=== PATIENT | female | born 1950 | race Caucasian/White ===

== ENCOUNTER 2021-01-21 09:48 | Outpatient (REF) | payer MEDICARE, MEDICAID, SELFPAY ==
[2021-01-21 10:43] LABS: Estimated Average Glucose 143 mg/dL; Hemoglobin A1c % 6.6 %
[2021-01-21 12:42] LABS: Alanine Aminotransferase 21 U/L (0-31); Albumin Level 4.3 g/dL (3.5-5.0); Alkaline Phosphatase 92 U/L (39-117); Anion Gap 14 (12-20); Aspartate Amino Transferase 17 U/L (5-31); Bilirubin Direct 0.2 mg/dL (0.0-0.5); Bilirubin Total 0.7 mg/dL (0.0-1.0); Blood Urea Nitrogen 19 mg/dL (9-16); Carbon Dioxide 27 mmol/L (22-29); Chloride 106 mmol/L (96-108); Cholesterol 158 mg/dL; Estimated Glomerular Filt Rate > 60; Glucose Random 124 mg/dL (60-115); HDL Cholesterol 40 mg/dL; LDL Cholesterol Calculated 99 mg/dl; Potassium 4.3 mmol/L (3.3-5.1); Sodium 143 mmol/L (135-145); Triglycerides 99 mg/dL
[2021-01-21 12:44] LABS: Thyroid Stimulating Hormone 0.99 uIU/mL (0.32-4.0)
== END 2021-01-21 09:49 | disposition home or self-care (01) ==
LOC: HO.LAB 09:48
PROVIDERS: PCP Internal Medicine; Visit Provider Internal Medicine
DX: R73.9 Hyperglycemia, unspecified (principal)
CPT/HCPCS: 36415; 80048; 80061; 80076; 83036; 84443

== ENCOUNTER 2021-05-27 09:07 | Outpatient (REF) | payer MEDICARE, MEDICAID, SELFPAY ==
--- NOTE | ~2021-05-27 | CT_ITS ---
EXAMINATION: CT HEAD WITHOUT CONTRAST CLINICAL INFORMATION: Concussion/head trauma COMPARISON: None TECHNIQUE: Contiguous axial imaging was performed from the skull base to vertex without intravenous administration of contrast. This CT examination was performed using dose optimization techniques as appropriate, variously including the following: *Automated exposure control *Adjustment of mA and/or kV according to patient size (this includes techniques or standardized protocols for targeted exams where dose is matched to indication/reason for exam; i.e. extremities or head) *Use of iterative reconstruction technique DLP: 642 mGy-cm FINDINGS: There is no evidence of an extra-axial collection. There is no evidence of intra-axial or extra-axial hemorrhage. The ventricles and extra-axial CSF spaces are appropriate. Whelan-white matter differentiation is normal. There is a small calcified or ossified 5 x 10 mm density adjacent to the right occipital lobe, question representing a small meningioma. No other mass, mass effect or infarct is seen. Review at bone windows is normal. No skull fracture is seen. Visualized paranasal sinuses, mastoid air cells and middle ears are clear. CT/CT head/brain wo con IMPRESSION: No acute intracranial findings. Question small 5 x 10 mm meningioma adjacent to the right occipital lobe.
== END 2021-05-27 09:08 | disposition home or self-care (01) ==
LOC: HO.CT 09:07
PROVIDERS: PCP Internal Medicine; Visit Provider Internal Medicine
DX: S06.0X9A Concussion with loss of consciousness of unspecified duration, initial encounter (principal); X58.XXXD Exposure to other specified factors, subsequent encounter
CPT/HCPCS: 70450

== ENCOUNTER 2021-10-01 16:33 | Emergency (ER) | payer MEDICARE, MEDICAID, SELFPAY ==
--- NOTE | ~2021-10-01 | CT_ITS ---
EXAMINATION: CT ABDOMEN AND PELVIS WITHOUT CONTRAST CLINICAL INFORMATION: Right flank pain radiating to right lower quadrant COMPARISON: CT abdomen pelvis 02/10/2017 TECHNIQUE: Multidetector volumetric imaging was performed from the superior aspect of the liver through the pubic symphysis. Sagittal and coronal reformatted images were obtained on the technologist's workstation. This CT examination was performed using dose optimization techniques as appropriate, variously including the following: *Automated exposure control *Adjustment of mA and/or kV according to patient size (this includes techniques or standardized protocols for targeted exams where dose is matched to indication/reason for exam; i.e. extremities or head) *Use of iterative reconstruction technique DLP: 547 mGy-cm FINDINGS: LUNG BASES: The visualized lung bases are unremarkable. Bibasilar atelectasis is present. LIVER, GALLBLADDER, AND BILIARY TREE: The liver is mildly enlarged measuring 17.5 cm in greatest length. Attenuation is decreased consistent with hepatic steatosis. No focal liver mass or bile duct dilatation is seen. The gallbladder is unremarkable with no evidence of definite radiopaque gallstones, gallbladder wall thickening, or obvious pericholecystic inflammatory changes. Some high density sludge may be present layering in the gallbladder. Gallbladder disease is a consideration, recommend ultrasound. PANCREAS: Unremarkable. SPLEEN: Unremarkable. ADRENAL GLANDS: Unremarkable. KIDNEYS AND URETERS: The kidneys are normal in size, shape, and attenuation. Punctate calcifications are seen in each kidney consistent with small calculi. The largest is on the left measuring only at best 3mm in size. No hydronephrosis, hydroureter, or ureteral calculi seen. No perinephric stranding. A 1.6 cm water density cortical cyst is noted on the right which needs no further follow-up. This is unchanged when compared to the 2017 study. No solid renal masses are seen but assessment without IV contrast is limited. BLADDER: Unremarkable. GASTROINTESTINAL TRACT: There are colonic diverticula without diverticulitis. The small and large bowel are otherwise unremarkable. The appendix is unremarkable. Previously seen thickening of the right lateral conal fascia has resolved. ABDOMINAL WALL: No significant hernia is appreciated. LYMPH NODES: No retroperitoneal lymphadenopathy. VASCULAR: Minimal calcific atherosclerotic changes present in the aorta and iliac vessels. PELVIC VISCERA: Unremarkable. OSSEOUS STRUCTURES: Extensive orthopedic hardware present in the lumbar spine and pelvis. Scoliosis convex to right. Kyphoplasty cement again seen in T11 and T12. Hemangiomas once again noted in the L3 and L4 vertebral bodies. CT/CT abdomen pelvis wo con IMPRESSION: 1. A definite cause for the right flank pain radiating to the right lower quadrant is not found. 2. There is an enlarged fatty liver. 3. There are bilateral punctate renal calculi without obstruction. 4. Colonic diverticula without diverticulitis. 5. Other findings as described above. Fleischner guidelines were followed.
--- NOTE | ~2021-10-01 | US_ITS ---
EXAMINATION: US PELVIS CLINICAL INFORMATION: Right pelvic pain COMPARISON: CT 10/01/2021 TECHNIQUE: Ultrasound of the pelvis is performed using both transabdominal and transvaginal transducers along with Doppler. Transvaginal imaging is performed due to inadequate visualization transabdominally. FINDINGS: Uterus: Uterus not seen, reportedly surgically absent. There are nabothian cysts in the remnant cervix consistent with a supracervical hysterectomy. Adnexa: Neither ovary seen. No adnexal mass. No pelvic free fluid. US/US pelvic and transvaginal IMPRESSION: No adnexal mass seen.
[2021-10-01 17:03] VITALS: BP 173/68; PULSE 60; RESP 16; TEMP 36.6; O2SAT 98; BMI 24.1
--- NOTE | 2021-10-01 17:22 | ED_ITS ---
HPI - Abdominal Pain General Chief Complaint: Abdominal Pain Stated Complaint: abd pain Time Seen by Provider: 10/01/21 17:05 Source: patient Mode of arrival: ambulatory History of Present Illness HPI narrative: 71-year-old female with a past medical history renal stone s/p ureter stenting, partial hysterectomy, presenting to the ED complaining of right flank pain radiating to right lower quadrant since this morning with associated nausea and vomiting. Denies fever, chills, diarrhea/constipation, dysuria/hematuria MD elicited complaint: abdominal pain and flank pain Pertinent past history: kidney stones Onset (ago): hour(s) Location: RLQ and R flank Severity: moderate Radiation: RLQ Associated symptoms: nausea and vomiting Related Data Home Medications Medication Instructions Recorded Confirmed loratadine 10 mg tablet 10 mg PO DAILY 12/31/20 05/02/21 Previous Rx's Medication Instructions Recorded alendronate 70 mg tablet 70 mg PO QWEEK #12 tab 12/26/20 hydroxyzine HCl 25 mg tablet 25 mg PO BEDTIME 30 Days #30 tab 02/28/21 lorazepam 1 mg tablet 1 mg PO DAILY #30 tab 05/08/21 simvastatin 10 mg tablet 10 mg PO DAILY #90 tab 06/16/21 cholecalciferol (vitamin D3) 25 25 mcg PO DAILY #90 cap 07/04/21 mcg (1,000 unit) capsule meloxicam 15 mg tablet 15 mg PO DAILY #10 tab 07/04/21 metformin 750 mg tablet,extended 750 mg PO DAILY #90 tab 07/22/21 release 24 hr Allergies Allergy/AdvReac Type Severity Reaction Status Date / Time Codeine Phosphate Allergy Unknown Unknown Verified 06/04/21 08:56 Review of Systems Review of Systems Constitutional: No Fever, No Chills, No Fatigue, No Malaise ENT/Mouth: No Hearing loss, No Ear Pain, No sore throat Eyes: No Eye Pain, No Swelling, No Redness Cardiovascular: No Chest Pain, No SOB, No Dyspnea on Exertion, No Palpitations Respiratory: No Cough, No Dyspnea Gastrointestinal: + Nausea,+ Vomiting, No Diarrhea, No Constipation, + Abdominal pain Genitourinary: No irregular bleeding, No Dysuria, No Urinary Frequency, No Hematuria, + Flank Pain Musculoskeletal: No joint pain, No Myalgias, No Joint Swelling Skin: No Skin Lesions, No rash Neuro: No Weakness, No Numbness, No Headache Yes all other systems are reviewed and are negative Physical Exam Vital Signs: Vital Signs: Last Vital Signs Temp 97.8 F 10/01/21 17:03 Pulse 60 10/01/21 17:03 Resp 16 10/01/21 17:03 BP 173/68 H 10/01/21 17:03 Pulse Ox 98 10/01/21 17:03 BMI result Body Mass Index 24.1 Const: General: cooperative, healthy appearing and no acute distress Orientation/consciousness: patient oriented x3 Limitations: no limitations HENMT: Head: Yes normal to inspection Ears: hearing grossly normal bilaterally General nose exam: Normal external nose present Face and sinus: Yes normal facial exam Eyes: General: appearance normal, both eyes and all related structures EOM: EOMs intact bilaterally Neck: Neck: Yes normal visual inspection and Yes no meningeal signs Resp: Effort & Inspection: normal respiratory effort and no respiratory distress Auscultation: clear to auscultation bilaterally Cardio: Rate: regular rate Heart sounds: S1 normal heart sound present and S2 normal heart sound present GI: Inspection: Yes normal to inspection Palpation (GI): Soft to palpation, nontender, no guarding and not rigid : General: Yes no CVA tenderness Back/Spine/Pelvis: Back: no CVA tenderness Skin: Rashes: no rashes Wounds: no wounds Neuro: General: patient oriented x3 and no meningeal signs Gait exam (Neuro): Normal gait present Extrem: General: Yes normal to inspection Course Course Course Narrative: -1743--mild leukocytosis of 12.0 -1800--ED care transferred to Dr. Ramirez pending remaining labs, UA, and CT abdomen/pelvis, dispo per results MDM - Abdominal Pain MDM Narrative Medical decision making narrative: 71-year-old female with a past medical history renal stone s/p ureter stenting, partial hysterectomy, presenting to the ED complaining of right flank pain radiating to right lower quadrant since this morning with associated nausea and vomiting. On exam vital signs stable, NAD/nontoxic, abdomen soft/nontender, no CVAT. Concern for renal stone/pyelo vs UTI. Lower concern for appendicitis/diverticulitis or pancreatitis/cholecystitis Plan: Labs, UA, CT abdomen pelvis, IVF, symptomatic treatment, re-evaluate Medical Records Attestation: I reviewed the patient's medical records. Lab Data Attestation: I reviewed the patient's lab results. Result diagrams: 10/01/21 17:30 10/01/21 17:30 Labs: Lab Results 10/01/21 Range/Units 17:30 WBC 12.0 H (4.8-10.8) X10*3/uL RBC 4.88 (4.20-5.50) X10*6/uL Hgb 14.4 (12.0-16.0) g/dl Hct 43.7 (37.0-47.0) % MCV 89.5 (80.0-98.0) fL MCH 29.5 (27.0-33.0) pg MCHC 33.0 (31.0-35.0) g/dl RDW 13.1 (11.0-16.0) % Plt Count 295 (160-400) X10*3/uL MPV 9.9 (9.4-12.3) fL Immature Gran % (Auto) 0.4 (0.0-0.4) % Neut % (Auto) 73.0 (45-73) % Lymph % (Auto) 18.4 L (20-40) % [place] % (Auto) 6.7 (2-11) % Eos % (Auto) 1.1 (0-4) % Baso % (Auto) 0.4 (0-2) % Lymph # (Auto) 2.2 (1.2-4.9) X10*3/uL [place] # (Auto) 0.8 (0.1-1.2) X10*3/uL Eos # (Auto) 0.1 (0.0-0.4) X10*3/uL Baso # (Auto) 0.1 (0.0-0.2) X10*3/uL Abs Immat Gran (auto) 0.05 H (0.00-0.03) X10*3/uL Absolute Neuts (auto) 8.8 H (2.0-8.3) x10*3/uL Absolute Nucleated RBC 0.000 (0.0-0.012) X10*3/uL Nucleated RBC % (auto) 0.0 (0.0-0.2) /100WBC Discharge Plan Discharge Clinical Impression: Acute right flank pain Patient Disposition: Still a Patient Prescriptions: No Action alendronate 70 mg tablet 70 mg PO QWEEK Qty: 12 RF: 1 hydroxyzine HCl 25 mg tablet 25 mg PO BEDTIME 30 Days Qty: 30 RF: 0 lorazepam 1 mg tablet 1 mg PO DAILY Qty: 30 RF: 0 simvastatin 10 mg tablet 10 mg PO DAILY Qty: 90 RF: 1 cholecalciferol (vitamin D3) 25 mcg (1,000 unit) capsule 25 mcg PO DAILY Qty: 90 RF: 0 meloxicam 15 mg tablet 15 mg PO DAILY Qty: 10 RF: 0 metformin 750 mg tablet extended release 24 hr 750 mg PO DAILY Qty: 90 RF: 0 loratadine 10 mg tablet 10 mg PO DAILY RF: 0 Referrals: Dean Colmenares MD [Primary Care Provider] - 2 days [facility] Past Medical History Attestation statement: The following information was validated with the patient. Surgical History Encounter for orthopedic aftercare following scoliosis surgery History of colonoscopy History of partial hysterectomy History of root canal procedure History of ureter stent History of vein stripping Status post breast reduction Family History Family History Father No problems noted. Mother Stroke Cancer Brother S/P triple vessel bypass Blind Brother Afib Daughter Bipolar 1 disorder Mental problem Family/Other FH: mental illness Social History Social History Housing: House Alcohol intake: current Alcohol intake frequency: holidays/special occasions only Patient Tobacco Use Status: Never used Tobacco e-Cigarette/Vaping Use: Never Used Second Hand Smoke Exposure: Yes Advance Directives: No Advance Directives Information Provided: Yes service: No Current occupational status: retired
[2021-10-01] MEDS: ondansetron HCL 4 MG/2 ML VIAL IVPUSH ×2 (17:33→19:06)
[2021-10-01] MEDS: Ketorolac Tromethamine 15 MG/ML VIAL IVPUSH ×2 (17:33→17:58)
[2021-10-01 17:34] LABS: MANUAL DIFF FLAG NO
[2021-10-01] MEDS: 0.9 % Sodium Chloride 1,000 ML 999 ML IVCONT (17:34)
[2021-10-01 17:36] LABS: Basophils Absolute Auto 0.1 X10*3/uL (0.0-0.2); Basophils Percent Auto 0.4 % (0-2); Eosinophils Absolute Auto 0.1 X10*3/uL (0.0-0.4); Eosinophils Percent Auto 1.1 % (0-4); Hematocrit 43.7 % (37.0-47.0); Hemoglobin 14.4 g/dl (12.0-16.0); Imm Gran Abs Auto 0.05 X10*3/uL (0.00-0.03); Imm Gran Pct Auto 0.4 % (0.0-0.4); Lymphocytes Absolute Auto 2.2 X10*3/uL (1.2-4.9); Lymphocytes Percent Auto 18.4 % (20-40); Mean Corpuscular Hemoglobin 29.5 pg (27.0-33.0); Mean Corpuscular Volume 89.5 fL (80.0-98.0); Mean Platelet Volume 9.9 fL (9.4-12.3); Monocytes Absolute Auto 0.8 X10*3/uL (0.1-1.2); Monocytes Percent Auto 6.7 % (2-11); Neutrophils Absolute Auto 8.8 x10*3/uL (2.0-8.3); Platelet Count 295 X10*3/uL (160-400); Red Blood Count 4.88 X10*6/uL (4.20-5.50); Red Cell Distribution Width 13.1 % (11.0-16.0)
[2021-10-01 17:59] LABS: Alanine Aminotransferase 21 U/L (0-31); Albumin Level 4.4 g/dL (3.5-5.0); Alkaline Phosphatase 80 U/L (39-117); Anion Gap 12 (12-20); Aspartate Amino Transferase 18 U/L (5-31); Bilirubin Direct 0.2 mg/dL (0.0-0.5); Bilirubin Total 0.5 mg/dL (0.0-1.0); Blood Urea Nitrogen 18 mg/dL (9-16); Calcium 9.8 mg/dL (8.4-10.2); Carbon Dioxide 27 mmol/L (22-29); Chloride 105 mmol/L (96-108); Estimated Glomerular Filt Rate > 60; Glucose Random 134 mg/dL (60-115); Lipase 33 U/L (8-78); Magnesium 2.1 mg/dL (1.6-2.6); Potassium 3.9 mmol/L (3.3-5.1); Sodium 140 mmol/L (135-145); Total Protein 7.2 g/dL (6.5-8.0)
[2021-10-01 18:21] LABS: Appearance Urine CLEAR; Color Urine YELLOW; Glucose Urine UA NEG (NEG); Leukocyte Esterase Urine NEG (NEG); Nitrite Urine NEG (NEG); PH 5.5 (5.0-8.0); Specific Gravity - Urine >= 1.030 (1.005-1.025); Urine Blood NEG (NEG); Urine Ketones NEG (NEG); Urine Protein NEG (NEG-TRACE)
[2021-10-01] MEDS: HYDROmorphone HCl 1 MG/ML SYRINGE IVPUSH (19:06)
== END 2021-10-01 21:14 | disposition home or self-care (01) ==
PROVIDERS: Physician Assistant; Emergency Provider Emergency Medicine; PCP Internal Medicine
DX: R10.31 Right lower quadrant pain (principal); Z79.899 Other long term (current) drug therapy
CPT/HCPCS: 36415; 74176; 76830; 76856; 80048; 80076; 81003; 83690; 83735; 85025; 96361; 96374; 96375; 96376; 99283; 99284; J1170; J1885; J2405

== ENCOUNTER 2021-10-07 13:02 | Outpatient (REF) | payer MEDICARE, MEDICAID, SELFPAY ==
--- NOTE | ~2021-10-07 | XR_ITS ---
EXAMINATION: XR ABDOMEN KUB CLINICAL INDICATION: Constipation. COMPARISON: CT 10/01/2021 TECHNIQUE: AP view of the abdomen. FINDINGS: Normal bowel gas pattern. No dilated loops of bowel. Scattered gas throughout the colon. No abnormal colonic stool burden. Spinal fusion hardware in place with scoliotic curvature of the spine. Degenerative changes of the hips, particularly of the right hip. XR/XR KUB IMPRESSION: Normal bowel gas pattern. No abnormal colonic stool burden.
== END 2021-10-07 13:03 | disposition home or self-care (01) ==
LOC: HO.XRAY 13:02
PROVIDERS: PCP Internal Medicine; Visit Provider Nurse Practitioner Family
DX: K59.00 Constipation, unspecified (principal)
CPT/HCPCS: 74018

== ENCOUNTER 2022-03-10 10:26 | Outpatient (REF) | payer MEDICARE, MEDICAID, SELFPAY ==
--- NOTE | ~2022-03-10 | CT_ITS ---
EXAMINATION: CT HEAD WITHOUT CONTRAST CLINICAL INFORMATION: Benign neoplasm of meninges. COMPARISON: CT brain 05/27/2021. TECHNIQUE: Contiguous axial imaging was performed from the skull base to vertex without intravenous administration of contrast. This CT examination was performed using dose optimization techniques as appropriate, variously including the following: *Automated exposure control *Adjustment of mA and/or kV according to patient size (this includes techniques or standardized protocols for targeted exams where dose is matched to indication/reason for exam; i.e. extremities or head) *Use of iterative reconstruction technique DLP: 670 mGy-cm FINDINGS: There is no evidence of acute intracranial hemorrhage or territorial infarction. No abnormal mass effect or midline shift is seen. Whelan to white matter differentiation is well preserved. No extra-axial fluid collections are identified. There is an extra-axial right parietal calcified lesion likely meningioma or dural calcification axial image 18/2. Dense pineal gland calcification is visualized, as well. The ventricles are normal in size. There is no abnormal attenuation within the brain parenchyma. The osseous structures and soft tissues are normal. The mastoid air cells and visualized portions of the paranasal sinuses are well aerated. CT/CT head/brain wo con IMPRESSION: No acute intracranial process seen. 7 mm calcified lesion right posterior parietal region likely calcified meningioma or calcification.
== END 2022-03-10 10:27 | disposition home or self-care (01) ==
LOC: HO.CT 10:26
PROVIDERS: Visit Provider Internal Medicine
DX: D32.9 Benign neoplasm of meninges, unspecified (principal)
CPT/HCPCS: 70450

== ENCOUNTER 2022-04-21 08:12 | Outpatient (REF) | payer MEDICARE, MEDICAID, SELFPAY ==
[2022-04-21 09:14] LABS: Hematocrit 45.9 % (37.0-47.0); Hemoglobin 14.9 g/dl (12.0-16.0); Mean Corpuscular HGB Conc 32.5 g/dl (31.0-35.0); Mean Corpuscular Volume 89.5 fL (80.0-98.0); Mean Platelet Volume 10.3 fL (9.4-12.3); Platelet Count 283 X10*3/uL (160-400); Red Blood Count 5.13 X10*6/uL (4.20-5.50); White Blood Count 6.6 X10*3/uL (4.8-10.8)
[2022-04-21 09:25] LABS: Estimated Average Glucose 128 mg/dL; Hemoglobin A1c % 6.1 %
[2022-04-21 09:34] LABS: Appearance Urine CLEAR; Color Urine YELLOW; Glucose Urine UA NEG (NEG); Leukocyte Esterase Urine TRACE (NEG); Nitrite Urine NEG (NEG); Urine Blood NEG (NEG); Urine Ketones NEG (NEG); Urine Protein NEG (NEG-TRACE)
[2022-04-21 09:46] LABS: RBC Urine 0 /HPF (0); Squamous Epithelial Cell Urine 1+ /LPF
[2022-04-21 10:42] LABS: Alanine Aminotransferase 19 U/L (0-31); Albumin Level 4.3 g/dL (3.5-5.0); Alkaline Phosphatase 76 U/L (39-117); Anion Gap 11 (12-20); Aspartate Amino Transferase 16 U/L (5-31); Bilirubin Direct 0.2 mg/dL (0.0-0.5); Bilirubin Total 0.6 mg/dL (0.0-1.0); Blood Urea Nitrogen 17 mg/dL (9-16); Calcium 9.4 mg/dL (8.4-10.2); Carbon Dioxide 29 mmol/L (22-29); Chloride 107 mmol/L (96-108); Cholesterol 157 mg/dL; Estimated Glomerular Filt Rate > 60; Glucose Random 110 mg/dL (60-115); HDL Cholesterol 42 mg/dL; LDL Cholesterol Calculated 99 mg/dl; Potassium 4.4 mmol/L (3.3-5.1); Sodium 143 mmol/L (135-145); Total Protein 6.8 g/dL (6.5-8.0); Triglycerides 81 mg/dL
[2022-04-21 10:49] LABS: Thyroid Stimulating Hormone 1.04 uIU/mL (0.32-4.0)
== END 2022-04-21 08:13 | disposition home or self-care (01) ==
LOC: HO.LAB 08:12
PROVIDERS: PCP Internal Medicine; Visit Provider Internal Medicine
DX: D32.9 Benign neoplasm of meninges, unspecified (principal); R73.9 Hyperglycemia, unspecified; E78.5 Hyperlipidemia, unspecified
CPT/HCPCS: 36415; 80048; 80061; 80076; 81001; 83036; 84443; 85027

== ENCOUNTER 2023-03-31 09:05 | Outpatient (REF) | payer MEDICARE, MEDICAID, SELFPAY ==
[2023-03-31 09:34] LABS: Hemoglobin 14.7 g/dl (12.0-16.0); Mean Corpuscular HGB Conc 32.7 g/dl (31.0-35.0); Mean Corpuscular Hemoglobin 29.1 pg (27.0-33.0); Mean Corpuscular Volume 89.1 fL (80.0-98.0); Mean Platelet Volume 10.3 fL (9.4-12.3); Platelet Count 299 X10*3/uL (160-400); Red Blood Count 5.05 X10*6/uL (4.20-5.50); Red Cell Distribution Width 13.2 % (11.0-16.0); White Blood Count 11.1 X10*3/uL (4.8-10.8)
[2023-03-31 09:49] LABS: Estimated Average Glucose 128 mg/dL; Hemoglobin A1c % 6.1 %
[2023-03-31 10:28] LABS: Erythrocyte Sedimentation Rate 2 MM/HR (0-20)
[2023-03-31 10:44] LABS: Alanine Aminotransferase 24 U/L (0-31); Albumin Level 4.3 g/dL (3.5-5.0); Alkaline Phosphatase 78 U/L (39-117); Anion Gap 11 (12-20); Aspartate Amino Transferase 15 U/L (5-31); Bilirubin Direct 0.2 mg/dL (0.0-0.5); Bilirubin Total 0.7 mg/dL (0.0-1.0); Blood Urea Nitrogen 24 mg/dL (9-16); Calcium 9.9 mg/dL (8.4-10.2); Carbon Dioxide 31 mmol/L (22-29); Chloride 107 mmol/L (96-108); Cholesterol 167 mg/dL; Estimated Glomerular Filt Rate > 60; Glucose Random 100 mg/dL (60-115); HDL Cholesterol 46 mg/dL; LDL Cholesterol Calculated 94 mg/dl; Potassium 4.7 mmol/L (3.3-5.1); Sodium 144 mmol/L (135-145); Triglycerides 136 mg/dL
[2023-03-31 11:00] LABS: Appearance Urine Clear; Color Urine Yellow; Glucose Urine UA Negative (Negative); Leukocyte Esterase Urine Large (3+) (Negative); Nitrite Urine Negative (Negative); PH 5.5 (5.0-9.0); Specific Gravity - Urine 1.025 (1.005-1.025); UMIC TRIGGER UA YES; Urine Blood Negative (Negative); Urine Ketones Trace mg/dL (Negative); Urine Protein Trace mg/dL (Neg-Trace)
[2023-03-31 11:02] LABS: Thyroid Stimulating Hormone 1.02 uIU/mL (0.32-4.0)
[2023-03-31 11:22] LABS: Bacteria Urine None Seen (None Seen); Calcium Oxalate Crystals Urine Present; Hyaline Casts Urine 0-2 /LPF (0-2); Renal Epithelial Cells Urine Present; Transitional Epi Cells Urine Present
== END 2023-03-31 09:06 | disposition home or self-care (01) ==
LOC: HO.LAB 09:05
PROVIDERS: Nurse Practitioner Family; PCP Internal Medicine; Visit Provider Internal Medicine
DX: D32.9 Benign neoplasm of meninges, unspecified (principal); F41.9 Anxiety disorder, unspecified; R73.9 Hyperglycemia, unspecified; H92.01 Otalgia, right ear; R51.9 Headache, unspecified; E78.5 Hyperlipidemia, unspecified
CPT/HCPCS: 36415; 80048; 80061; 80076; 81001; 81003; 83036; 84443; 85027; 85652; 86141

== ENCOUNTER → 2023-04-23 08:28 | Outpatient (BNVA) | payer MEDICARE, MEDICAID, SELFPAY | PROVIDERS: PCP Internal Medicine; Visit Provider Nurse Practitioner | DX: Z01.818 Encounter for other preprocedural examination (principal); D32.9 Benign neoplasm of meninges, unspecified | CPT/HCPCS: 99202 ==

== ENCOUNTER 2023-07-06 10:58 | Day surgery (SDC) | payer MEDICARE, MEDICAID, SELFPAY ==
[2023-07-01 10:59] VITALS: BMI 25.7
--- NOTE | 2023-07-02 13:21 | HO.ANESPROP2 ---
Documented by User: Debbi Pederson NP 07/02/23 13:28 HPI - Anesthesia Eval Consult details Narrative: 73yo F for Colonoscopy PMFSH Active Problems Active Problems: All Active Problems (Updated 07/01/23 @ 15:21 by Dean Colmenares MD) Paronychia of fifth toe of left foot (Acute) Pre-op examination (Acute) Scalp pain (Acute) Otalgia of right ear (Acute) Anxiety (Acute) Hyperlipidemia (Acute) Meningioma (Acute) Constipation (Acute) Rash (Acute) Right low back pain (Acute) Concussion (Acute) Annual physical exam (Acute) Hyperglycemia (Acute) Past Medical History Medical History Anxiety Constipation Diabetes Hyperlipidemia Meningioma Family History Family History Father No problems noted. Mother Stroke Cancer Brother S/P triple vessel bypass Blind Brother Afib Daughter Bipolar 1 disorder Mental problem Family/Other FH: mental illness Surgical History Surgical History Encounter for orthopedic aftercare following scoliosis surgery History of colonoscopy History of partial hysterectomy History of root canal procedure History of ureter stent History of vein stripping Status post breast reduction Social History Social History Housing: House Alcohol intake: current Alcohol intake frequency: holidays/special occasions only Patient Tobacco Use Status: Never used Tobacco e-Cigarette/Vaping Use: Never Used Second Hand Smoke Exposure: Yes Are you DNR?: No Advance Directives: No Advance Directives Information Provided: Yes Nutrition Risks: No Nutritional Risk service: No Current occupational status: retired Cognitive needs: No Hearing needs: No Vision needs: No Meds Allergies Allergy/AdvReac Type Severity Reaction Status Date / Time codeine Allergy Unknown Verified 04/25/23 11:55 Home Medications Medication Instructions Recorded Confirmed Last Taken Type loratadine 10 mg tablet 10 mg PO DAILY 12/31/20 07/06/23 Unknown History Exam Exam Date and Time: July 02, 2023 1321 Height,Weight and Vital Signs: Height 5 ft 4 in Weight 68.039 kg Pertinent Lab Results Pertinent Lab Results: Laboratory Tests 03/31/23 03/31/23 09:21 09:21 WBC 11.1 H Hgb 14.7 Hct 45.0 Plt Count 299 Sodium 144 Potassium 4.7 Chloride 107 Carbon Dioxide 31 H BUN 24 H Creatinine 0.69 Assessment and Plan Assessment Anesthesia Assessment: Chart Reviewed Documented by User: Tammie Schafer MD 07/06/23 11:52 PMFSH Active Problems Active Problems: All Active Problems (Updated 07/06/23 @ 11:20 by Tammie Schafer MD) Paronychia of fifth toe of left foot (Acute) Pre-op examination (Acute) Scalp pain (Acute) Otalgia of right ear (Acute) Anxiety (Acute) Hyperlipidemia (Acute) ?Meningioma -Initial CT scan 2020 done for head trauma- hit head on satellite dish. Incidental finding. 7mm on latest CT scan 2021. No increase in size compared to 2020 Constipation (Acute) Rash (Acute) Right low back pain (Acute) Concussion (Acute) Annual physical exam (Acute) Hyperglycemia (Acute) Osteoporosis Past Medical History Medical History Anxiety Constipation Diabetes Hyperlipidemia Meningioma Family History Family History Father No problems noted. Mother Stroke Cancer Brother S/P triple vessel bypass Blind Brother Afib Daughter Bipolar 1 disorder Mental problem Family/Other FH: mental illness Family history of problems with anesthesia: No Surgical History Surgical History Encounter for orthopedic aftercare following scoliosis surgery History of colonoscopy History of partial hysterectomy History of root canal procedure History of ureter stent History of vein stripping Status post breast reduction History of Problems with Anesthesia: No Social History Social History Housing: House Alcohol intake: current Alcohol intake frequency: holidays/special occasions only Patient Tobacco Use Status: Never used Tobacco e-Cigarette/Vaping Use: Never Used Second Hand Smoke Exposure: Yes Are you DNR?: No Advance Directives: No Advance Directives Information Provided: Yes Nutrition Risks: No Nutritional Risk service: No Current occupational status: retired Cognitive needs: No Hearing needs: No Vision needs: No Meds Allergies Allergy/AdvReac Type Severity Reaction Status Date / Time codeine Allergy Unknown Verified 04/25/23 11:55 Home Medications Medication Instructions Recorded Confirmed Last Taken Type loratadine 10 mg tablet 10 mg PO DAILY 12/31/20 07/06/23 Unknown History Exam Height,Weight and Vital Signs: Height 5 ft 4 in Weight 68.039 kg Vital Signs Temp Pulse Resp BP Pulse Ox O2 Del Method 07/06/23 11:01 97 F 92 20 147/86 H 97 Room Air Pertinent Lab Results Pertinent Lab Results: Laboratory Tests 03/31/23 03/31/23 09:21 09:21 WBC 11.1 H Hgb 14.7 Hct 45.0 Plt Count 299 Sodium 144 Potassium 4.7 Chloride 107 Carbon Dioxide 31 H BUN 24 H Creatinine 0.69 Lab Results 07/06/23 Range/Units 11:16 POC Glucose 91 (60-115) mg/dL Airway Mallampati Class: II TM Dist: >3cm Neck ROM: Full (A little achy from positioning) Loose/Missing/Broken Teeth: No (Denies broken, loose, missing teeth) Heart: RRR Lungs: CTAB Assessment and Plan Assessment Anesthesia Assessment: Anesthesia Plan Discussed Final Anesthetic Review Family History of Problems with Anesthesia: No History of Problems with Anesthesia: No NPO: Yes ASA Class: II Final Preanesthetic Review: No Changes in Pt Med Stat, Meds/Allgs Chart Reviewed, Consent Obtained/Reviewed and Anes Risks/Benef Reviewed Patient Risk: Low Procedure Risk: Low Assessment/Block/Sedation in SS: Assess/Block/Sedation-SS Anesthetic Plan Anesthetic Plan: GA and MAC: Disposition: Standard PACU
[2023-07-06 11:01] VITALS: BP 147/86; PULSE 92; RESP 20; TEMP 36.1; O2SAT 97
[2023-07-06 11:19] LABS: Glucose, Whole Blood 91 mg/dL (60-115)
[2023-07-06] MEDS: Lactated Ringers 1,000 ML 100 ML IVCONT (11:40)
--- NOTE | 2023-07-06 12:18 | MHC.SHP ---
Pre-Procedural Eval Section A Date of Service: 07/06/23 Section B Chief Complaint: Encounter for screening for malignant neoplasm Relevant Family History (Specify if Yes): No Relevant Social History: None Present Medications: see Short Stay Collaborative assessment Medical History: Significant History (Anxiety Constipation Diabetes Hyperlipidemia Meningioma) History of Previous Operations: Relevant previous surgery/procedure and date(s) (ncounter for orthopedic aftercare following scoliosis surgery History of colonoscopy History of partial hysterectomy History of root canal procedure History of ureter stent History of vein stripping Status post breast reduction) Allergies: Allergies Allergy/AdvReac Type Severity Reaction Status Date / Time codeine Allergy Unknown Verified 04/25/23 11:55 Review of Systems Sugical H&P ROS: Negative: Constitution, Cardiovascular, Respiratory, Neurological, Psychiatric, Hem-Onc, Allergic/Immunologic, Gastrointestinal, Genitourinary, Musculoskeletal, Integumentary, Endocrine and Eyes/Ears/Nose/Throat Exam Surgical H&P Exam: Normal: HEENT, Normal: Heart, Normal: Lungs, Normal: Extremities, Normal: Abdomen, Normal: Skin and Normal: Neurological Plan Diagnosis/Plan: Unchanged I have reviewed the history and physical and performed a pertinent physical examination on my patient. No changes have occurred unless specified. Time Spent With Patient Time: Total time managing care of this patient today ____ minutes.
--- NOTE | 2023-07-06 12:20 | W.PM.OPN ---
Operative Note Operative Note Date of Service: 07/06/23 Narrative: Operative Information Procedure Description: Colonoscopy Indication: screening Anesthesia: MAC COLONOSCOPY Instrument: Olympus variable stiffness pediatric scope 190L Colonoscopy Monitoring: Vital signs and clinical assessment, continuous EKG monitoring, Pulse oximetry, Carbon Dioxide monitoring and blood pressure monitoring were done throughout the procedure. Colon withdrawal time was 14 minutes. Procedure: The patient was placed in the left lateral decubitis position and pre-procedure medications were administered. After a digital rectal examination of the ano-rectum, the video colonoscope was inserted into the rectum and advanced through the colon to the cecum/TI. The colonoscope was slowly withdrawn in a retrograde panoramic fashion and the colon mucosa was carefully examined including a retroflexed view of the rectum. Findings and interventions are described below. Procedure Difficulty: easy Findings: Terminal Ileum-normal Cecum: 10 mm sessile polyp removed with cold snare Ascending Colon: normal Transverse Colon -normal Descending Colon: 6-7 mm sessile polyp removed with cold forceps Sigmoid Colon: moderate diverticulosis Rectum: Retroflexion with medium sized internal hemorrhoids, grade II with skin tags, 10 mm sessile polyp removed with cold snare and 4-6 mm sessile polyp removed with cold forceps Anorectum - normal Colon preparation: Penn Laird Bowel Preparation Scale Right colon; 2 Transverse colon: 3 Left colon; 3 (0 = Unprepared colon segment with mucosa not seen due to solid stool that cannot be cleared. 1 = Portion of mucosa of the colon segment seen, but other areas of the colon segment not well seen due to staining, residual stool and/or opaque liquid. 2 = Minor amount of residual staining, small fragments of stool and/or opaque liquid, but mucosa of colon segment seen well. 3 = Entire mucosa of colon segment seen well with no residual staining, small fragments of stool or opaque liquid) Impression and Post Procedure Diagnosis: polyps internal hemorrhoids diverticular disease Plan: High fiber diet leaflet Avoid straining at stool, epsom salts and sitz bath, anusol supps or cream Repeat Colonoscopy in 3-4 years due to adenomatous polyps by pit markings or earlier if clinically indicated Above findings were reviewed with the patient and relevant handouts were provided if indicated.
[2023-07-06 13:14] VITALS: BP 98/53; PULSE 81; RESP 16; TEMP 36.1; O2SAT 94
[2023-07-06 13:29] VITALS: BP 146/77; PULSE 70; RESP 16; TEMP 36.1; O2SAT 97
== END 2023-07-06 14:03 | disposition home or self-care (01) ==
PROVIDERS: PCP Internal Medicine; Visit Provider Internal Medicine Gastroenterology
PROC: 0DJD8ZZ Inspection of Lower Intestinal Tract, Via Natural or Artificial Opening Endoscopic (ICD-10-PCS; CPT 45378; principal; 2023-07-06 12:40)
DX: Z12.11 Encounter for screening for malignant neoplasm of colon (principal); D12.8 Benign neoplasm of rectum; K57.30 Diverticulosis of large intestine without perforation or abscess without bleeding; K64.1 Second degree hemorrhoids; K64.4 Residual hemorrhoidal skin tags; K59.00 Constipation, unspecified; E11.9 Type 2 diabetes mellitus without complications; E78.5 Hyperlipidemia, unspecified; D32.9 Benign neoplasm of meninges, unspecified; Z90.711 Acquired absence of uterus with remaining cervical stump; Z79.899 Other long term (current) drug therapy; Z79.84 Long term (current) use of oral hypoglycemic drugs
CPT/HCPCS: 45380; 45385; 82947; 88305; J2405

== ENCOUNTER → 2023-07-06 10:58 | Outpatient (BNV) | payer MEDICARE, MEDICAID, SELFPAY | PROVIDERS: PCP Internal Medicine; Visit Provider Internal Medicine Gastroenterology | DX: Z12.11 Encounter for screening for malignant neoplasm of colon (principal); D12.0 Benign neoplasm of cecum; D12.4 Benign neoplasm of descending colon; D12.8 Benign neoplasm of rectum; K57.30 Diverticulosis of large intestine without perforation or abscess without bleeding; K64.9 Unspecified hemorrhoids | CPT/HCPCS: 45380; 45385 ==

== ENCOUNTER 2023-07-15 09:06 | Outpatient (REF) | payer MEDICARE, MEDICAID, SELFPAY ==
--- NOTE | ~2023-07-15 | MR_ITS ---
EXAMINATION: MR BRAIN WITH AND WITHOUT CONTRAST CLINICAL INFORMATION: Benign neoplasm of the meninges COMPARISON: CT head 03/10/2022 TECHNIQUE: MRI of the brain was obtained using routine sequences before and following administration of intravenous contrast. A total of 6.5 mL of Gadavist was administered intravenously. FINDINGS: 8 mm calcified enhancing extra-axial dural based mass along the right parieto-occipital convexity as seen on CT compatible with a small meningioma. Mild subjacent mass effect without vasogenic edema. No herniation pattern. No acute infarct. Suspected 3 mm small cavernoma within the anterior aspect of the right superior frontal gyrus with central punctate T2 hyperintensity in a peripheral T2 hypointense hemosiderin rim without surrounding vasogenic edema to suggest recent hemorrhage. Presumed punctate chronic microhemorrhage within the high right superior frontal gyrus. No extra-axial fluid collection. Mild age-appropriate global cerebral volume loss. Minimal T2 FLAIR hyperintensity within the periventricular white matter of no clinical significance. The intracranial dural venous sinus and arterial flow voids are preserved. Normal appearance of the midline structures. The orbits are grossly unremarkable. Retention cyst/polyp within the posterior right maxillary sinus and mild patchy ethmoid air cell mucosal disease. Left inferior mastoid tip effusion. Partially imaged is cervical spondylosis. Injected cosmetic material within the facial soft tissues. MR/MR head/brain wo/w con IMPRESSION: Densely calcified 8 mm parieto-occipital convexity meningioma with mild regional mass effect but no vasogenic edema.
[2023-07-15] MEDS: gadobutroL 7.5 ML VIAL IVPUSH (10:21)
== END 2023-07-15 09:07 | disposition home or self-care (01) ==
LOC: HO.MRI 09:06
PROVIDERS: PCP Internal Medicine; Visit Provider Nurse Practitioner
DX: D32.9 Benign neoplasm of meninges, unspecified (principal)
CPT/HCPCS: 70553; A9585

== ENCOUNTER 2023-07-20 08:51 | Outpatient (AMB) | payer MEDICARE, MEDICAID, SELFPAY ==
--- NOTE | 2023-07-20 08:54 | MHC.OFFVIS ---
Intake Vital Signs 07/20/23 08:56 Height 5 ft 4 in Weight 147 lb 11.355 oz BMI 25.4 BP 179/92 H Blood Pressure Location Lt brachial Position Sitting Pulse 75 Intake Visit Reasons: S/P [place]; Dr. Mosquera Intake Note: Mellissa presents in the office as a follow up colonoscopy. CC: She states that she is having issues sleeping. She states that no concerns since her colonoscopy - little drowsy during the day. Allergies codeine Allergy (Verified 07/29/23 13:04) Unknown HPI S/P [place]; Dr. Mosquera HPI Details Assessment & Plan (1) Pre-op examination: Code(s): Z01.818 - Encounter for other preprocedural examination Plan: She says that she was told she had a polyp and to repeat the procedure in 10 years. We will request the records. There are no prior problems with anesthesia or sedation She denies any cardiac or respiratory problems. NO ID problems. A paternal aunt of CRC in 60's and her dtr may have had a polyp. She has a lot of health concerns that have nothing to do with her colonoscopy 1 of which is that and meningioma was discovered on incidental CT scan after she had a head trauma. I explained to her that these things frequently are nothing but she is quite insistent that she wants to have it checked out. I guess she was referred to a neurologist but they will even see her until an MRI of her head is ordered. All see if I can at least get this ordered for her as a convenience. (2) Meningioma: Comment: discovered on CT of head Code(s): D32.9 - Benign neoplasm of meninges, unspecified Medications: New sodium,potassium,m ag sulfates 17.5-3 .13-1.6 gram (Supr ep Bowel Prep Kit) 480 mL orally; 3 54 mL 0RF Z01.818 - Encounte r for other prepro cedural examinatio n COLONOSCOPY 07/06/23 Findings: Terminal Ileum-normal Cecum: 10 mm sessile polyp removed with cold snare Ascending Colon: normal Transverse Colon -normal Descending Colon: 6-7 mm sessile polyp removed with cold forceps Sigmoid Colon: moderate diverticulosis Rectum: Retroflexion with medium sized internal hemorrhoids, grade II with skin tags, 10 mm sessile polyp removed with cold snare and 4-6 mm sessile polyp removed with cold forceps Anorectum - normal Impression and Post Procedure Diagnosis: polyps internal hemorrhoids diverticular disease Plan: High fiber diet leaflet Avoid straining at stool, epsom salts and sitz bath, anusol supps or cream Repeat Colonoscopy in 3-4 years due to adenomatous polyps by pit markings or earlier if clinically indicated BIOPSY Received: 07/06/23 Diagnosis A. Cecum, polypectomy: Clinically polypoid colonic mucosa with dilated lymphatics; otherwise within normal limits. B. Colon, descending, polypectomy: Hyperplastic mucosal polyp. C. Rectum, polypectomy: Fragments of tubular adenoma; negative for high-grade dysplasia or carcinoma MRI of BRAIN 07/15/23 FINDINGS: 8 mm calcified enhancing extra-axial dural based mass along the right parieto-occipital convexity as seen on CT compatible with a small meningioma. Mild subjacent mass effect without vasogenic edema. No herniation pattern. No acute infarct. Suspected 3 mm small cavernoma within the anterior aspect of the right superior frontal gyrus with central punctate T2 hyperintensity in a peripheral T2 hypointense hemosiderin rim without surrounding vasogenic edema to suggest recent hemorrhage. Presumed punctate chronic microhemorrhage within the high right superior frontal gyrus. No extra-axial fluid collection. Mild age-appropriate global cerebral volume loss. Minimal T2 FLAIR hyperintensity within the periventricular white matter of no clinical significance. The intracranial dural venous sinus and arterial flow voids are preserved. Normal appearance of the midline structures. The orbits are grossly unremarkable. Retention cyst/polyp within the posterior right maxillary sinus and mild patchy ethmoid air cell mucosal disease. Left inferior mastoid tip effusion. Partially imaged is cervical spondylosis. Injected cosmetic material within the facial soft tissues. MR/MR head/brain wo/w con IMPRESSION: Densely calcified 8 mm parieto-occipital convexity meningioma with mild regional mass effect but no vasogenic edema. TODAY'S VISIT The procedure should be repeated in 5 years due to the finding of a tubular adenoma. The procedure was well tolerated. The results were explained and the patient is agreeable to the follow-up interval as stated. The bowel pattern has returned to normal. Education was provided to tell any 1st degree relatives about their findings to be sure that they are screened by age 45. Educated that they will be put on a recall list when it is time for their repeat scope but should they move out of state or away from the hospital they will need to remember along with their primary to repeat the procedure in a timely fashion to avoid any adverse complications. We review the MRi I ordered as a courtesy for her concerns re: meningioma. I tdoes not seem like anything serious, so I will refer her to neurology for definitive care. She prefers [facility] Medical History (Updated 07/29/23 @ 13:15 by VILLA Rojo) Knee pain Diabetes Constipation Meningioma Hyperlipidemia Anxiety Surgical History History of root canal procedure Encounter for orthopedic aftercare following scoliosis surgery History of ureter stent History of vein stripping History of partial hysterectomy History of colonoscopy Status post breast reduction Family History Father No problems noted. Mother Stroke Cancer Brother S/P triple vessel bypass Blind Brother Afib Daughter Bipolar 1 disorder Mental problem Family/Other FH: mental illness Social History Housing: House Alcohol intake: current Alcohol intake frequency: holidays/special occasions only Patient Tobacco Use Status: Never used Tobacco e-Cigarette/Vaping Use: Never Used Second Hand Smoke Exposure: Yes service: No Current occupational status: retired Cognitive needs: No Hearing needs: No Vision needs: No Review of Systems Const Denies fatigue, Denies fever(s), Denies night sweats, Denies poor appetite and Denies weight loss ENT Reports Normal hearing present, Denies dental pain, Denies dysphagia, Denies hearing loss, Denies mouth pain, Denies odynophagia, Denies throat swelling, Denies tongue swelling and Reports other (Dentition adequate) Card Reports no additional complaints Resp Reports no additional complaints GI Denies abdominal pain, Denies melena, Denies bloating, Denies hematochezia, Denies constipation, Denies GI cramping, Denies dysphagia, Denies excessive flatus, Denies early satiety, Denies heartburn, Denies diarrhea, Denies nausea, Denies odynophagia, Denies vomiting and Denies hematemesis Skin/Breast Denies pruritus, Denies lesions, Denies rash and Denies jaundice Neuro Reports Normal hearing present and Denies Abnormal speech present Endo Denies fatigue Aller/Immun Denies throat swelling and Denies tongue swelling Physical Exam Vital Signs: Last Vital Signs Pulse 75 07/20/23 08:56 BP 179/92 H 07/20/23 08:56 BMI result Body Mass Index 25.4 Const General: cooperative, no acute distress, well developed and well groomed Nutritional Appearance: average body habitus and well nourished Orientation/consciousness: oriented to person, oriented to place and oriented to time Limitations: No language barrier HEENT Head: Yes normocephalic and Yes atraumatic Eyes General: appearance normal, both eyes and all related structures Pupils: Equal, round and reactive pupils present Neck Neck: Yes normal visual inspection and Yes no lymphadenopathy Thyroid: Thyroid normal Resp Effort & Inspection: normal respiratory effort and able to speak in complete sentences Auscultation: clear to auscultation bilaterally Cardio Rate: regular rate Rhythm: regular rhythm Heart sounds: Normal, physiologic split S2 sound present Peripheral pulses: radial pulses present and posterior tibial pulses present GI Inspection: No distended and No Abdominal panniculus present Palpation (GI): Soft to palpation, nontender, no guarding, not rigid and No hepatosplenomegaly present Percussion: Yes normal to percussion Auscultation: normal bowel sounds Rectal Exam - Female: deferred Skin General skin exam: no rashes or lesions noted, turgor normal, skin not dry, no jaundice, No spider nevi and no striae Rashes: no rashes Nails: normal Neuro General: oriented to person, oriented to place and oriented to time Cranial nerves: Yes Equal, round and reactive pupils present and Yes Normal hearing present Speech: No Abnormal speech present Extrem General: Yes normal to inspection, No clubbing, No cyanosis and No edema Psych Appearance: grossly normal and well kempt Mental Status: mental status grossly normal Speech and movement: Normal speech and movement present Affect: normal affect Attitude: cooperative Thought process: Normal thought process present and not confabulating Thought content: Normal thought content present Insight: Fair insight present (Psych) Judgement: Fair judgement present (Psych) Assessment & Plan Assessment & Plan (1) Tubular adenoma of colon: Code(s): D12.6 - Benign neoplasm of colon, unspecified Plan: The procedure should be repeated in 5 years due to the finding of a tubular adenoma. The procedure was well tolerated. The results were explained and the patient is agreeable to the follow-up interval as stated. The bowel pattern has returned to normal. Education was provided to tell any 1st degree relatives about their findings to be sure that they are screened by age 45. Educated that they will be put on a recall list when it is time for their repeat scope but should they move out of state or away from the hospital they will need to remember along with their primary to repeat the procedure in a timely fashion to avoid any adverse complications. We review the MRi I ordered as a courtesy for her concerns re: meningioma. I tdoes not seem like anything serious, so I will refer her to neurology for definitive care. She prefers [facility]. prn. (2) Meningioma: Comment: discovered on CT of head Code(s): D32.9 - Benign neoplasm of meninges, unspecified Orders: Referrals Neurology Referral D32.9 - Benign neoplasm of meninges, unspecified Coding Level of Care Code Est Pt Level 3 (34366) Diagnoses Tubular adenoma of colon D12.6 Meningioma D32.9
[2023-07-20 08:56] VITALS: BP 179/92; PULSE 75; BMI 25.4
== END 2023-07-20 09:42 | disposition home or self-care (01) ==
PROVIDERS: PCP Internal Medicine; Visit Provider Nurse Practitioner
DX: D12.6 Benign neoplasm of colon, unspecified (principal); D32.9 Benign neoplasm of meninges, unspecified
CPT/HCPCS: 99213

== ENCOUNTER → 2023-07-20 08:51 | Outpatient (BNVA) | payer MEDICARE, MEDICAID, SELFPAY | PROVIDERS: PCP Internal Medicine; Visit Provider Nurse Practitioner | DX: D12.6 Benign neoplasm of colon, unspecified (principal); D32.9 Benign neoplasm of meninges, unspecified | CPT/HCPCS: 99212 ==

== ENCOUNTER 2023-07-29 12:23 | Outpatient (AMB) | payer MEDICARE, MEDICAID, SELFPAY ==
--- NOTE | 2023-07-29 13:01 | MHC.OFFWIV ---
Intake Vital Signs 07/29/23 13:04 Height 5 ft 4 in Weight 147 lb BMI 25.2 BP 126/72 Blood Pressure Location Rt brachial Position Sitting Pulse 95 Pulse Source Pulse Oximeter Temp 97.2 F Temp Source Temporal Artery Scan Pulse Oximetry (%) 99 Oxygen Delivery Method Room Air Intake Visit Reasons: EST/right knee pain from fall Intake Note: Pt is here c/o right knee pain. Pt states she tripped and fell this morning. Patient Tobacco Use Status: Never used Tobacco Allergies codeine Allergy (Verified 07/29/23 13:04) Unknown Do you need a note to return to daycare/school/sports/work: No HPI HPI Comments History of Present Illness Details 73-year-old female presents for right knee pain after a fall. Patient was walking her shoe caught stealing her knee. She is complaining of some right knee pain and pain with bending. Able to bear weight. [facility] Medical History (Updated 07/29/23 @ 13:15 by VILLA Rojo) Knee pain Diabetes Constipation Meningioma Hyperlipidemia Anxiety Surgical History History of root canal procedure Encounter for orthopedic aftercare following scoliosis surgery History of ureter stent History of vein stripping History of partial hysterectomy History of colonoscopy Status post breast reduction Family History Father No problems noted. Mother Stroke Cancer Brother S/P triple vessel bypass Blind Brother Afib Daughter Bipolar 1 disorder Mental problem Family/Other FH: mental illness Social History Housing: House Alcohol intake: current Alcohol intake frequency: holidays/special occasions only Patient Tobacco Use Status: Never used Tobacco e-Cigarette/Vaping Use: Never Used Second Hand Smoke Exposure: Yes service: No Current occupational status: retired Cognitive needs: No Hearing needs: No Vision needs: No Review of Systems Musc Reports arthralgias and Reports joint swelling Physical Exam Vital Signs: Last Vital Signs Temp 97.2 F 07/29/23 13:04 Pulse 95 07/29/23 13:04 BP 126/72 07/29/23 13:04 Pulse Ox 99 07/29/23 13:04 Oxygen Delivery Method Room Air 09/28/23 13:04 BMI result Body Mass Index 25.2 Extrem Other: Prepatellar effusion mild tenderness to palpation anterior surface of the knee. No laxity with varus valgus stress no laxity with anterior posterior draw Assessment & Plan Assessment & Plan (1) Knee pain: Code(s): M25.569 - Pain in unspecified knee Qualifiers: Chronicity: acute Laterality: right Qualified Code(s): M25.561 - Pain in right knee Plan: Exam notable for Prepatellar effusion mild tenderness to palpation anterior surface of the knee. No laxity with varus valgus stress no laxity with anterior posterior draw Signs symptoms consistent with knee effusion. Will should x-ray the evaluated for occult fracture low suspicion at this time. Recommend symptomatic treatment ice elevation compression bearing weight as tolerated. Discharge instructions, follow up and treatment are discussed with patient in my usual fashion. Alternatives in treatment are also discussed. The patient will return for worsening symptoms or as needed. Advised that any labs/imaging ordered will be followed up on and contact made if further treatment needed. Counseled that patient's condition may require further evaluation and/or treatment. Symptoms of concern for worsening disorder discussed in detail in my customary manner. Patient does verbalize understanding of the plan, there are no apparent barriers to communication. The patient is given the opportunity to ask questions and have them answered to his/her satisfaction Coding Level of Care Code Est Pt Level 3 (93603) Diagnoses Acute pain of right knee M25.561 Chronicity: acute Laterality: right
[2023-07-29 13:04] VITALS: BP 126/72; PULSE 95; TEMP 36.2; O2SAT 99; BMI 25.2
== END 2023-07-29 13:17 | disposition home or self-care (01) ==
PROVIDERS: PCP Internal Medicine; Visit Provider Physician Assistant
DX: M25.561 Pain in right knee (principal)
CPT/HCPCS: 99213

== ENCOUNTER 2023-07-29 13:15 | Outpatient (REF) | payer MEDICARE, MEDICAID, SELFPAY ==
--- NOTE | ~2023-07-29 | XR_ITS ---
EXAMINATION: XR KNEE, RIGHT CLINICAL INFORMATION: Right knee pain COMPARISON: None available. TECHNIQUE: Four views of the right knee. FINDINGS: No fracture or joint effusion. Alignment is anatomic. Joint spaces are maintained. No abnormal soft tissue calcification. XR/XR knee RT 4V IMPRESSION: Normal right knee.
== END 2023-07-29 13:16 | disposition home or self-care (01) ==
LOC: HO.HMGCX 13:15
PROVIDERS: PCP Internal Medicine; Visit Provider Physician Assistant
DX: M25.561 Pain in right knee (principal)
CPT/HCPCS: 73564

== ENCOUNTER 2023-09-16 13:19 | Outpatient (AMB) | payer MEDICARE, MEDICAID, SELFPAY ==
--- NOTE | 2023-09-16 13:23 | A.OFFPC_ITS ---
Vital Signs 09/16/23 13:24 Height 5 ft 4 in Weight 150 lb 2 oz BMI 25.8 BP 130/68 Blood Pressure Location Lt brachial Position Sitting Pulse 80 Pulse Source Pulse Oximeter Pulse Oximetry (%) 97 Oxygen Delivery Method Room Air Intake Visit Reasons: 6mth f/u Intake Note: Patient is here to follow up on Hyperglycemia, Hyperlipidemia. Radio Time Buyer Required: No Fish Protector: Not Required per policy Accompanied by: Self / Same As Patient Allergies codeine Allergy (Verified 09/16/23 14:05) Unknown Medication List - Last Reconciled 09/16/23 by Dean Colmenares MD alendronate 70 mg PO QWEEK cholecalciferol (vitamin D3) 25 mcg PO DAILY docusate sodium (Colace) 100 mg PO BID PRN loratadine 10 mg PO DAILY lorazepam 1 mg PO DAILY metformin ER 750 mg PO DAILY simvastatin 10 mg PO DAILY Tobacco use date assessed: 09/16/23 Fall risk assessment: No Falls in past year Last assessed Fall Risk: 09/16/23 Dental Screening Dental Screen Date: 09/16/23 Did you have a dental visit in the last 12 months?: Yes Did you have a dental problem in the last 6 months where you did not have access to dental care?: No Was dental information given to patient?: Patient has dentist HPI 6mth f/u HPI Details 73-year-old female presents to the offic e to discuss her chronic medical conditions. Since last office visit patient has had episodes of low back pain and allergy exacerbations. Symptoms have resolved on their own. Occasionally has had headaches which have subsided 2. She did see a neurosurgeon for evaluation of meningioma. No further action is planned. Able to function and do all activities of daily living. Compliant with medications. Not checking her blood sugars at home. [facility] Medical History (Updated 09/16/23 @ 14:07 by Dean Colmenares MD) Knee pain Diabetes Constipation Meningioma Hyperlipidemia Anxiety Surgical History History of root canal procedure Encounter for orthopedic aftercare following scoliosis surgery History of ureter stent History of vein stripping History of partial hysterectomy History of colonoscopy Status post breast reduction Family History Father No problems noted. Mother Stroke Cancer Brother S/P triple vessel bypass Blind Brother Afib Daughter Bipolar 1 disorder Mental problem Family/Other FH: mental illness Social History Housing: House Alcohol intake: current Alcohol intake frequency: holidays/special occasions only Patient Tobacco Use Status: Never used Tobacco e-Cigarette/Vaping Use: Never Used Second Hand Smoke Exposure: Yes service: No Current occupational status: retired Cognitive needs: No Hearing needs: No Vision needs: No Questionnaire Thrive Questionnaire Date Thrive assessed: 03/11/23 LYSSA-7 AMB Questionnaire LYSSA-7 Date LYSSA - 7 assessed: 03/11/23 Source: Developed by Drs. Candelario Chun, Erika Galeas, Handy Hogan and colleagues, with an educational amisha from [employer]. Physical exam (Primary Care) Vital Signs: Last Vital Signs Pulse 80 09/16/23 13:24 BP 130/68 09/16/23 13:24 Pulse Ox 97 09/16/23 13:24 Oxygen Delivery Method Room Air 09/16/23 13:24 Care Plan Goal for BP management: Blood pressure is in range. BMI result Body Mass Index 25.8 Tobacco/Smoking Status: Tobacco use Status Tobacco use date assessed 09/16/23 09/16/23 13:35 Patient Tobacco Use Status Never used Tobacco 09/16/23 13:35 e-Cigarette/Vaping Use Never Used 09/16/23 13:35 Thrive Assessment: Date of Thrive Assessment Date Thrive assessed 03/11/23 09/16/23 13:35 Advance Care Planning discussion: Exists, not on file Date of discussion: 09/16/23 Forms completed: Health Care Proxy Time spent: 1-15 minutes, not on file Actual minutes spent: 5 Const General: cooperative and healthy appearing Nutritional Appearance: well nourished Orientation/consciousness: patient oriented x3 Limitations: no limitations HENMT Head: Yes normal to inspection Eyes General: appearance normal, both eyes and all related structures Neck Neck: Yes normal visual inspection Chest Chest palpation & inspection: normal palpation of entire chest wall Resp Effort & Inspection: normal respiratory effort Neuro General: patient oriented x3 Results AMB Hemoglobin A1c AMB Hemoglobin A1c 6.8 % Last Edit by BETO Valencia on 09/16/23 13:38 Results Reviewed Results Reviewed: Laboratory Last Values Hgb A1c (Clinic) 6.8 % (4.0-6.0) H 09/16/23 13:22 Assessment and Plan Assessment & Plan (1) Meningioma: Comment: discovered on CT of head Code(s): D32.9 - Benign neoplasm of meninges, unspecified Plan: Reassurance. MRI from September was also reviewed. (2) Diabetes: Code(s): E11.9 - Type 2 diabetes mellitus without complications Plan: A1c is slowly creeping up. Patient was advised to continue metformin at same dosage. Orders: Orders AMB Hemoglobin A1c Today E78.5 - Hyperlipidemia, unspecified Coding Level of Care Code Est Pt Level 4 (24820) Diagnoses Meningioma D32.9 Diabetes E11.9 Additional Codes Vital Signs *Quality* - Advance Care Planning discussion: Exists, not on file ([id number]) Vital Signs *Quality* - Time spent: 1-15 minutes, not on file ([id number])
[2023-09-16 13:24] VITALS: BP 130/68; PULSE 80; O2SAT 97; BMI 25.8
== END 2023-09-16 13:57 | disposition home or self-care (01) ==
PROVIDERS: Visit Provider Internal Medicine
DX: D32.9 Benign neoplasm of meninges, unspecified (principal); E11.9 Type 2 diabetes mellitus without complications; E78.5 Hyperlipidemia, unspecified; Z00.00 Encounter for general adult medical examination without abnormal findings
CPT/HCPCS: 1123F; 1124F; 83036; 99214

== ENCOUNTER 2023-12-01 09:53 | Outpatient (AMB) | payer MEDICARE, MEDICAID, SELFPAY ==
--- NOTE | 2023-12-01 10:16 | A.OFFPC_ITS ---
Vital Signs 12/01/23 10:17 Height 5 ft 4 in Weight 148 lb 6 oz BMI 25.5 BP 120/82 Blood Pressure Location Lt brachial Position Sitting Pulse 69 Pulse Source Pulse Oximeter Pulse Oximetry (%) 100 Oxygen Delivery Method Room Air Intake Visit Reasons: flank pain on lower left Intake Note: Patient is here today for lower left flank pain. Uti came back negative during urgent care on 11/27/23. Supervisor Filtration Required: No Delivery Person: Present Accompanied by: Daughter Allergies codeine Allergy (Verified 12/01/23 11:04) Unknown Medication List - Last Reconciled 12/01/23 by Dean Colmenares MD alendronate 70 mg PO QWEEK cholecalciferol (vitamin D3) 25 mcg PO DAILY docusate sodium (Colace) 100 mg PO BID PRN loratadine 10 mg PO DAILY lorazepam 1 mg PO DAILY metformin ER 750 mg PO DAILY simvastatin 10 mg PO DAILY Tobacco use date assessed: 12/01/23 Fall risk assessment: No Falls in past year Last assessed Fall Risk: 12/01/23 Dental Screening Dental Screen Date: 12/01/23 Did you have a dental visit in the last 12 months?: Yes Did you have a dental problem in the last 6 months where you did not have access to dental care?: No Was dental information given to patient?: Patient has dentist HPI flank pain on lower left HPI Details 73-year-old female presents to the [facility] for a sick visit. For the past week patient is complaining of pain in the left lower back. Occasionally radiates into the front. Pain symptoms are worsened on bending forward or sideways. No difficulty passing urine. She was seen at a walk-in clinic in [place] and a urine dip was done. Today they reported there was no infection. She was not given any medications on discharge at the walk-in clinic. [facility] Medical History (Updated 09/16/23 @ 14:07 by Dean Colmenares MD) Knee pain Diabetes Constipation Meningioma Hyperlipidemia Anxiety Surgical History (Updated 12/01/23 @ 10:24 by BETO Valencia) History of tooth extraction History of root canal procedure Encounter for orthopedic aftercare following scoliosis surgery History of ureter stent History of vein stripping History of partial hysterectomy History of colonoscopy Status post breast reduction Family History Father No problems noted. Mother Stroke Cancer Brother S/P triple vessel bypass Blind Brother Afib Daughter Bipolar 1 disorder Mental problem Family/Other FH: mental illness Social History Housing: House Alcohol intake: current Alcohol intake frequency: holidays/special occasions only Patient Tobacco Use Status: Never used Tobacco e-Cigarette/Vaping Use: Never Used Second Hand Smoke Exposure: Yes service: No Current occupational status: retired Cognitive needs: No Hearing needs: No Vision needs: No Questionnaire PHQ-9 Over the last 2 weeks, how often have you been bothered by any of the following problems? 1. Little interest or pleasure in doing things: not at all 2. Feeling down, depressed, or hopeless: not at all 3. Trouble falling or staying asleep, or sleeping too much: not at all 4. Feeling tired or having little energy: not at all 5. Poor appetite or overeating: not at all 6. Feeling bad about yourself - or that you are a failure or have let yourself or your family down: not at all 7. Trouble concentrating on things, such as reading the newspaper or watching television: not at all 8. Moving or speaking so slowly that other people could have noticed. Or the opposite - being so fidgety or restless that you have been moving around a lot more than usual: not at all 9. Thoughts that you would be better off or of hurting yourself in some way: not at all Total score: 0 Depression Screening Interpretation: Negative Depression Screening Done: Yes Source: Developed by Drs. Candelario Chun, Erika Galeas, Handy Hogan and colleagues, with an educational amisha from [employer]. Thrive Questionnaire Date Thrive assessed: 12/01/23 I am a: Patient What is your living situation today?: I have a steady place to live Within the past 12 months, did the food you bought not last and you didn't have the money to get more?: Never true Within the past 12 months, did you worry whether your food would run out before you got money to buy more?: Never true Do you have trouble paying for medicines?: No Do you have trouble getting transportation to medical appointments?: No Do you have trouble paying your heating and electricity bill?: No Do you have trouble taking care of your child, family member or friend?: No Do you have trouble with day-to-day activities such as bathing, preparing meals, shopping, managing finances, etc.?: No Are you currently unemployed and looking for a job?: No Are you interested in more education?: No Currently or been in a relationship where the following occur: no concerns reported THRIVE Score: 0 AUDIT C Alcohol Use Questionnaire (AUDIT-C) 1. How often do you have a drink containing alcohol?: Monthly or less 2. How many drinks containing alcohol do you have on a typical day when you are drinking?: 1 or 2 Total Score: 1 LYSSA-7 AMB Questionnaire LYSSA-7 Date LYSSA - 7 assessed: 12/01/23 Feeling nervous, anxious, or on edge: 0 = Not at all Not being able to stop or control worryin = Not at all Worrying too much about different things: 0 = Not at all Trouble relaxin = Not at all Being so restless that it is hard to sit still: 0 = Not at all Becoming easily annoyed or irritable: 0 = Not at all Feeling afraid as if something awful might happen: 0 = Not at all Total LYSSA-7 score (0-4 normal; 5-9 mild; 10-14 moderate; 15-21 severe): 0 Source: Developed by Drs. Candelario Chun, Erika Galeas, Handy Hogan and colleagues, with an educational amisha from [employer]. Physical exam (Primary Care) Vital Signs: Last Vital Signs Pulse 69 12/01/23 10:17 BP 120/82 12/01/23 10:17 Pulse Ox 100 12/01/23 10:17 Oxygen Delivery Method Room Air 12/01/23 10:17 BMI result Body Mass Index 25.5 Tobacco/Smoking Status: Tobacco use Status Tobacco use date assessed 12/01/23 12/01/23 10:26 Patient Tobacco Use Status Never used Tobacco 12/01/23 10:26 e-Cigarette/Vaping Use Never Used 12/01/23 10:26 PHQ-9: PHQ-9 Score PHQ-9: Total score 0 12/01/23 11:16 Depression Screening Interpretation: Negative Thrive Assessment: Date of Thrive Assessment Date Thrive assessed 12/01/23 12/01/23 10:26 Currently or been in a relationship where the following occur: no concerns reported Const General: cooperative and healthy appearing Nutritional Appearance: well nourished Orientation/consciousness: patient oriented x3 Limitations: no limitations [facility] Head: Yes normal to inspection Eyes General: appearance normal, both eyes and all related structures Neck Neck: Yes normal visual inspection Chest Chest palpation & inspection: normal palpation of entire chest wall Resp Effort & Inspection: normal respiratory effort General: Yes no CVA tenderness Back/Spine/Pelvis Other: Back: No spinal tenderness or paraspinal spasm. Back: no CVA tenderness Neuro General: patient oriented x3 Results AMB Urinalysis, Automated UA Leukoctes 1 Lety/uL Last Edit by Oliverio Acuña [facility] on 12/01/23 11:17 UA Nitrite Negative Last Edit by Oliverio Acuña [facility] on 12/01/23 11:17 UA Urobilinogen 0 mg/dL Last Edit by Oliverio Acuña [facility] on 12/01/23 11:17 UA Protein 0 mg/dL Last Edit by Oliverio Acuña [facility] on 12/01/23 11:17 UA pH 7.5 Last Edit by Oliverio Acuña [facility] on 12/01/23 11:17 UA Blood 0 Rocky/uL Last Edit by Oliverio Acuña [facility] on 12/01/23 11:17 UA Specific [place] 1.015 Last Edit by Oliverio Acuña [facility] on 12/01/23 11: 17 UA Ketone Negative Last Edit by Oliverio Acuña [facility] on 12/01/23 11:17 UA Bilirubin 0 mg/dL Last Edit by Oliverio Acuña [facility] on 12/01/23 11:17 UA Glucose 0 mg/dL Last Edit by Oliverio Acuña [facility] on 12/01/23 11:17 Results Reviewed Results Reviewed: Laboratory Last Values Urine pH (Auto) 7.5 12/01/23 11:15 Specific [place] (Auto) 1.015 12/01/23 11:15 Urine Protein (Auto) 0 mg/dL 12/01/23 11:15 Glucose (UA)(Auto) 0 mg/dL 12/01/23 11:15 Urine Ketones (Auto) Negative 12/01/23 11:15 Urine Blood (Auto) 0 Rocky/uL 12/01/23 11:15 Urine Nitrite (Auto) Negative 12/01/23 11:15 Urine Bilirubin (Auto) 0 mg/dL 12/01/23 11:15 Urine Urobilinogen (Auto) 0 mg/dL 12/01/23 11:15 Leukocyte Esterase (Auto) 1 Lety/uL 12/01/23 11:15 Assessment and Plan Assessment & Plan (1) Lower thoracic back pain: Code(s): M54.6 - Pain in thoracic spine Plan: Muscle relaxant and nonsteroidals called in. Apply heating pad. If if symptoms do not improve, physical therapy will be considered. Urinalysis revd. Orders: Orders AMB Urinalysis Automated 12/01/23 Z13.9 - Encounter for screening, unspecified Medications: New meloxicam 15 mg PO DAILY 14 tabs 0RF cyclobenzaprine 10 mg PO BEDTIME 14 tabs 0RF Coding Level of Care Code Est Pt Level 3 (90126) Diagnoses Lower thoracic back pain M54.6
[2023-12-01 10:17] VITALS: BP 120/82; PULSE 69; O2SAT 100; BMI 25.5
== END 2023-12-01 11:26 | disposition home or self-care (01) ==
PROVIDERS: PCP Internal Medicine; Visit Provider Internal Medicine
DX: M54.6 Pain in thoracic spine (principal)
CPT/HCPCS: 81003; 99213

== ENCOUNTER 2024-03-16 13:18 | Outpatient (AMB) | payer MEDICARE, MEDICAID, SELFPAY ==
--- NOTE | 2024-03-16 13:24 | A.OFFPC_ITS ---
Vital Signs 03/16/24 13:26 Height 5 ft 4 in Weight 148 lb 8 oz BMI 25.5 BP 120/78 Blood Pressure Location Lt brachial Position Sitting Pulse 88 Pulse Source Pulse Oximeter Pulse Oximetry (%) 99 Oxygen Delivery Method Room Air Intake Visit Reasons: Annual Exam Intake Note: Patient is here today for a physical. Photo Engraver Required: No Special Procedures Technologist: Not Required per policy Accompanied by: Self / Same As Patient Allergies codeine Allergy (Verified 03/17/24 14:23) Unknown Medication List - Last Reconciled 03/17/24 by Dean Colmenares MD alendronate 70 mg PO QWEEK cholecalciferol (vitamin D3) 25 mcg PO DAILY cyclobenzaprine 10 mg PO BEDTIME docusate sodium (Colace) 100 mg PO BID PRN loratadine 10 mg PO DAILY lorazepam 1 mg PO DAILY metformin ER 750 mg PO DAILY simvastatin 10 mg PO DAILY Tobacco use date assessed: 03/16/24 Fall risk assessment: No Falls in past year Last assessed Fall Risk: 03/16/24 Dental Screening Dental Screen Date: 12/01/23 HPI Annual Exam HPI Details 73-year-old female presents to the offic e requesting an annual exam. In addition, patient is reporting that her lower back pain is getting aggravated. Patient had back surgery for lumbar pain. For a while the symptoms had resolved but it has started recurring in the past month. Worse on bending forward. No change in urinary habits. In addition patient is also wanting to discuss about the continued use of alendronate. She is exercising regularly. She has no teeth work planned in the immediate future. Patient sees a drag down who has been ordering her annual mammograms. She has a follow-up appointment with her in the coming week. [facility] Medical History (Updated 03/17/24 @ 14:27 by Dean Colmenares MD) Age-related osteoporosis without current pathological fracture Knee pain Diabetes Constipation Meningioma Hyperlipidemia Anxiety Surgical History History of tooth extraction History of root canal procedure Encounter for orthopedic aftercare following scoliosis surgery History of ureter stent History of vein stripping History of partial hysterectomy History of colonoscopy Status post breast reduction Family History Father No problems noted. Mother Stroke Cancer Brother S/P triple vessel bypass Blind Brother Afib Daughter Bipolar 1 disorder Mental problem Family/Other FH: mental illness Social History Housing: House Alcohol intake: current Alcohol intake frequency: holidays/special occasions only Patient Tobacco Use Status: Never used Tobacco e-Cigarette/Vaping Use: Never Used Second Hand Smoke Exposure: Yes service: No Current occupational status: retired Cognitive needs: No Hearing needs: No Vision needs: No Questionnaire Thrive Questionnaire Date Thrive assessed: 12/01/23 LYSSA-7 AMB Questionnaire LYSSA-7 Date LYSSA - 7 assessed: 12/01/23 Source: Developed by Drs. Candelario Chun, Erika Galeas, Handy Hogan and colleagues, with an educational amisha from [employer]. Physical exam (Primary Care) Vital Signs: Last Vital Signs Pulse 88 03/16/24 13:26 BP 120/78 03/16/24 13:26 Pulse Ox 99 03/16/24 13:26 Oxygen Delivery Method Room Air 03/16/24 13:26 Care Plan Goal for BP management: Blood pressure is stable. Continue current medications. BMI result Body Mass Index 25.5 Tobacco/Smoking Status: Tobacco use Status Tobacco use date assessed 03/16/24 03/16/24 13:35 Patient Tobacco Use Status Never used Tobacco 03/16/24 13:26 e-Cigarette/Vaping Use Never Used 03/16/24 13:26 Thrive Assessment: Date of Thrive Assessment Date Thrive assessed 12/01/23 03/16/24 13:26 Const General: cooperative and healthy appearing Nutritional Appearance: well nourished Orientation/consciousness: patient oriented x3 Limitations: no limitations HENMT Head: Yes normal to inspection Eyes General: appearance normal, both eyes and all related structures Neck Neck: Yes normal visual inspection Chest Chest palpation & inspection: normal palpation of entire chest wall Resp Effort & Inspection: normal respiratory effort Neuro General: patient oriented x3 Results AMB Hemoglobin A1c AMB Hemoglobin A1c 6.4 % Last Edit by BETO Valencia on 03/16/24 13:44 Results Reviewed Results Reviewed: Laboratory Last Values Hgb A1c (Clinic) 6.4 % (4.0-6.0) H 03/16/24 13:23 Assessment and Plan Assessment & Plan (1) Diabetes: Code(s): E11.9 - Type 2 diabetes mellitus without complications Plan: A1c is in range. (2) Meningioma: Comment: discovered on CT of head Code(s): D32.9 - Benign neoplasm of meninges, unspecified Plan: Condition is stable. (3) Right low back pain: Code(s): M54.50 - Low back pain, unspecified Plan: Cyclobenzaprine and physical therapy added to the regimen. (4) Age-related osteoporosis without current pathological fracture: Code(s): M81.0 - Age-related osteoporosis without current pathological fracture Plan: DEXA scan has been added. Orders: Orders XR DEXA axial skeleton Today M81.0 - Age-related osteoporosis without current pathological fracture AMB Hemoglobin A1c 03/16/24 E11.9 - Type 2 diabetes mellitus without complications Medications: Refilled cholecalciferol (vitamin D3) 25 mcg PO DAILY 90 caps 1RF alendronate 70 mg PO QWEEK 12 tabs 1RF cyclobenzaprine 10 mg PO BEDTIME 14 tabs 0RF Coding Level of Care Code Est Pt Level 4 (96330) Est Pt Prev Care >65y(55337) Diagnoses Diabetes E11.9 Meningioma D32.9 Right low back pain M54.50 Age-related osteoporosis without current pathological fracture M81.0
[2024-03-16 13:26] VITALS: BP 120/78; PULSE 88; O2SAT 99; BMI 25.5
== END 2024-03-16 14:34 | disposition home or self-care (01) ==
PROVIDERS: Visit Provider Internal Medicine
DX: E11.9 Type 2 diabetes mellitus without complications (principal)
CPT/HCPCS: 83036; 99214; 99397

== ENCOUNTER 2024-04-18 10:25 | Outpatient (REF) | payer MEDICARE, SELFPAY ==
--- NOTE | ~2024-04-18 | MM_ITS ---
EXAMINATION: BONE DENSITOMETRY CLINICAL INDICATION: Age-related osteoporosis without current pathological fracture. COMPARISON: Baseline BD dated 03/03/2018. TECHNIQUE: Using a [employer] DXA System (software version: 13.1) manufactured by [employer], dual-energy x-ray absorptiometry was performed of the left hip and left forearm radius 33%. The images are of good technical quality. Summary results are attached. FINDINGS: LEFT FEMUR, NECK: Current: BMD 0.810 g/cm2, Z-score 0.1, T-score -1.6, osteopenia. Baseline: BMD 0.761 g/cm2. LEFT FEMUR, TOTAL: Current: BMD 0.944 g/cm2, Z-score 1.0, T-score -0.5, normal, 6.9% increase from baseline (<5% change is not significant). Baseline: BMD 0.883 g/cm2. LEFT FOREARM RADIUS 33%: BMD 0.558 g/cm2, Z-score -1.6, T-score -3.6, osteoporosis, 4.9% increase from baseline (<5% change is not significant). Baseline: BMD 0.532 g/cm2. IDENTIFIED RISK FACTORS: Early menopause, height loss, hysterectomy, osteoporosis, secondary osteoporosis. HISTORY OF FRACTURE: None listed. MEDICATIONS: Vitamin D, bisphosphonate. MM/XR DEXA axial skeleton IMPRESSION: 1. DIAGNOSIS: Osteoporosis based on the lowest T-score value of -3.6 in the forearm radius 33% applying World Health Organization criteria. 2. 10-YEAR FRACTURE RISK PREDICTION, FRAX: According to the guidelines, FRAX calculation should only be performed on patients in the osteopenia bone density category. Therefore, FRAX was not performed on this patient. 3. Treatment Recommendations: NOF guidelines recommend consideration for treatment in postmenopausal women and men age 50 and older presenting with the following: -A hip or vertebral (clinical or morphometric) fracture. -T-score less than or equal to -2.5 at the femoral neck or spine after appropriate evaluation to exclude secondary causes. -Low bone mass at the hip or spine and a 10-year fracture probability by FRAX of greater than or equal to 3% for hip fracture or greater than or equal to 20% for major osteoporotic fracture based on the [place] adapted WHO algorithm. 4. Other Recommendations: All treatment decisions require clinical judgment and consideration of individual patient factors, including patient preferences, comorbidities, previous drug use, risk factors not captured in the FRAX model (e.g. frailty, falls, vitamin D deficiency, increased bone turnover, interval significant decline in bone density) and possible under or overestimation of fracture risk by FRAX. Additional medical evaluation for secondary cause of low bone mineral density may be appropriate. FUTURE SCAN RECOMMENDATION: People with diagnosed cases of osteoporosis or at high risk for fracture should have regular bone mineral density tests. For patients eligible for Medicare, routine testing is allowed once every 2 years. The testing frequency can be increased to one year for patients who have rapidly progressing disease, those who are receiving or discontinuing medical therapy to restore bone mass, or have additional risk factors.
== END 2024-04-18 10:26 | disposition home or self-care (01) ==
LOC: HO.MAMMO 10:25
PROVIDERS: PCP Internal Medicine; Visit Provider Internal Medicine
DX: Z13.820 Encounter for screening for osteoporosis (principal); M81.0 Age-related osteoporosis without current pathological fracture; Z78.0 Asymptomatic menopausal state
CPT/HCPCS: 77080

== ENCOUNTER 2024-05-19 08:58 | Outpatient (REF) | payer MEDICARE, MEDICAID, SELFPAY ==
[2024-05-19 10:33] LABS: Appearance Urine Clear; Color Urine Yellow; Glucose Urine UA Negative (Negative); Leukocyte Esterase Urine Small (1+) (Negative); Nitrite Urine Negative (Negative); UMIC TRIGGER UA YES; Urine Blood Negative (Negative); Urine Ketones Negative (Negative); Urine Protein Negative (Neg-Trace)
[2024-05-19 10:43] LABS: Bacteria Urine None Seen (None Seen); Hyaline Casts Urine 0-2 /LPF (0-2); RBC Urine 0-2 /HPF (0-2); Squamous Epithelial Cell Urine 0-2 /HPF (0-2); WBC Urine 0-5 /HPF (0-5)
[2024-05-19 21:07] LABS: Alanine Aminotransferase 19 U/L (0-31); Albumin Level 4.1 g/dL (3.5-5.0); Alkaline Phosphatase 74 U/L (39-117); Anion Gap 13 (12-20); Aspartate Amino Transferase 17 U/L (5-31); Bilirubin Direct 0.2 mg/dL (0.0-0.5); Bilirubin Total 0.5 mg/dL (0.0-1.0); Blood Urea Nitrogen 16 mg/dL (9-16); Calcium 8.8 mg/dL (8.4-10.2); Carbon Dioxide 26 mmol/L (22-29); Chloride 109 mmol/L (96-108); Cholesterol 137 mg/dL (<200); Estimated Glomerular Filt Rate > 60; Glucose Random 98 mg/dL (60-115); HDL Cholesterol 38 mg/dL (>40); LDL Cholesterol Calculated 81 mg/dL (<100); Potassium 3.9 mmol/L (3.3-5.1); Sodium 144 mmol/L (135-145); Total Protein 6.7 g/dL (6.5-8.0); Triglycerides 91 mg/dL (<150)
[2024-05-19 21:23] LABS: Thyroid Stimulating Hormone 0.85 uIU/mL (0.32-4.0)
== END 2024-05-19 08:59 | disposition home or self-care (01) ==
LOC: HO.LAB 08:58
PROVIDERS: PCP Internal Medicine; Visit Provider Internal Medicine
DX: E11.9 Type 2 diabetes mellitus without complications (principal); D32.9 Benign neoplasm of meninges, unspecified; M81.0 Age-related osteoporosis without current pathological fracture
CPT/HCPCS: 36415; 80048; 80061; 80076; 81001; 84443

== ENCOUNTER 2024-06-07 15:22 | Outpatient (AMB) | payer MEDICARE, MEDICAID, SELFPAY ==
[2024-06-07 15:29] VITALS: BP 124/86; PULSE 76; BMI 24.7
--- NOTE | 2024-06-07 15:29 | A.OFFPC_ITS ---
Vital Signs 06/07/24 15:29 Height 5 ft 4 in Weight 144 lb 0.8 oz BMI 24.7 BP 124/86 Blood Pressure Location Lt brachial Position Sitting Pulse 76 Pulse Source Pulse Oximeter Oxygen Delivery Method Room Air Intake Visit Reasons: Requesting Referral Intake Note: Pt c/o of pain in right breast Rn Clinician Required: No Allergies codeine Allergy (Verified 06/13/24 10:46) Unknown Medication List - Last Reconciled 06/13/24 by Dean Colmenares MD alendronate 70 mg PO QWEEK cholecalciferol (vitamin D3) 25 mcg PO DAILY cyclobenzaprine 10 mg PO BEDTIME docusate sodium (Colace) 100 mg PO BID PRN loratadine 10 mg PO DAILY lorazepam 1 mg PO DAILY metformin ER 750 mg PO DAILY simvastatin 10 mg PO DAILY Tobacco use date assessed: 03/16/24 Fall risk assessment: No Falls in past year Last assessed Fall Risk: 06/07/24 Dental Screening Dental Screen Date: 12/01/23 HPI Requesting Referral HPI Details 74-year-old female presents to the [facility] for a sick visit. Patient is complaining of pain in the right breast area. She has history of sc oliosis for which she has had surgery in 2016. Subsequently she continues to have pain in the right side. Unable to lie down on the right side. No discharge from the right breast. No lump palpable. Pain is more in the right upper back rather than in the breast area. Compliant with medications [facility] Medical History Age-related osteoporosis without current pathological fracture Knee pain Diabetes Constipation Meningioma Hyperlipidemia Anxiety Surgical History History of tooth extraction History of root canal procedure Encounter for orthopedic aftercare following scoliosis surgery History of ureter stent History of vein stripping History of partial hysterectomy History of colonoscopy Status post breast reduction Family History Father No problems noted. Mother Stroke Cancer Brother S/P triple vessel bypass Blind Brother Afib Daughter Bipolar 1 disorder Mental problem Family/Other FH: mental illness Social History Housing: House Alcohol intake: current Alcohol intake frequency: holidays/special occasions only Patient Tobacco Use Status: Never used Tobacco e-Cigarette/Vaping Use: Never Used Second Hand Smoke Exposure: Yes service: No Current occupational status: retired Cognitive needs: No Hearing needs: No Vision needs: No Questionnaire Thrive Questionnaire Date Thrive assessed: 12/01/23 AUDIT C Alcohol Use Questionnaire (AUDIT-C) 1. How often do you have a drink containing alcohol?: Monthly or less 2. How many drinks containing alcohol do you have on a typical day when you are drinking?: 1 or 2 Total Score: 1 LYSSA-7 AMB Questionnaire LYSSA-7 Date LYSSA - 7 assessed: 12/01/23 Source: Developed by Drs. Candelario Chun, Erika Galeas, Handy Hogan and colleagues, with an educational amisha from [employer]. Physical exam (Primary Care) Vital Signs: Last Vital Signs Pulse 76 06/07/24 15:29 BP 124/86 06/07/24 15:29 Oxygen Delivery Method Room Air 06/07/24 15:29 Care Plan Goal for BP management: Blood pressure is in range. BMI result Body Mass Index 24.7 Tobacco/Smoking Status: Tobacco use Status Tobacco use date assessed 03/16/24 06/07/24 15:33 Patient Tobacco Use Status Never used Tobacco 06/07/24 15:33 e-Cigarette/Vaping Use Never Used 06/07/24 15:33 Thrive Assessment: Date of Thrive Assessment Date Thrive assessed 12/01/23 06/07/24 15:33 Const General: cooperative and healthy appearing Nutritional Appearance: well nourished Orientation/consciousness: patient oriented x3 Limitations: no limitations HENMT Head: Yes normal to inspection Eyes General: appearance normal, both eyes and all related structures Neck Neck: Yes normal visual inspection Chest Other: Breast examination done with a female medical records receptionist in the room. No nipple discharge no lump palpable in the left or right breast no axillary lymph nodes palpable Chest palpation & inspection: normal palpation of entire chest wall Resp Effort & Inspection: normal respiratory effort Neuro General: patient oriented x3 Results AMB Hemoglobin A1c AMB Hemoglobin A1c 6.2 % Last Edit by BETO Loja on 06/07/24 15:46 Results Reviewed Results Reviewed: Laboratory Last Values Hgb A1c (Clinic) 6.2 % (4.0-6.0) H 06/07/24 11:20 Assessment and Plan Assessment & Plan (1) Breast pain: Code(s): N64.4 - Mastodynia Plan: Symptoms are more of upper back pain rather than breast pain. Patient is up-to-date on her mammogram. Mammogram report is being awaited. Chest x-ray has been ordered. (2) Diabetes: Code(s): E11.9 - Type 2 diabetes mellitus without complications Plan: A1c is in range. Continue metformin at same dosage. Orders: Orders AMB Hemoglobin A1c 06/07/24 E11.9 - Type 2 diabetes mellitus without complications Coding Level of Care Code Est Pt Level 4 (05229) Complex EM visit Add On G2211 Diagnoses Breast pain N64.4 Diabetes E11.9
== END 2024-06-07 16:12 | disposition home or self-care (01) ==
PROVIDERS: PCP Internal Medicine; Visit Provider Internal Medicine
DX: E11.9 Type 2 diabetes mellitus without complications (principal)
CPT/HCPCS: 83036; 99214; G2211

== ENCOUNTER 2024-06-14 09:22 | Outpatient (REF) | payer MEDICARE, MEDICAID, SELFPAY ==
--- NOTE | ~2024-06-14 | XR_ITS ---
EXAMINATION: XR CHEST CLINICAL INFORMATION: Cough COMPARISON: None available. TECHNIQUE: 2 views of the chest were obtained. FINDINGS: There is marked left thoracolumbar scoliosis. With transpedicular rods and screws involving the lower thoracic and lumbar spine. No significant abnormality is noted involving the heart, lungs, mediastinum, or soft tissues. There is mild biapical pleural thickening, more prominent on the right. Mild central peribronchial thickening is noted. XR/XR chest 2V IMPRESSION: No acute cardiopulmonary disease. Electronically signed by: Karma Jauregui MD 06/29/2024 09:49 AM EDT
== END 2024-06-14 09:23 | disposition home or self-care (01) ==
LOC: HO.XRAY 09:22
PROVIDERS: PCP Internal Medicine; Visit Provider Internal Medicine
DX: R05.9 Cough, unspecified (principal)
CPT/HCPCS: 71046

== ENCOUNTER 2024-07-12 14:04 | Outpatient (AMB) | payer MEDICARE, MEDICAID, SELFPAY ==
--- NOTE | 2024-07-12 14:25 | A.OFFPC_ITS ---
Vital Signs 07/12/24 14:27 Height 5 ft 4 in Weight 143 lb 8 oz BMI 24.6 BP 132/74 Blood Pressure Location Lt brachial Position Sitting Pulse 84 Pulse Source Pulse Oximeter Pulse Oximetry (%) 97 Oxygen Delivery Method Room Air Intake Visit Reasons: Right leg pain Intake Note: Patient is here to follow up on Right leg pain. Requesting for chest xray results from 06/14/24 Transit Proof Machine Operator Required: No Mixing Machine Attendant: Not Required per policy Accompanied by: Self / Same As Patient Allergies codeine Allergy (Verified 07/12/24 15:32) Unknown Medication List - Last Reconciled 07/12/24 by Dean Colmenares MD alendronate 70 mg PO QWEEK cholecalciferol (vitamin D3) 25 mcg PO DAILY cyclobenzaprine 10 mg PO BEDTIME docusate sodium (Colace) 100 mg PO BID PRN loratadine 10 mg PO DAILY lorazepam 1 mg PO DAILY metformin ER 750 mg PO DAILY simvastatin 10 mg PO DAILY Tobacco use date assessed: 07/12/24 Fall risk assessment: No Falls in past year Last assessed Fall Risk: 07/12/24 Dental Screening Dental Screen Date: 12/01/23 HPI Right leg pain HPI Details 74-year-old female presents to the offic e to discuss her chronic medical conditions. In the last office visit a chest x-ray was ordered, patient was reporting symptoms of pain on both of her sides in the chest. She was never informed of the results. Pain symptoms are subsiding. Patient also has a tooth that she needs extracted. Patient has been taking alendronate and the dentist would like to hold the medication for 3 months before he extract the tooth. Patient is also complaining of pain over the right leg. Intermittent pain. She believes it is due to the spider veins she has. She would like to see an interventional radiologist for treatment of the veins. [facility] Medical History Age-related osteoporosis without current pathological fracture Knee pain Diabetes Constipation Meningioma Hyperlipidemia Anxiety Surgical History History of tooth extraction History of root canal procedure Encounter for orthopedic aftercare following scoliosis surgery History of ureter stent History of vein stripping History of partial hysterectomy History of colonoscopy Status post breast reduction Family History Father No problems noted. Mother Stroke Cancer Brother S/P triple vessel bypass Blind Brother Afib Daughter Bipolar 1 disorder Mental problem Family/Other FH: mental illness Social History Housing: House Alcohol intake: current Alcohol intake frequency: holidays/special occasions only Patient Tobacco Use Status: Never used Tobacco e-Cigarette/Vaping Use: Never Used Second Hand Smoke Exposure: Yes service: No Current occupational status: retired Cognitive needs: No Hearing needs: No Vision needs: No Questionnaire Thrive Questionnaire Date Thrive assessed: 12/01/23 LYSSA-7 AMB Questionnaire LYSSA-7 Date LYSSA - 7 assessed: 12/01/23 Source: Developed by Drs. Candelario Chun, Erika Galeas, Handy Hogan and colleagues, with an educational amisha from [employer]. Physical exam (Primary Care) Vital Signs: Last Vital Signs Pulse 84 07/12/24 14:27 BP 132/74 07/12/24 14:27 Pulse Ox 97 07/12/24 14:27 Oxygen Delivery Method Room Air 07/12/24 14:27 BMI result Body Mass Index 24.6 Tobacco/Smoking Status: Tobacco use Status Tobacco use date assessed 07/12/24 07/12/24 14:45 Patient Tobacco Use Status Never used Tobacco 07/12/24 14:45 e-Cigarette/Vaping Use Never Used 07/12/24 14:45 Thrive Assessment: Date of Thrive Assessment Date Thrive assessed 12/01/23 07/12/24 14:45 Const General: cooperative and healthy appearing Nutritional Appearance: well nourished Orientation/consciousness: patient oriented x3 Limitations: no limitations HENMT Head: Yes normal to inspection Eyes General: appearance normal, both eyes and all related structures Neck Neck: Yes normal visual inspection Chest Chest palpation & inspection: normal palpation of entire chest wall Resp Effort & Inspection: normal respiratory effort Neuro General: patient oriented x3 Extrem Other: Right lower extremity: Hyperpigmented areas over the ankle. Assessment and Plan Assessment & Plan (1) Age-related osteoporosis without current pathological fracture: Code(s): M81.0 - Age-related osteoporosis without current pathological fracture Plan: Patient can have her teeth extracted. I agree with the city bailiff who would like her to stop the alendronate for 3 months. (2) Lumbar scoliosis: Code(s): M41.9 - Scoliosis, unspecified Plan: She is going to contact her surgeon in [place] who did the operation for scoliosis. Meanwhile I will arrange for physical therapy. (3) Phlebitis: Code(s): I80.9 - Phlebitis and thrombophlebitis of unspecified site Plan: A referral for the interventional radiologist who specializes in veins will be made. Medications: Refilled lorazepam 1 mg PO DAILY 30 tabs 0RF F41.9 - Anxiety disorder, unspecified Coding Level of Care Code Est Pt Level 4 (15732) Complex EM visit Add On G2211 Diagnoses Age-related osteoporosis without current pathological fracture M81.0 Lumbar scoliosis M41.9 Phlebitis I80.9
[2024-07-12 14:27] VITALS: BP 132/74; PULSE 84; O2SAT 97; BMI 24.6
== END 2024-07-12 15:40 | disposition home or self-care (01) ==
PROVIDERS: PCP Internal Medicine; Visit Provider Internal Medicine
DX: M81.0 Age-related osteoporosis without current pathological fracture (principal); M41.9 Scoliosis, unspecified; I80.9 Phlebitis and thrombophlebitis of unspecified site
CPT/HCPCS: 99214; G2211

== ENCOUNTER 2024-08-23 08:21 | Outpatient (REF) | payer MEDICARE, MEDICAID, SELFPAY ==
--- NOTE | ~2024-08-23 | US_ITS ---
EXAMINATION: US LOWER EXTREMITY VENOUS (REFLUX EXAM), BILATERAL CLINICAL INDICATION: Venous insufficiency, leg pain, swelling COMPARISON: Left lower extremity venous Doppler dated 08/20/2008 TECHNIQUE: Color flow triplex imaging and compression Doppler was performed to evaluate both the deep and the superficial systems bilaterally. To evaluate the superficial system, the examination was performed in the upright position. Color-flow Doppler ultrasound and compression ultrasound were utilized. In addition, maneuvers were utilized to demonstrate reflux. FINDINGS: 1. DEEP VENOUS ULTRASOUND OF THE RIGHT LOWER EXTREMITY: Common Femoral Vein: Compressible, normal respiratory variation and augmented flow. Femoral Vein: Compressible, normal color flow and augmentation. Popliteal Vein: Compressible, normal augmentation. Deep Reflux: There is no evidence of reflux in the deep system in either the common femoral vein, superficial femoral or the popliteal vein. There is no evidence of a Roy's cyst. 2. SUPERFICIAL ULTRASOUND WITH DOPPLER OF RIGHT LOWER EXTREMITY: GREAT SAPHENOUS VEIN: Saphenofemoral Junction: 0.7 cm; Reflux: 0 ms Proximal Thigh: 0.4 cm; Reflux: 0 ms The right great saphenous vein is not visualized from the level of the mid thigh to the mid calf, which may represent prior ablation. Ankle: 0.2 cm; Reflux: 0 ms DUPLICATED LATERAL GREAT SAPHENOUS VEIN: Saphenofemoral Junction: 0.3 cm; Reflux: 0 ms Mid Thigh: Not visualized SMALL SAPHENOUS VEIN: Saphenopopliteal Junction: 0.2 cm; Reflux: 0 ms Proximal: 0.3 cm; Reflux: 0 ms Distal: 0.3 cm; Reflux: 0 ms PERFORATORS: Location: Proximal calf Size: 0.3; Reflux: 0 ms Location: At knee Size: 0.2; Reflux: 0 ms VARICOSITIES: Location: None imaged Size: NA; Reflux: 0 ms 3. DEEP VENOUS ULTRASOUND OF THE LEFT LOWER EXTREMITY: Common Femoral Vein: Compressible, normal respiratory variation and augmented flow. Femoral Vein: Compressible, normal color flow and augmentation. Popliteal Vein: Compressible, normal augmentation. Deep Reflux: There is no evidence of reflux in the deep system in either the common femoral vein, superficial femoral or the popliteal vein. There is no evidence of a Roy's cyst. 4. SUPERFICIAL ULTRASOUND WITH DOPPLER OF LEFT LOWER EXTREMITY: GREAT SAPHENOUS VEIN: Saphenofemoral Junction: 0.6 cm; Reflux: 0 ms Proximal Thigh: 0.2 cm; Reflux: 0 ms The left great saphenous vein is not visualized from the level of the mid thigh to the knee. Below Knee: 0.3 cm; Reflux: 0 ms Mid Calf: 0.2 cm; Reflux: 0 ms Ankle: 0.2 cm; Reflux: 0 ms SMALL SAPHENOUS VEIN: Saphenopopliteal Junction: 0.3 cm; Reflux: 0 ms Proximal: 0.2 cm; Reflux: 0 ms Distal: 0.2 cm; Reflux: 0 ms PERFORATORS: Location: Proximal calf Size: 0.3; Reflux: 0 ms VARICOSITIES: Location: None Imaged Size: NA; Reflux: 0 ms US/US venous duplex LE BI IMPRESSION: 1. No evidence of deep venous thrombosis or reflux. 2. No evidence of superficial venous insufficiency in the bilateral lower extremities. 3. The right great saphenous vein is not visualized from the level of the mid thigh to the mid calf and the left great saphenous vein is not visualized from the level of the mid thigh to the knee. Findings may represent prior ablation. Recommend clinical correlation. Electronically signed by: Rachele Sexton MD 08/31/2024 09:21 AM EDT RP
== END 2024-08-23 08:22 | disposition home or self-care (01) ==
LOC: HO.US 08:21
PROVIDERS: PCP Internal Medicine; Visit Provider Student in an Organized Health Care Education/Training Program
DX: I87.2 Venous insufficiency (chronic) (peripheral) (principal)
CPT/HCPCS: 93970

== ENCOUNTER 2025-01-26 13:49 | Outpatient (AMB) | payer MEDICARE, MEDICAID, SELFPAY ==
--- NOTE | 2025-01-26 13:53 | MHC.OFFWIV ---
Intake Vital Signs 01/26/25 13:54 Height 5 ft 4 in Weight 146 lb BMI 25.1 BP 130/82 Blood Pressure Location Lt brachial Position Sitting Pulse 91 Pulse Source Pulse Oximeter Pulse Oximetry (%) 95 Oxygen Delivery Method Room Air Intake Visit Reasons: EP cat attack, rt leg scratch/puncture Patient Tobacco Use Status: Never used Tobacco Allergies codeine Allergy (Verified 01/26/25 13:55) Unknown Medication List - Last Reconciled 01/26/25 by Bryant Holcomb MD alendronate 70 mg PO QWEEK cholecalciferol (vitamin D3) 25 mcg PO DAILY cyclobenzaprine 10 mg PO BEDTIME docusate sodium (Colace) 100 mg PO BID PRN loratadine 10 mg PO DAILY lorazepam 1 mg PO DAILY metformin ER 750 mg PO DAILY simvastatin 10 mg PO DAILY Do you need a note to return to daycare/school/sports/work: No HPI EP cat attack, rt leg scratch/puncture HPI Details Patient is a 74-year-old female came in today to be evaluated for cat bite Patient was trying to feed a neighbor's cat When she turned around the cat attacked her right leg from back That happened 2 days ago Patient called the virtual office assistant and she said that cat is up-to-date with vaccine Examination wounds are not infected She has about 6 small puncture wounds posterior right lower leg Without any skin erythema I have sent 3 days of Augmentin for prophylaxis. [facility] Medical History Age-related osteoporosis without current pathological fracture Knee pain Diabetes Constipation Meningioma Hyperlipidemia Anxiety Surgical History History of tooth extraction History of root canal procedure Encounter for orthopedic aftercare following scoliosis surgery History of ureter stent History of vein stripping History of partial hysterectomy History of colonoscopy Status post breast reduction Family History Father No problems noted. Mother Stroke Cancer Brother S/P triple vessel bypass Blind Brother Afib Daughter Bipolar 1 disorder Mental problem Family/Other FH: mental illness Social History Housing: House Alcohol intake: current Alcohol intake frequency: holidays/special occasions only Patient Tobacco Use Status: Never used Tobacco e-Cigarette/Vaping Use: Never Used Second Hand Smoke Exposure: Yes service: No Current occupational status: retired Cognitive needs: No Hearing needs: No Vision needs: No Review of Systems Const All systems reviewed & are unremarkable except as noted in HPI and below Physical Exam Vital Signs: Last Vital Signs Pulse 91 01/26/25 13:54 BP 130/82 01/26/25 13:54 Pulse Ox 95 01/26/25 13:54 Oxygen Delivery Method Room Air 01/26/25 13:54 BMI result Body Mass Index 25.1 Const General: no acute distress Orientation/consciousness: patient oriented x3 Eyes General: appearance normal, both eyes and all related structures Resp Effort & Inspection: normal respiratory effort and able to speak in complete sentences Neuro General: patient oriented x3 Extrem Upper/lower leg/hip images: 1. Six small puncture wounds without signs of infection right leg Psych Mental Status: mental status grossly normal Assessment & Plan Assessment & Plan (1) Cat bite of right lower leg: Code(s): S81.851A - Open bite, right lower leg, initial encounter; W55.01XA - Bitten by cat, initial encounter Qualifiers: Encounter type: initial encounter Qualified Code(s): S81.851A - Open bite, right lower leg, initial encounter; W55.01XA - Bitten by cat, initial encounter Plan Patient is a 74-year-old female came in today to be evaluated for cat bite Patient was trying to feed a neighbor's cat When she turned around the cat attacked her right leg from back That happened 2 days ago Patient called the virtual office assistant and she said that cat is up-to-date with vaccine Examination wounds are not infected She has about 6 small puncture wounds posterior right lower leg Without any skin erythema I have sent 3 days of Augmentin for prophylaxis. Medications: New amoxicillin-pot clavulanate 500-125 mg 1 tab PO Q12H 6 tabs 0RF 3 days Coding Level of Care Code Est Pt Level 3 (75559) Diagnoses Cat bite of right lower leg, initial encounter S81.851A; W55.01XA Encounter type: initial encounter
[2025-01-26 13:54] VITALS: BP 130/82; PULSE 91; O2SAT 95; BMI 25.1
== END 2025-01-26 14:24 | disposition home or self-care (01) ==
PROVIDERS: PCP Internal Medicine; Visit Provider Internal Medicine
DX: S81.851A Open bite, right lower leg, initial encounter (principal); W55.01XA Bitten by cat, initial encounter

== ENCOUNTER → 2025-01-26 13:49 | Outpatient (BNVA) | payer MEDICARE, MEDICAID, SELFPAY | PROVIDERS: PCP Internal Medicine; Visit Provider Internal Medicine | DX: S81.851A Open bite, right lower leg, initial encounter (principal); W55.01XA Bitten by cat, initial encounter | CPT/HCPCS: 99212 ==

== ENCOUNTER 2025-01-29 17:44 | Emergency (ER) | payer MEDICARE, MEDICAID, SELFPAY ==
[2025-01-29 18:17] VITALS: BP 187/84; PULSE 85; RESP 18; TEMP 36.5; O2SAT 97; BMI 24.7
--- NOTE | 2025-01-29 19:23 | ED.GENADULT ---
HPI - General Adult General Chief complaint: Animal Bite Stated complaint: bit by cat behind leg Time Seen by Provider: 01/29/25 19:51 Source: patient Mode of arrival: ambulatory Limitations: no limitations History of Present Illness ED Provider: Toro Lvey HPI narrative: 74 yold female with pmh of diabetes presents to the ED for cat bite on right posterior leg that happened last . patient was by PCP for rabies vaccine. Patient state cat's ownwer refused to confirm if the cat is uptdoate with rabies vaccine. patient states no fever or chills. Related Data Previous Rx's ?Medication ?Instructions ?Recorded docusate sodium 100 mg capsule 100 mg PO BID PRN constipation #10 03/11/23 (Colace) caps cyclobenzaprine 10 mg tablet 10 mg PO BEDTIME #14 tabs 03/17/24 loratadine 10 mg tablet 10 mg PO DAILY #90 tabs 08/07/24 metformin 750 mg tablet,extended 750 mg PO DAILY #90 tabs 10/19/24 release 24 hr simvastatin 10 mg tablet 10 mg PO DAILY #90 tabs 10/19/24 lorazepam 1 mg tablet 1 mg PO DAILY #30 tabs 10/20/24 cholecalciferol (vitamin D3) 25 25 mcg PO DAILY #90 caps 10/23/24 mcg (1,000 unit) capsule alendronate 70 mg tablet 70 mg PO QWEEK #12 tabs 12/22/24 amoxicillin 500 mg-potassium 1 tab PO Q12H 3 days #6 tabs 01/26/25 clavulanate 125 mg tablet amoxicillin 875 mg-potassium 1 tab PO Q12H 10 days #20 tabs 01/29/25 clavulanate 125 mg tablet Allergies Allergy/AdvReac Type Severity Reaction Status Date / Time codeine Allergy Unknown Verified 01/29/25 18:18 Review of Systems Review of Systems: right posterior thight cat bite Yes all other systems are reviewed and are negative PMFSH Past Medical History Medical History (Updated 01/30/25 @ 09:02 by VILLA Berry) Cat bite of right lower leg Age-related osteoporosis without current pathological fracture Knee pain Diabetes Constipation Meningioma Hyperlipidemia Anxiety Surgical History History of tooth extraction History of root canal procedure Encounter for orthopedic aftercare following scoliosis surgery History of ureter stent History of vein stripping History of partial hysterectomy History of colonoscopy Status post breast reduction Family History Family History Father No problems noted. Mother Stroke Cancer Brother S/P triple vessel bypass Blind Brother Afib Daughter Bipolar 1 disorder Mental problem Family/Other FH: mental illness Social History Social History Housing: House Alcohol intake: current Alcohol intake frequency: does not drink Patient Tobacco Use Status: Never used Tobacco Smoked in Last 30 Days: No e-Cigarette/Vaping Use: Never Used Second Hand Smoke Exposure: Yes Use of substances other than those prescribed or required for medical reasons: No Advance Directives: No Advance Directives Information Provided: No service: No Current occupational status: retired Cognitive needs: No Hearing needs: No Vision needs: No Physical Exam ED Vital Signs: Vital Signs - 24 hr 01/29/25 18:17 01/29/25 20:26 01/29/25 21:42 Temperature 97.7 F 98.2 F 98.2 F Pulse Rate 85 78 78 Respiratory Rate 18 14 14 Blood Pressure 187/84 H 173/80 H 173/80 H Pulse Oximetry 97 98 98 Oxygen Delivery Method Room Air Room Air Room Air BMI result Body Mass Index 24.7 Const General: cooperative, healthy appearing, comfortable, no acute distress, well developed, alert, awake and Physically active Orientation/consciousness: patient oriented x3 HENMT Head: Yes normal to inspection, Yes No palpable skull fracture present, Yes normocephalic, Yes atraumatic and No abrasion Eyes General: appearance normal, both eyes and all related structures Neck Neck: Yes normal visual inspection, Yes full ROM, Yes no lymphadenopathy, Yes no meningeal signs, Yes trachea midline, Yes supple, No anterior neck swelling and No tender Chest Chest palpation & inspection: normal inspection of the chest and normal palpation of entire chest wall Resp Effort & Inspection: normal respiratory effort and able to speak in complete sentences Cardio Jugular venous distension: no JVD Heart sounds: S1 normal heart sound present and S2 normal heart sound present GI Inspection: Yes normal to inspection Palpation (GI): Soft to palpation, not firm, nontender, no guarding and not rigid General: Yes no CVA tenderness Back/Spine/Pelvis Back: no CVA tenderness and No back tenderness Skin General skin exam: no rashes or lesions noted, elasticity normal and turgor normal Neuro General: patient oriented x3, gait normal, tone normal, moves all extremities, Normal light touch and pain sensation, no meningeal signs, no focal motor deficits and CN's II-XI intact bilaterally Extrem General: Yes normal to inspection, Yes full ROM and Yes capillary refill normal Ankle/foot/toe images: 1. small healing puncture bite with no redness, pus discharge, or foul odor. rest of extremity is normal. motor, neuro, vascular exam is intact. 2. small healing puncture bite with no redness, pus discharge, or foul odor. rest of extremity is normal. motor, neuro, vascular exam is intact. Psych Appearance: grossly normal, well kempt and not disheveled Course Course Course Narrative: RME: 74 yold female presents to the ED for cat bite on right leg that occurred last . Patient is concerned because the import customs clearing agent when not confirmed if the CAT is up-to-date with rabies vaccine. Patient has small healing puncture bites of right calf without any redness or bruising. Patient recommend importance of oral antibiotic and also rabies vaccine. Patient was sent by primary care for rabies vaccine. Medications Administered Discontinued Medications Generic Name Dose Route Start Last Admin Trade Name Freq PRN Reason Stop Dose Admin Diphtheria/Tetanus/Acell Pertussis 0.5 ml 01/29/25 20:06 01/29/25 21:09 Diphth,Pertus(Acell),Tet Adult 0.5 Ml Syringe IM 01/29/25 20:07 0.5 ml .ONCE ONE Administration Rabies Immune Globulin 1,346 unit 01/29/25 19:48 01/29/25 21:10 Rabies Immune Globulin/Pf 900 Unit/3 Ml Vial 20 unit/kg (1346 unit) 01/29/25 19:49 Not Given IM ONCE ONE Rabies Vaccine 1 ml 01/29/25 19:48 01/29/25 21:10 Rabies Vaccine (Pcec)/Pf 1 Ml Vial IM 01/29/25 19:49 1 ml .ONCE ONE Administration Medical Decision Making Medical Decision Making MDM Narrative: 74-year-old female presents to ED for evaluation after being bit by cat onto her right posterior leg last . Patient was sent by primary care for rabies shot. Patient states cats import customs clearing agent for not confirmed and patient is up-to-date with rabies vaccinations. Patient herself denies any fever, chill, redness or pus discharge. Patient has healing cat bites from last week. Patient informed recommending receiving rabies vaccine and oral antibiotics. Patient explained worrsiome signs and informed to return to the ED if he has them. FOllow up rabies schedule appointments made by ED board of education secretary. Differential Diagnosis Differential Diagnoses: The differential diagnosis associated with the presentation includes Admission/Observation Consideration of admission/observation: Escalation of care including admission/observation considered Prescription Management I considered prescription management with: Antibiotic Discharge Plan Discharge Clinical Impression: Cat bite Patient Disposition: Home, Self-Care Instructions: Animal Bite (ED) Additional Instructions: recommend follow-up with infusion center for 3 more scheduled rabies vaccine injections. Return to the ED immediately for any increased swelling, redness, pus discharge, foul odor, fever, chills, or any other concerning symptoms. Discharge Instructions: Rabies Follow up with the [facility] Infusion Center: Upon discharge for the ED today, you will be contacted by the Infusion Center to schedule your follow up Rabies vaccines. You will need a total of 3 more injections. If for some reason you do not receive a call, please call the Infusion Center directly at [phone]. Follow up with your primary care provider after completion of the vaccine to have a titer drawn to ensure the vaccine effectiveness. Prescriptions: New amoxicillin-pot clavulanate 875-125 mg tablet 1 tab PO Q12H 10 Days Qty: 20 0RF No Action loratadine 10 mg tablet 10 mg PO DAILY Qty: 90 1RF metformin 750 mg tablet extended release 24 hr 750 mg PO DAILY Qty: 90 1RF simvastatin 10 mg tablet 10 mg PO DAILY Qty: 90 1RF lorazepam 1 mg tablet 1 mg PO DAILY Qty: 30 0RF cholecalciferol (vitamin D3) 25 mcg (1,000 unit) capsule 25 mcg PO DAILY Qty: 90 1RF alendronate 70 mg tablet 70 mg PO QWEEK Qty: 12 1RF docusate sodium [Colace] 100 mg capsule 100 mg PO BID PRN (Reason: constipation) Qty: 10 0RF cyclobenzaprine 10 mg tablet 10 mg PO BEDTIME Qty: 14 0RF amoxicillin-pot clavulanate 500-125 mg tablet 1 tab PO Q12H 3 Days Qty: 6 0RF Stand Alone Forms: Work/School Release Interventions: ED Discharge Assessment Last Done: 01/29/25 21:42 Discharge Date/Time: 01/29/25 21:42 Print Language: [place]
[2025-01-29 20:26] VITALS: BP 173/80; PULSE 78; RESP 14; TEMP 36.8; O2SAT 98
[2025-01-29] MEDS: Diphth,Pertus(ACell),Tet Adult 0.5 ML SYRINGE IM (21:09)
[2025-01-29] MEDS: Rabies Vaccine (PCEC)/PF 1 ML VIAL IM (21:10)
[2025-01-29 21:42] VITALS: BP 173/80; PULSE 78; RESP 14; TEMP 36.8; O2SAT 98
== END 2025-01-29 21:42 | disposition home or self-care (01) ==
PROVIDERS: Emergency Provider Emergency Medicine
DX: S81.851A Open bite, right lower leg, initial encounter (principal); W55.01XA Bitten by cat, initial encounter; Y93.9 Activity, unspecified; Y92.9 Unspecified place or not applicable; Y99.9 Unspecified external cause status; Z23 Encounter for immunization; Z20.3 Contact with and (suspected) exposure to rabies
CPT/HCPCS: 90375; 90471; 90675; 90715; 96372; 99284

== ENCOUNTER 2025-02-12 10:00 | Outpatient (RCR) | payer MEDICARE, MEDICAID, SELFPAY ==
[2025-02-01 09:55] VITALS: BP 166/78; PULSE 77; RESP 20; TEMP 36.7; O2SAT 97
[2025-02-01] MEDS: Rabies Vaccine (PCEC)/PF 1 ML VIAL IM (09:58)
[2025-02-05 10:01] VITALS: BP 161/80; PULSE 79; RESP 16; TEMP 36.1; O2SAT 98
[2025-02-05] MEDS: Rabies Vaccine (PCEC)/PF 1 ML VIAL IM (10:07)
[2025-02-12 10:00] VITALS: BP 167/78; PULSE 78; RESP 16; TEMP 36.4; O2SAT 99
[2025-02-12] MEDS: Rabies Vaccine (PCEC)/PF 1 ML VIAL IM (10:04)
== END 2025-02-12 10:10 | disposition home or self-care (01) ==
LOC: HO.INF 10:00
PROVIDERS: Visit Provider Physician Assistant Medical
DX: Z20.3 Contact with and (suspected) exposure to rabies (principal); S81.851D Open bite, right lower leg, subsequent encounter; W55.01XD Bitten by cat, subsequent encounter
CPT/HCPCS: 90471; 90675

== ENCOUNTER 2025-02-15 15:17 | Outpatient (AMB) | payer MEDICARE, MEDICAID, SELFPAY ==
--- NOTE | 2025-02-15 16:09 | A.OFFPC_ITS ---
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 Required: No Aesthetician: Not Required per policy Accompanied by: Self / Same As Patient Allergies codeine Allergy (Verified 02/15/25 16:10) Unknown Tobacco use date assessed: 02/15/25 Fall risk assessment: No Falls in past year Last assessed Fall Risk: 02/15/25 Dental Screening Dental Screen Date: 02/15/25 Did you have a dental visit in the last 12 months?: Yes Did you have a dental problem in the last 6 months where you did not have access to dental care?: No Was dental information given to patient?: Patient has dentist [facility] Medical History (Updated 01/30/25 @ 09:02 by VILLA Berry) Cat bite of right lower leg Age-related osteoporosis without current pathological fracture Knee pain Diabetes Constipation Meningioma Hyperlipidemia Anxiety Surgical History History of tooth extraction History of root canal procedure Encounter for orthopedic aftercare following scoliosis surgery History of ureter stent History of vein stripping History of partial hysterectomy History of colonoscopy (~07/06/23) Status post breast reduction Family History Father No problems noted. Mother Stroke Cancer Brother S/P triple vessel bypass Blind Brother Afib Daughter Bipolar 1 disorder Mental problem Family/Other FH: mental illness Social History Housing: House Alcohol intake: current Alcohol intake frequency: does not drink Patient Tobacco Use Status: Never used Tobacco e-Cigarette/Vaping Use: Never Used Second Hand Smoke Exposure: Yes service: No Current occupational status: retired Cognitive needs: No Hearing needs: No Vision needs: No Questionnaire PHQ-9 Over the last 2 weeks, how often have you been bothered by any of the following problems? 1. Little interest or pleasure in doing things: not at all 2. Feeling down, depressed, or hopeless: not at all 3. Trouble falling or staying asleep, or sleeping too much: not at all 4. Feeling tired or having little energy: not at all 5. Poor appetite or overeating: not at all 6. Feeling bad about yourself - or that you are a failure or have let yourself or your family down: not at all 7. Trouble concentrating on things, such as reading the newspaper or watching television: not at all 8. Moving or speaking so slowly that other people could have noticed. Or the opposite - being so fidgety or restless that you have been moving around a lot more than usual: not at all 9. Thoughts that you would be better off or of hurting yourself in some way: not at all Total score: 0 Depression Screening Interpretation: Negative Depression Screening Done: Yes Source: Developed by Drs. Candelario Chun, Erika Galeas, Handy Hogan and colleagues, with an educational amisha from [employer]. Thrive Questionnaire Date Thrive assessed: 02/15/25 I am a: Patient What is your living situation today?: I have a steady place to live Within the past 12 months, did the food you bought not last and you didn't have the money to get more?: Never true Within the past 12 months, did you worry whether your food would run out before you got money to buy more?: Never true Do you have trouble paying for medicines?: No Do you have trouble getting transportation to medical appointments?: No Do you have trouble paying your heating and electricity bill?: No Do you have trouble taking care of your child, family member or friend?: No Do you have trouble with day-to-day activities such as bathing, preparing meals, shopping, managing finances, etc.?: No Are you currently unemployed and looking for a job?: No Are you interested in more education?: No Please select the resources that you would like help with: None Currently or been in a relationship where the following occur: No concerns reported THRIVE Score: 0 AUDIT C Alcohol Use Questionnaire (AUDIT-C) 1. How often do you have a drink containing alcohol?: Monthly or less 2. How many drinks containing alcohol do you have on a typical day when you are drinking?: 1 or 2 Total Score: 1 LYSSA-7 AMB Questionnaire LYSSA-7 Date LYSSA - 7 assessed: 02/15/25 Feeling nervous, anxious, or on edge: 3 = Nearly every day Not being able to stop or control worryin = More than half the days Worrying too much about different things: 2 = More than half the days Trouble relaxin = More than half the days Being so restless that it is hard to sit still: 2 = More than half the days Becoming easily annoyed or irritable: 1 = Several days Feeling afraid as if something awful might happen: 2 = More than half the days Total LYSSA-7 score (0-4 normal; 5-9 mild; 10-14 moderate; 15-21 severe): 14 Source: Developed by Drs. Candelario Chun, Erika Galeas, Handy Hogan and colleagues, with an educational amisha from [employer]. Physical exam (Primary Care) Vital Signs: Last Vital Signs Temp 97.1 F 02/15/25 16:10 Pulse 76 02/15/25 16:10 BP 122/78 02/15/25 16:10 Pulse Ox 97 02/15/25 16:10 Oxygen Delivery Method Room Air 02/15/25 16:10 BMI result Body Mass Index 24.6 Tobacco/Smoking Status: Tobacco use Status Tobacco use date assessed 02/15/25 02/15/25 16:15 Patient Tobacco Use Status Never used Tobacco 02/15/25 16:15 e-Cigarette/Vaping Use Never Used 02/15/25 16:15 PHQ-9: PHQ-9 Score PHQ-9: Total score 0 02/15/25 16:15 Depression Screening Interpretation: Negative Thrive Assessment: Date of Thrive Assessment Date Thrive assessed 02/15/25 02/15/25 16:15 Currently or been in a relationship where the following occur: No concerns reported Coding Level of Care Code Est Pt Level 4 (06559) Complex EM visit Add On G2211 Diagnoses Varicose veins of both lower extremities I83.93 Assessment & Plan Assessment & Plan (1) Varicose veins of both lower extremities: Code(s): I83.93 - Asymptomatic varicose veins of bilateral lower extremities Plan: Hyperpigmentation on the skin is due to chronic venous stasis. Patient believes her discomfirt in the leg could be due to venous insufficiency. Unhappy with her current vascular surgeon and wants a second opinion. Explained that the condition is chronic and not amenable to any surgical procedures. Patient was given an appointment for a second opinion. Plan History of Present Illness The patient is a 74-year-old female presenting with a cat bite and vascular concerns. She describes an incident of being bitten on the right leg by a stray cat that frequented her property. Following the bite, she received rabies vaccinations from the emergency department. The cat bite wound has healed without complication. In addition, the patient has been experiencing vein-related discomfort, described as burning and painful. She reports a prior evaluation that did not reveal any issues, though symptoms persist. Consequently, she is considering seeing another specialist to further evaluate her vascular discomfort. Social History - Owns a cat and frequently encounters a neighboring stray cat. - Expresses concerns about outdoor interactions, particularly involving unowned cats. Review of Systems - Integumentary: Reports healed cat bite on the right leg. - Vascular: Reports burning sensation and pain around veins in the legs. Physical Exam General: Cooperative and healthy appearing Nutritional Appearance: Well nourished Orientation/consciousness: Patient oriented x3 Limitations: No limitations Head: Normal to inspection General: Appearance normal, both eyes and all related structures Neck: Normal visual inspection Chest: Normal palpation of entire chest wall Respiratory: Normal respiratory effort Neurology: Patient oriented x3 Results Plan The patient received rabies post-exposure prophylaxis following a cat bite, and the wound has healed. A referral to a vascular specialist, Dr. Rey, was made for further evaluation of her ongoing vein discomfort, suspecting peripheral venous insufficiency. Previous evaluations were normal, but symptoms persist, necessitating specialist input. Patient was informed and verbally consented to the use of an ambient scribe for clinic note documentation during this visit. Discussion Notes During our discussion, we thoroughly reviewed the patient's recent cat bite and her subsequent treatment, including rabies vaccinations. We also addressed her vascular concerns, with plans to refer her to Dr. Rey for specialized evaluation. The patient expressed interest in evaluating her vein-related symptoms further, following previous inconclusive assessments, and was assured Dr. Rey is a preferred specialist for such conditions. Patient Instructions - Follow up with Dr. Chau for vascular evaluation. - Monitor for any new symptoms related to the cat bite. - Seek medical attention if symptoms worsen or new concerns arise. Orders: Referrals Vascular Surgery Referral I83.93 - Asymptomatic varicose veins of bilateral lower extremities
[2025-02-15 16:10] VITALS: BP 122/78; PULSE 76; TEMP 36.2; O2SAT 97; BMI 24.6
--- OUTSIDE RECORDS SUMMARY | 2025-02-15 18:00 | XMS_ITS | Data Portability ---
Author Organization [place] [facility], [place] Address [address] [place] [phone] Care Team Providers Care Resource Engineer Name Role Phone MONTEZ WALL Referring Provider Assessment No assessment recorded. Plan of Treatment Reminders Order Date Submit Date Provider Last Modified By Organization Details Last Modified Time Details Appointments None recorded. Lab None recorded. Referral None recorded. Procedures None recorded. Surgeries None recorded. Imaging None recorded. Medication Orders nystatin 100,000 unit/mL oral suspension 2015 016 [email or web address] Not available 6 17:45:19 tramadol 50 mg tablet 2015 016 [email or web address] Not available 6 17:45:20 Tylenol 325 mg tablet 2015 016 [email or web address] Not available 6 17:45:20 OxyContin 10 mg tablet,jazmine h resistant,e xtended release 2015 016 [email or web address] Not available 3 16:56:39 Dilaudid 2 mg tablet 2015 016 [email or web address] Not available 6 17:45:20 Ativan 1 mg tablet 2015 016 [email or web address] Not available 6 17:45:19 simvastatin 10 mg tablet 2015 016 [email or web address] Not available 6 17:45:20 Senna Lax 8.6 mg tablet 2015 016 [email or web address] Not available 6 17:45:19 Colace 100 mg capsule 2015 016 [email or web address] Not available 6 17:45:20 Miralax 17 gram oral powder packet 2015 016 [email or web address] Not available 6 17:45:19 cholecalcif deysi (vitamin D3) 1,250 mcg (50,000 unit) capsule 2015 016 [email or web address] Not available 6 17:45:20 Bactrim DS 800 mg-160 mg tablet 2015 016 [email or web address] Not available 6 15:05:50 tramadol 50 mg tablet 2015 016 [email or web address] Not available 6 15:05:50 Tylenol 325 mg tablet 2015 016 [email or web address] Not available 6 15:05:50 OxyContin 10 mg tablet,jazimne h resistant,e xtended release 2015 016 [email or web address] Not available 3 16:56:39 Dilaudid 2 mg tablet 2015 016 [email or web address] Not available 6 15:05:50 Ativan 1 mg tablet 2015 016 [email or web address] e1 Not available 6 15:05:49 Senna Lax 8.6 mg tablet 2015 016 [email or web address] Not available 6 15:05:50 Colace 100 mg capsule 2015 016 [email or web address] Not available 6 15:05:50 Miralax 17 gram oral powder packet 2015 016 [email or web address] Not available 6 15:05:50 cholecalcif deysi (vitamin D3) 1,250 mcg (50,000 unit) capsule 2015 016 [email or web address] Not available 6 15:05:49 Bactrim DS 800 mg-160 mg tablet 2015 016 [email or web address] Not available 6 17:29:43 nystatin 100,000 unit/mL oral suspension 2015 016 [email or web address] Not available 6 17:29:43 tramadol 50 mg tablet 2015 016 [email or web address] Not available 6 16:57:47 Tylenol 325 mg tablet 2015 016 [email or web address] Not available 6 16:57:49 OxyContin 10 mg tablet,jazmine h resistant,e xtended release 2015 016 [email or web address] Not available 6 16:57:48 Dilaudid 2 mg tablet 2015 016 [email or web address] Not available 6 17:29:43 Ativan 1 mg tablet 2015 016 [email or web address] Not available 6 16:57:49 simvastatin 10 mg tablet 2015 016 [email or web address] Not available 6 16:57:48 Senna Lax 8.6 mg tablet 2015 016 [email or web address] Not available 6 16:57:48 Colace 100 mg capsule 2015 016 [email or web address] Not available 6 16:57:47 Miralax 17 gram oral powder packet 2015 016 [email or web address] Not available 6 16:57:48 cholecalcif deysi (vitamin D3) 1,250 mcg (50,000 unit) capsule 2015 016 [email or web address] Not available 6 16:57:48 Ativan 1 mg tablet 2015 016 [email or web address] Not available 6 17:05:40 simvastatin 10 mg tablet 2015 016 [email or web address] Not available 6 17:05:38 Bactrim DS 800 mg-160 mg tablet 05/31/ 2016 05/31/2 016 [email or web address] Not available 6 17:29:43 nystatin 100,000 unit/mL oral suspension 2015 016 [email or web address] Not available 6 17:29:43 OxyContin 10 mg tablet,jazmine h resistant,e xtended release 2015 016 [email or web address] Not available 3 16:56:38 Dilaudid 2 mg tablet 2015 016 [email or web address] e1 Not available 6 17:29:43 tramadol 50 mg tablet 2015 016 [email or web address] Not available 6 17:05:37 Tylenol 325 mg tablet 2015 016 [email or web address] Not available 6 17:05:38 cholecalcif deysi (vitamin D3) 1,250 mcg (50,000 unit) capsule 2015 016 [email or web address] Not available 6 17:05:39 Senna Lax 8.6 mg tablet 2015 016 [email or web address] Not available 6 17:05:37 Colace 100 mg capsule 2015 016 [email or web address] Not available 6 17:05:38 Miralax 17 gram oral powder packet 2015 016 [email or web address] Not available 6 17:05:38 Patient TargetsNo targets recorded. Patient Instructions Encounter Date Encounter Id Patient Instructions Last Modified By Organization Details Last Modified Time 04/03/2016 [id number] Discharge to [facility] with meds and services on 04/04/16 . Page 1 completed and this note will serve as a discharge summary which I will fax to PCP ? ? ?Cheryle with whom she has an appt on 04/16/16. 45 minutes spent discussing discharge with pt, reconciling med and completing paperwork [email or web address] Not available 04/03/2016 17:45:20 Reason for Referral None Reported. Problems Name Problem SNOMED Code Status Onset Date Resolution Date Notes Provider Name and Address Organization Details Recorded Time Spinal stenosis of lumbar region 95723295 Active Karma Gloria , [employer] [address] [place] [address], [phone], 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 15:05:49 Candidiasis of mouth 29741380 Active Karma Gloria , [employer] PRO[employer] [address] [place] [address], [phone], [facility] 15:00:47 Urinary tract infectious disease 12961044 Active Karma Gloria , [employer] PRO[employer] [address] [place] [address], [phone], [facility] 15:05:49 Anxiety 89950290 Active Karma Gloria , [employer] PRO[employer] [address] [place] [address], [phone], [facility] 15:05:49 Hyperlipidemia 71177668 Active Karma Gloria , [employer] PRO[employer] [address] [place] [address], [phone], [facility] 15:00:47 Gastroesophage al reflux disease 400723525 Active Karma Gloria , [employer] PRO[employer] [address] [place] [address], [phone], [facility] 15:00:47 Medullary sponge kidney without nephrocalcinos is 832887616 Active Karma Gloria , [employer] PRO[employer] [address] [place] [address], [phone], [facility] 15:00:47 Problem Notes None recorded. Medical Equipment None Reported. Allergies Allergen ID Allergen Name Allergen Category Reaction Reaction Severity Criticality Documentation Date Start Date Code Code System Note Provider Name and Address Organization Details Recorded Time 77916 codeine medicatio n Not available Not available Not available 03/31/2016 2670 RxNorm Karma Gloria , [employer] PRO[employer] [address] [place] [address], [phone], [facility] 6 16:50:58 Medications Name Sig Start Date Stop Date Status Note LastModified by Organization Details LastModified Time Miralax 17 gram oral powder packet Take 1 packet every day by oral route. 2015 active Not Available Not Available Not Avai lable nystatin 100,000 unit/mL oral suspension Take 5 mL 4 times a day by oral route for 7 days. 2015 active Not Available Not Available Not Avai lable Colace 100 mg capsule Take 1 capsule every day by oral route. 2015 active Not Available Not Available Not Avai lable Dilaudid 2 mg tablet Take 3 tablets 3 times a day by oral route. 2015 active Not Available Not Available Not Avai lable Senna Lax 8.6 mg tablet Take 2 tablets every day by oral route. 2015 active Not Available Not Available Not Avai lable Ativan 1 mg tablet Take 1 tablet every day by oral route as needed. 2015 active Not Available Not Available Not Avai lable simvastatin 10 mg tablet Take 1 tablet every day by oral route. 2015 active Not Available Not Available Not Avai lable tramadol 50 mg tablet Take 1 tablet every 6 hours by oral route as needed. 2015 active Not Available Not Available Not Avai lable Tylenol 325 mg tablet Take 3 tablets every 8 hours by oral route as needed. 2015 active Not Available Not Available Not Avai lable Bactrim DS 800 mg-160 mg tablet Take 1 tablet every 12 hours by oral route for 7 days. 2015 active Not Available Not Available Not Avai lable cholecalciferol (vitamin D3) 1,250 mcg (50,000 unit) capsule Take 1 capsule every week by oral route on Sundays. 2015 active Not Available Not Available Not Avai lable OxyContin 10 mg tablet,crush resistant,exten ded release Take 1 tablet(s ) EVERY 12 HOURS by oral route through 04/01/16 then daily x 5 days then stop 2015 active Not Available Not Available Not Avai lable Vitals Date Recorded Heart rate Systolic blood pressure Diastolic blood pressure Provider Name and Address Organization Details Last Updated DateTime 03/31/2016 88 /min 135 mm[Hg] 62 mm[Hg] Karmaclement Gloria NP [address] [place] [address], [phone], [facility] 03/31/2016 17:00:11 Date Recorded Heart rate Oxygen saturation Oxygen saturation in Arterial blood by Pulse oximetry Systolic blood pressure Diastolic blood pressure Provider Name and Address Organization Details Last Updated DateTime 6 103 /min 98 % 98 % 113 mm[Hg] 65 mm[Hg] Tato Alvarado MD [address] [place] [address], [phone], [facility] 6 16:43:47 Date Recorded Systolic blood pressure Diastolic blood pressure Provider Name and Address Organization Details Last Updated DateTime 04/02/2016 111 mm[Hg] 73 mm[Hg] Karma Gloria NP [address] [place] [address], [phone], [facility] 04/05/2016 15:03:01 Social History Question Answer Notes LastModified by Organizat ion Details LastModified Time Tobacco Smoking Status Never Smoker Not Available [facility] 09/03/2020 03:36:16 How Much Tobacco Do You Smoke? No [id number] Information not available 09/03/2020 Sex: Unknown Functional Status None recorded. Mental Status None recorded. Family History Nothing Reported. Medical History No medical history recorded. Gynecological HistoryNo gynecological history recorded. Obstetrics History GPAL:G 0 P 0 0 0 0 Past Encounters Encounter ID Performer Location Encounter Start Date Encounter Closed Date Diagnosis/Indication Diagnosis SNOMED-CT Code Diagnosis ICD10 Code Diagnosis Note [id number] Karma Glorai NP [facility] [address] [facility] [place] [place] [address] 03/31/2016 16:42:57 03/31/2016 17:08:42 Spinal stenosis of lumbar region 08091997 M48.06 Would like to be awoken during the night so will schedule dilaudid ATC Q3H Scoliosis deformity of spine 319285384 Q67.5 Has noticed that she is straighter than pre op Candidiasis of mouth 797 37452 B37.9 Urinary tr act infectious disease 77404646 N39.0 Continue for 7 days Anxiety 20790521 F41.9 Hyperlipidemia 39231144 E78.5 Gastroesop hageal reflux disease 243670409 K21.9 [id number] Tato Alvarado MD [address] [address] 04/01/2016 08:27:25 04/01/2016 16:59:55 Spinal stenosis of lumbar region 91039122 M48.06 Would like to be awoken during the night so will schedule dilaudid ATC Q3H Scoliosis deformity of spine 288968857 Q67.5 Has noticed that she is straighter than pre op Candidiasis of mouth 797 69472 B37.9 Tiny residual noted, but improving Urinary tr act infectious disease 05456954 N39.0 Continue for 7 days Anxiety 11457638 F41.9 Hyperlipidemia 06543652 E78.5 Gastroesop hageal reflux disease 874626409 K21.9 Medullary sponge kidney without nephrocalcinosis 037893144 Q61.5 Has hx of stones in past [id number] Karma Gloria NP [address] [phone] 04/02/2016 10:28:36 04/05/2016 15:07:14 Spinal stenosis of lumbar region 28613830 M48.06 Her function is very good and I have told her that i think it is not more than expected after her surgery Scoliosis deformity of spine 071914570 Q67.5 Has noticed that she is straighter than pre op Urinary tr act infectious disease 52663909 N39.0 Continue Bactrim for a total of7 days. I think it unlikely that her back pain is causing by the UTI Anxiety 40590826 F41.9 [id number] Karma Gloria NP [place] [address] [place] [address] 04/03/2016 08:58:45 04/03/2016 17:52:24 Spinal stenosis of lumbar region 67354677 M48.06 IS taking dilaudid 6 mg ATC Q3H. I have given her a script fro another #90 tabs. She also has #7 tramadol here and I will give her a script for another #30. She has enough oxycontin to complete the taper. Scoliosis deformity of spine 414270182 Q67.5 Has noticed that she is straighter than pre op Candidiasis of mouth 797 01758 B37.9 Tiny residual noted, but improving Urinary tr act infectious disease 78777233 N39.0 Last dose of bactrim today. Will repeat urine culture at her request Anxiety 04662801 F41.9 Has #14 ativan that she will take home with her. No further script given Hyperlipidemia 81005125 E78.5 Gastroesop hageal reflux disease 333251791 K21.9 Medullary sponge kidney without nephrocalcinosis 005284047 Q61.5 Has hx of stones in past Health Concerns Section Related Observation LastModified by Organization Detai ls LastModified Time None Recorded Concern Status LastModified by Organization Details LastModified Time None Recorded Advance Directives Directive None Recorded Payers Encounter Date Sequence Insurance Name Policy Number Policy Muñiz Covered Member ID Muñiz Member ID Guarantor Name 03/31/2016 1 [place] [facility] Mellissa Debo [id number] Mellissa Edmondson 04/01/2016 1 [place] [facility] Mellissa Debo [id number] Mellissa Edmondson 04/02/2016 1 [place] [facility] Mellissa Debo [id number] Mellissa Edmondson 04/03/2016 1 [place] [facility] Mellissa Debo [id number] Mellissa Edmondson 04/03/2016 2 [place] [facility] Mellissa Edmondson [id number] Mellissa Edmondson Notes Date Note Type Note Provider Name and Address Organization Details Recorded Time 03/31/2016 text/html This 65 yo woman was admitted to [facility] on 03/31/16 from [facility] where she underwent scoliosis reducing surgery performed by Dr. Wall on 03/24/16. this was a lumbar laminectomy with decompression, instrumented fusion and pelvic fixation. She also had a lower thoracic vertebroplasty. Postop she had trouble with pain control and was started on an oxycontin taper as well a Q3H dilaudid 6 mg. -hypoxia- to high 80%'s ad CXR revealed both R and Left small effusions . IVF were stopped. Currently o2 sats are in the high 90%'s. -fever- thought related to a UTI . on bactrim BID for 7 days -candidiasis- started on nystatin -palpitations- . Thought related to hypokalemia and she was repleted Karma Gloria, [employer] PROGRAMMER [address] [place] [address], [phone], [facility] 03/31/2016 17:07:59 04/01/2016 text/html This 65 yo woman was admitted to on 03/30 for STR after spine surgery for scoliosis done on 03/24 at [facility] by Dr. Wall. She had extensive procedures including L3 laminectomy, partial L@ and L4-5 and S1; transforaminal decompression, posterior instrumented spinal fusion T12 - S1 with bilateral pelvic fixation, fusion with local autograft, allograft and BMP, vertebroplasty of T10 and T11, and disc excision right L3-4 and L4-5. Her post-op course wasmarked by 2 units PRBC, 2 units of FFP and 300 cc cellsaver for an estimated 1500 cc blood loss. She also developed pleural effusions thought to be due to fluid overload. She had a BM on 03/28. Her other medical problems include: UTI, oral thrush, medullary spongue kidney, GERD, osteopenia, Vit D deficiency, HLD, scoliosis, and anxiety. Tato Alvarado MD [address] [place] [address], [phone], [facility] 04/01/2016 16:59:33 04/02/2016 text/html We discuss her p ain control at length as well as her urinary frequency/urgency. She feels that she is doing well in terms of walking and is taking the opportunity to walk long distances during the day using the walker. -wonders if the radiating back pain is related to her UTI which is currently being treated with bactrim Karma Gloria, JAMEY [address] [place] [address], [phone], [facility] 04/05/2016 15:06:13 OBGyn Episode No OBEpisode recorded.
== END 2025-02-15 16:43 | disposition home or self-care (01) ==
LOC: HO.HMCH 15:18
PROVIDERS: Visit Provider Internal Medicine
DX: I83.93 Asymptomatic varicose veins of bilateral lower extremities (principal)

== ENCOUNTER → 2025-02-15 15:17 | Outpatient (BNVA) | payer MEDICARE, MEDICAID, SELFPAY | PROVIDERS: Visit Provider Internal Medicine | DX: I83.93 Asymptomatic varicose veins of bilateral lower extremities (principal); T14.8XXD Other injury of unspecified body region, subsequent encounter; W55.01XD Bitten by cat, subsequent encounter | CPT/HCPCS: 96127; 99212 ==

== ENCOUNTER 2025-03-06 09:56 | Outpatient (AMB) | payer MEDICARE, MEDICAID, SELFPAY ==
[2025-03-06 10:00] VITALS: BP 124/82; BMI 24.6
--- NOTE | 2025-03-06 10:00 | A.OFFVIS_ITS ---
Vital Signs 03/06/25 10:00 Height 5 ft 5 in Weight 148 lb BMI 24.6 BP 124/82 Blood Pressure Location Rt brachial Position Sitting Intake Visit Reasons: Asymptomatic VV of B/L lower extremities Intake Note: Pt presents to the office today for a new patient visit for VV of B/L lower extremities. Pt states she has burning in her lower legs and discoloration in her ankles. Allergies codeine Allergy (Verified 03/06/25 10:01) Unknown HPI HPI Asymptomatic VV of B/L lower extremities: Details: Mellissa, a pleasant 74yo female patient, is presenting today on a referral for asymptomatic VV of bilateral lower extremities. She is looking for a second opinion due to ongoing concerns of SV around her ankles with some burning and numbness in her feet/lower legs. She [facility], a VIUS was done, and they discussed with her that they are unable to do any vein procedures due to a negative VIUS. She states she has a hx of vein procedures in bilateral legs years ago and she is having similar symptoms, so she believes she is having more vein problems. She states, particularly at the end of the day and at night, she gets burning and numbness in her feet and up her legs to mid-calf. She states she is also getting some swelling in her ankles, worse at the end of the day. She states that elevation helps a little, she has not tried compression socks. She is not a smoker. She is a diabetic, on Metformin. There is no hx of blood clots or clotting disorders. She denies any injuries. [facility] Medical History Cat bite of right lower leg Age-related osteoporosis without current pathological fracture Knee pain Diabetes Constipation Meningioma Hyperlipidemia Anxiety Surgical History History of tooth extraction History of root canal procedure Encounter for orthopedic aftercare following scoliosis surgery History of ureter stent History of vein stripping History of partial hysterectomy History of colonoscopy (~07/06/23) Status post breast reduction Family History Father No problems noted. Mother Stroke Cancer Brother S/P triple vessel bypass Blind Brother Afib Daughter Bipolar 1 disorder Mental problem Family/Other FH: mental illness Social History Housing: House Alcohol intake: current Alcohol intake frequency: does not drink Patient Tobacco Use Status: Never used Tobacco e-Cigarette/Vaping Use: Never Used Second Hand Smoke Exposure: Yes service: No Current occupational status: retired Cognitive needs: No Hearing needs: No Vision needs: No Review of Systems Const Reports as per HPI and Denies weakness ENT Reports Normal hearing present and Denies dizziness Card Reports as per HPI, Denies chest pain, Denies chest pain at rest, Denies chest pain with activity, Denies dyspnea and Denies dyspnea on exertion Resp Reports as per HPI, Denies cough, Denies dyspnea and Denies dyspnea on exertion GI Reports as per HPI, Denies abdominal pain, Denies nausea and Denies vomiting Musc Denies numbness Skin/Breast Reports as per HPI, Denies erythema and Denies wounds Neuro Reports Normal hearing present, Denies dizziness, Denies numbness, Denies Sensory deficit (Neuro) and Denies weakness Psych Reports no additional complaints Endo Reports no additional complaints Physical Exam Vital Signs: Last Vital Signs BP 124/82 03/06/25 10:00 BMI result Body Mass Index 24.6 Const General: healthy appearing and no acute distress Orientation/consciousness: patient oriented x3 HEENT Head: Yes normal to inspection Ears: hearing grossly normal bilaterally Mouth: Normal oral and palatal mucosa present Resp Effort & Inspection: normal respiratory effort and able to speak in complete sentences Auscultation: clear to auscultation bilaterally Cardio Jugular venous distension: no JVD Rate: regular rate Rhythm: regular rhythm Heart sounds: S1 normal heart sound present and S2 normal heart sound present Bruits: no abdominal aortic bruits, no carotid bruits, no femoral bruits and no renal bruits Peripheral pulses: Peripheral pulses 2+ throughout GI Inspection: Yes normal to inspection Palpation (GI): No Abdominal aortic bruit present Skin General skin exam: no rashes or lesions noted Wounds: no wounds Hair: normal Neuro General: patient oriented x3 Cranial nerves: Yes Normal hearing present Cognition (Neuro): normal cognition Gait exam (Neuro): Normal gait present Motor exam (neuro): 5/5 motor strength present throughout Sensory Exam: No Sensory deficit (Neuro) Extrem Other: Bilateral lower extremities: trace peripheral edema noted. Telangiectases noted in the medial aspect of both ankles, right slightly more than left. No varicosities or tortuosities noted. Palpable DP pulses. General: Yes normal to inspection, Yes full ROM, Yes capillary refill normal and Yes normal gait Results Reviewed Results Reviewed: Brief summary of venous insufficiency testing is as follows from 08/23/24: right great saphenous vein: negative, not seen from mid-thigh to ankle right small saphenous vein: negative right accessory vein: none present left great saphenous vein: negative, not seen from mid-thigh to at knee left small saphenous vein: negative left accessory vein: none present Please note there is no evidence of any venous aneurysms or significant tortuosity Assessment & Plan Assessment & Plan (1) Asymptomatic varicose veins of both lower extremities: Code(s): I83.93 - Asymptomatic varicose veins of bilateral lower extremities Category: Medical Plan: Mellissa is presenting today for concerns of ongoing bilateral lower extremity/ankle spider veins with burning and numbness. She has been [facility] this past Aug; they ordered a US, which was negative and they told her there was nothing they could do. She is looking for a second opinion because she is continuing to have burning and numbness in her ankles and she is worried that the spider veins are going to worsen and spread up her legs. I reviewed the US with her and told her that we could get another one, but likely it would not show any difference. We discussed that we do not do cosmetic removal of spider veins/varicose veins. I discussed with her that there could be other explanations for the burning and numbness, including some complications from diabetes. She states she takes her Metformin daily and feels fine but states she does eat a lot of sweets daily. I discussed that diabetes is sneaky and not usually symptomatic. I discussed with her that, from a vascular standpoint, she remains stable and there is no medical interventions we can do at this point. I did discuss that if she was that concerned about the spider veins, she could get them cosmetically taken care of, but we do not do that here. She did not, at this point, want to have the US performed again. I did discuss with her that, if things worsened/changed, she can reach back out to us and we could re-evaluate her with an US. Thank you for allowing us to participate in the patient's care. If there are any questions or concerns, plea se do not hesitate to reach out to us. Coding Level of Care Code New Pt Level 4 (45246) Diagnoses Asymptomatic varicose veins of both lower extremities I83.93
--- OUTSIDE RECORDS SUMMARY | 2025-03-06 11:16 | XMS_ITS | Data Portability ---
Author Organization [place] [facility], [facility] Address [address] [place] [id number] Care Team Providers Care Lockstitch Cup Setter Name Role Phone MONTEZ WALL Referring Provider [phone] Assessment No assessment recorded. Plan of Treatment [...] tablet,jazmine h resistant,e xtended release 2015 016 [email or web address] Not available 3 16:56:39 Dilaudid 2 mg [...] Not available 6 15:05:50 OxyContin 10 mg tablet,jazmine h resistant,e xtended release 2015 016 [id number] Not available 3 16:56:39 Dilaudid 2 mg [...] tablet,jazmine h resistant,e xtended release 2015 016 Not available 3 16:56:38 Dilaudid 2 mg [...] By Organization Details Last Modified Time 04/03/2016 [id number] Discharge to [facility] with meds and services on 04/04/16 . [...] Recorded Time Spinal stenosis of lumbar region 59031356 Active Karma Gloria , LINE CAMERA OPERATOR [address] [place] [address], [address], [facility] 15:05:49 Scoliosis deformity of spine 171594581 Active Karma Gloria , LINE CAMERA OPERATOR [facility] [place], [address], [facility] 15:05:49 Candidiasis of mouth 29601068 Active Karma Gloria , LINE CAMERA OPERATOR [address] [place] [address], [address], [facility] 15:00:47 Urinary tract infectious disease 85410179 Active Karma Gloria , LINE CAMERA OPERATOR [address] [place] [address], [address], [facility] 15:05:49 Anxiety 96969337 Active Karma Gloria , LINE CAMERA OPERATOR [address] [place] [address], [address], [facility] 15:05:49 Hyperlipidemia 75845277 Active Karma Gloria , LINE CAMERA OPERATOR [address] [place] [address], [address], [facility] 15:00:47 Gastroesophage al reflux disease 014115120 Active Karma Gloria , LINE CAMERA OPERATOR [address] [place] [address], [address], [facility] 15:00:47 Medullary sponge kidney without nephrocalcinos is 765491004 Active Karma Gloria , LINE CAMERA OPERATOR [address] [place] [address], [address], [facility] 15:00:47 Problem Notes None recorded. Medical Equipment None Reported. Allergies Allergen ID Allergen Name Allergen Category Reaction Reaction Severity Criticality Documentation Date Start Date Code Code System Note Provider Name and Address Organization Details Recorded Time 00904 codeine medicatio n Not available Not available Not available 03/31/2016 2670 RxNorm Karma Gloria , LINE CAMERA OPERATOR [address] [place] [address], [address], [facility] 6 16:50:58 Medications [...] 135 mm[Hg] 62 mm[Hg] Karmaclement Gloria NP [address] [place] [address], [address], [facility] 03/31/2016 17:00:11 Date Recorded Heart rate Oxygen saturation Oxygen saturation in Arterial blood by Pulse oximetry Systolic blood pressure Diastolic blood pressure Provider Name and Address Organization Details Last Updated DateTime 6 103 /min 98 % 98 % 113 mm[Hg] 65 mm[Hg] Tato Alvarado MD [address] [place] [address], [address], [facility] 6 16:43:47 Date Recorded Systolic blood pressure Diastolic blood pressure Provider Name and Address Organization Details Last Updated DateTime 04/02/2016 111 mm[Hg] 73 mm[Hg] Karma Gloria NP [address] [place] [address], [address], [facility] 04/05/2016 15:03:01 Social History Question Answer Notes LastModified by Organizat ion Details LastModified Time Tobacco Smoking Status Never Smoker Not Available [facility] 09/03/2020 03:36:16 How Much Tobacco Do You Smoke? No [id number] Information not available 09/03/2020 Sex: Unknown Functional Status None recorded. Mental Status None recorded. Family History Nothing Reported. Medical History No medical history recorded. Gynecological HistoryNo gynecological history recorded. Obstetrics History GPAL:G 0 P 0 0 0 0 Past Encounters Encounter ID Performer Location Encounter Start Date Encounter Closed Date Diagnosis/Indication Diagnosis SNOMED-CT Code Diagnosis ICD10 Code Diagnosis Note [id number] Karma Gloria NP [facility] [address] [facility] [place] [address] 03/31/2016 16:42:57 03/31/2016 17:08:42 Spinal stenosis of lumbar region 76875936 M48.06 Would like to be awoken during the night so will schedule dilaudid ATC Q3H Scoliosis deformity of spine 322755130 Q67.5 Has noticed that she is straighter than pre op Candidiasis of mouth 797 97195 B37.9 Urinary tr act infectious disease 52288589 N39.0 Continue for 7 days Anxiety 25957581 F41.9 Hyperlipidemia 05156241 E78.5 Gastroesop hageal reflux disease 702024681 K21.9 [id number] Tato Alvarado MD [address] [address] 04/01/2016 08:27:25 04/01/2016 16:59:55 Spinal stenosis of lumbar region 47806577 M48.06 Would like to be awoken during the night so will schedule dilaudid ATC Q3H Scoliosis deformity of spine 421802529 Q67.5 Has noticed that she is straighter than pre op Candidiasis of mouth 797 11412 B37.9 Tiny residual noted, but improving Urinary tr act infectious disease 93270487 N39.0 Continue for 7 days Anxiety 65964546 F41.9 Hyperlipidemia 70648057 E78.5 Gastroesop hageal reflux disease 302647298 K21.9 Medullary sponge kidney without nephrocalcinosis 950472719 Q61.5 Has hx of stones in past [id number] Karma Gloria NP [address] [address] 04/02/2016 10:28:36 04/05/2016 15:07:14 Spinal stenosis of lumbar region 68243756 M48.06 Her function is very good and I have told her that i think it is not more than expected after her surgery Scoliosis deformity of spine 889502797 Q67.5 Has noticed that she is straighter than pre op Urinary tr act infectious disease 98480451 N39.0 Continue Bactrim for a total of7 days. I think it unlikely that her back pain is causing by the UTI Anxiety 19375400 F41.9 [id number] Karma Gloria NP [address] [place] [address] 04/03/2016 08:58:45 04/03/2016 17:52:24 Spinal stenosis of lumbar region 72218580 M48.06 IS taking dilaudid 6 mg ATC Q3H. I have given her a script fro another #90 tabs. She also has #7 tramadol here and I will give her a script for another #30. She has enough oxycontin to complete the taper. Scoliosis deformity of spine 317775908 Q67.5 Has noticed that she is straighter than pre op Candidiasis of mouth 797 91888 B37.9 Tiny residual noted, but improving Urinary tr act infectious disease 67804486 N39.0 Last dose of bactrim today. Will repeat urine culture at her request Anxiety 74045229 F41.9 Has #14 ativan that she will take home with her. No further script given Hyperlipidemia 23546384 E78.5 Gastroesop hageal reflux disease 573477968 K21.9 Medullary sponge kidney without nephrocalcinosis 293654126 Q61.5 Has hx of stones in past Health Concerns Section Related Observation LastModified by Organization Detai ls LastModified Time None Recorded Concern Status LastModified by Organization Details LastModified Time None Recorded Advance Directives Directive None Recorded Payers Encounter Date Sequence Insurance Name Policy Number Policy Muñiz Covered Member ID Muñiz Member ID Guarantor Name 03/31/2016 1 [place] [facility] Mellissa Debo [id number] Mellissa Edmondson 04/01/2016 1 [place] [facility] Mellissa Debo [id number] Mellissa Edmondson 04/02/2016 1 [place] [facility] Mellissa Debo [id number] Mellissa Edmondson 04/03/2016 1 [place] [facility] Mellissa Debo [id number] Mellissa Edmondson 04/03/2016 2 [place] [facility] Mellissa Edmondson [id number] Mellissa Edmondson Notes Date Note Type Note Provider Name and Address Organization Details Recorded Time 03/31/2016 text/html This 65 yo woman was admitted to [facility] on 03/31/16 from [facility] where she underwent scoliosis reducing surgery performed [...] hypokalemia and she was repleted Karma Gloria, LINE CAMERA OPERATOR [address] [place] [address], [address], [facility] 03/31/2016 17:07:59 04/01/2016 text/html This 65 yo woman was admitted to on 03/30 for STR after spine surgery for scoliosis done on 03/24 at [facility] by Dr. Wall. She had extensive procedures [...] HLD, scoliosis, and anxiety. Tato Alvarado MD [address] [place] [address], [phone], [facility] 04/01/2016 16:59:33 04/02/2016 text/html We [...] being treated with bactrim Karma Gloria, JAMEY [address] [place] [address], [address], [facility] 04/05/2016 15:06:13 OBGyn Episode No OBEpisode recorded.
== END 2025-03-06 10:35 | disposition home or self-care (01) ==
LOC: HO.HVS 09:57
PROVIDERS: Visit Provider Physician Assistant Surgical
DX: I83.93 Asymptomatic varicose veins of bilateral lower extremities (principal)
CPT/HCPCS: 99204

== ENCOUNTER → 2025-03-06 09:56 | Outpatient (BNVA) | payer MEDICARE, MEDICAID, SELFPAY | PROVIDERS: Visit Provider Physician Assistant Surgical | DX: I83.93 Asymptomatic varicose veins of bilateral lower extremities (principal) | CPT/HCPCS: 99202 ==

== ENCOUNTER 2025-03-29 09:33 | Outpatient (AMB) | payer MEDICARE, MEDICAID, SELFPAY ==
--- NOTE | 2025-03-29 09:42 | MHC.PC.OV ---
Vital Signs 03/29/25 09:43 Height 5 ft 5 in Weight 148 lb 2 oz BMI 24.6 BP 130/60 Blood Pressure Location Lt brachial Position Sitting Pulse 88 Pulse Source Pulse Oximeter Temp 97.1 F Temp Source Temporal Artery Scan Pulse Oximetry (%) 98 Oxygen Delivery Method Room Air Intake Visit Reasons: Annual exam Intake Note: Patient is here today for a physical. Lugger Required: No Machine Ii Trimmer: Not Required per policy Accompanied by: Self / Same As Patient Allergies codeine Allergy (Verified 03/29/25 10:30) Unknown Tobacco use date assessed: 03/29/25 Fall risk assessment: No Falls in past year Last assessed Fall Risk: 03/29/25 Dental Screening Dental Screen Date: 02/15/25 [facility] Medical History Cat bite of right lower leg Age-related osteoporosis without current pathological fracture Knee pain Diabetes Constipation Meningioma Hyperlipidemia Anxiety Surgical History History of tooth extraction History of root canal procedure Encounter for orthopedic aftercare following scoliosis surgery History of ureter stent History of vein stripping History of partial hysterectomy History of colonoscopy (~07/06/23) Status post breast reduction Family History Father No problems noted. Mother Stroke Cancer Brother S/P triple vessel bypass Blind Brother Afib Daughter Bipolar 1 disorder Mental problem Family/Other FH: mental illness Social History Housing: House Alcohol intake: current Alcohol intake frequency: does not drink Patient Tobacco Use Status: Never used Tobacco e-Cigarette/Vaping Use: Never Used Second Hand Smoke Exposure: Yes service: No Current occupational status: retired Cognitive needs: No Hearing needs: No Vision needs: No Questionnaire PHQ-9 Over the last 2 weeks, how often have you been bothered by any of the following problems? 1. Little interest or pleasure in doing things: not at all 2. Feeling down, depressed, or hopeless: not at all 3. Trouble falling or staying asleep, or sleeping too much: more than half the days 4. Feeling tired or having little energy: more than half the days 5. Poor appetite or overeating: not at all 6. Feeling bad about yourself - or that you are a failure or have let yourself or your family down: not at all 7. Trouble concentrating on things, such as reading the newspaper or watching television: not at all 8. Moving or speaking so slowly that other people could have noticed. Or the opposite - being so fidgety or restless that you have been moving around a lot more than usual: not at all 9. Thoughts that you would be better off or of hurting yourself in some way: not at all Total score: 4 Depression Screening Interpretation: Positive Depression Screening Done: Yes Source: Developed by Drs. Candelario Chun, Erika Galeas, Handy Hogan and colleagues, with an educational amisha from [employer]. Thrive Questionnaire Date Thrive assessed: 03/22/25 I am a: Patient What is your living situation today?: I have a steady place to live Within the past 12 months, did the food you bought not last and you didn't have the money to get more?: Never true Within the past 12 months, did you worry whether your food would run out before you got money to buy more?: I choose not to answer this question Do you have trouble paying for medicines?: No Do you have trouble getting transportation to medical appointments?: No Do you have trouble paying your heating and electricity bill?: No Do you have trouble taking care of your child, family member or friend?: No Do you have trouble with day-to-day activities such as bathing, preparing meals, shopping, managing finances, etc.?: No Are you currently unemployed and looking for a job?: I choose not to answer this question Are you interested in more education?: No Please select the resources that you would like help with: None Currently or been in a relationship where the following occur: No concerns reported THRIVE Score: 0 AUDIT C Alcohol Use Questionnaire (AUDIT-C) 1. How often do you have a drink containing alcohol?: Never 2. How many drinks containing alcohol do you have on a typical day when you are drinking?: 1 or 2 3. How often do you have six or more drinks on one occasion?: Never Total Score: 0 LYSSA-7 AMB Questionnaire LYSSA-7 Date LYSSA - 7 assessed: 02/15/25 Feeling nervous, anxious, or on edge: 0 = Not at all Not being able to stop or control worryin = Not at all Worrying too much about different things: 1 = Several days Trouble relaxin = Several days Being so restless that it is hard to sit still: 0 = Not at all Becoming easily annoyed or irritable: 0 = Not at all Feeling afraid as if something awful might happen: 0 = Not at all Total LYSSA-7 score (0-4 normal; 5-9 mild; 10-14 moderate; 15-21 severe): 2 Source: Developed by Drs. Candelario Chun, Erika Galeas, Handy Hogan and colleagues, with an educational amisha from [employer]. Physical exam (Primary Care) Vital Signs: Last Vital Signs Temp 97.1 F 03/29/25 09:43 Pulse 88 03/29/25 09:43 BP 130/60 03/29/25 09:43 Pulse Ox 98 03/29/25 09:43 Oxygen Delivery Method Room Air 03/29/25 09:43 BMI result Body Mass Index 24.6 Tobacco/Smoking Status: Tobacco use Status Tobacco use date assessed 03/29/25 03/29/25 09:51 Patient Tobacco Use Status Never used Tobacco 03/29/25 09:51 e-Cigarette/Vaping Use Never Used 03/29/25 09:51 PHQ-9: PHQ-9 Score PHQ-9: Total score 4 03/29/25 09:51 Depression Screening Interpretation: Positive Thrive Assessment: Date of Thrive Assessment Date Thrive assessed 03/22/25 03/29/25 09:51 Currently or been in a relationship where the following occur: No concerns reported Results AMB Hemoglobin A1c AMB Hemoglobin A1c 6.8 % Last Edit by BETO Valencia on 03/29/25 10:01 Results Reviewed Results Reviewed: Laboratory Last Values Hgb A1c (Clinic) 6.8 % (4.0-6.0) H 03/29/25 09:42 Coding Level of Care Code Est Pt Prev Care >65y(12652) Diagnoses Anxiety F41.9 Diabetes E11.9 Assessment & Plan Assessment & Plan (1) Anxiety: Code(s): F41.9 - Anxiety disorder, unspecified Category: Medical Plan: Trazodone for sleep. (2) Diabetes: Code(s): E11.9 - Type 2 diabetes mellitus without complications Category: Medical Plan: A1c is in range. Continue meds at same dosage. Plan History of Present Illness - The patient is a 74-year-old female presenting with insomnia and sleep disturbances, reporting significant difficulty in achieving restful sleep, often only obtaining about two hours per night. - Her sleep disruption is compounded by stress, primarily from family responsibilities, including caring for her brother and her daughter's recent shoulder surgery. - She has previously attempted using lorazepam for sleep without success and is considering a trial of trazodone, starting at 50 mg, to improve her sleep quality. - Additionally, she has expressed interest in magnesium supplements as a potential aid for her insomnia. - She experiences musculoskeletal discomfort on her side when rising from bed, suggesting a muscular rather than renal origin. - There is a history of a fall resulting in knee soreness and swelling, though the kneecap appears unaffected. - The patient is prediabetic with an A1c of 6.8, indicating a need for dietary modifications and increased physical activity. Social History - The patient is involved in family care, providing support for her brother and daughter, which contributes to her stress levels. - She mentions dietary habits that may not be optimal given her prediabetic status, with recent consumption of sweets. - She acknowledges a need to engage in more physical activity to improve her health. Review of Systems - General: Reports feeling very tired due to lack of sleep. - Neurological: Reports difficulty sleeping, no mention of racing thoughts. - Musculoskeletal: Reports pain and soreness in knee after a fall, elbow pain, and side pain when rising. - Endocrine: Reports being prediabetic. - Psychological: Reports stress related to family responsibilities affecting sleep. Physical Exam General: Cooperative and healthy appearing Nutritional Appearance: Well nourished Orientation/consciousness: Patient oriented x3 Limitations: No limitations Head: Normal to inspection General: Appearance normal, both eyes and all related structures Neck: Normal visual inspection Chest: Normal palpation of entire chest wall Respiratory: N ormal respiratory effort Neurology: Patient oriented x3, reports fatigue and sleep disturbances. Results - Labs: A1c level of 6.8 indicating prediabetes. Plan 1. Insomnia - Initiate trazodone at 50 mg one hour before bedtime, with potential dosage adjustment based on response. - Consider magnesium supplements as an [id number]-brlmtzn sleep aid. 2. Prediabetes - Emphasize dietary changes and increased physical activity; monitor A1c levels through follow-up labs. 3. Musculoskeletal Pain - Advise on careful movement and report any persistent or worsening symptoms. 4. Recent Fall With Knee Injury - Monitor swelling and pain; rest is recommended. 5. Sleep Disturbance Due To Stress - Address stress management and underlying stressors affecting sleep. Discussion Notes I discussed with the patient the diagnosis of insomnia and the option of using trazodone to aid sleep, starting at a lower dose to monitor for side effects such as daytime grogginess. We also talked about trying magnesium supplements as a potential [id number] remedy. For her prediabetes, I advised dietary changes and increased physical activity to manage her blood sugar levels, with follow-up lab work to monitor her A1c. Regarding her musculoskeletal pain, I recommended careful movement and monitoring of symptoms, emphasizing the need for rest and reporting any worsening symptoms. We discussed the recent knee injury from a fall, which appears to be minor, and I assured her that monitoring was appropriate. The impact of stress on her sleep was acknowledged, and I suggested exploring stress management techniques to improve her overall sleep quality. We agreed on the plan and the importance of follow-up. Patient Instructions - Start trazodone at 50 mg one hour before bedtime. Adjust the dose if needed. - Consider taking magnesium supplements as a sleep aid. - Monitor your diet and increase physical activity to help manage blood sugar levels. - Report any persistent or worsening pain or swelling in your knee or elbow. - Rest and avoid activities that aggravate your side pain. - Work on managing stress to improve sleep quality. - Follow up with blood work as discussed. Orders: Orders Basic Metabolic Panel Today E11.9 - Type 2 diabetes mellitus without complications, F41.9 - Anxiety disorder, unspecified Liver Panel Today E11.9 - Type 2 diabetes mellitus without complications, F41.9 - Anxiety disorder, unspecified AMB Hemoglobin A1c Today E11.9 - Type 2 diabetes mellitus without complications Complete Blood Count no Diff Today E11.9 - Type 2 diabetes mellitus without complications, F41.9 - Anxiety disorder, unspecified Thyroid Stimulating Hormone Today E11.9 - Type 2 diabetes mellitus without complications, F41.9 - Anxiety disorder, unspecified UA and rflx microscopic Today E11.9 - Type 2 diabetes mellitus without complications, F41.9 - Anxiety disorder, unspecified Lipid Panel Today E11.9 - Type 2 diabetes mellitus without complications, F41.9 - Anxiety disorder, unspecified Medications: Refilled simvastatin 10 mg PO DAILY 90 tabs 1RF metformin ER 750 mg PO DAILY 90 tabs 1RF
[2025-03-29 09:43] VITALS: BP 130/60; PULSE 88; TEMP 36.2; O2SAT 98; BMI 24.6
--- OUTSIDE RECORDS SUMMARY | 2025-03-29 09:52 | XMS_ITS | Data Portability ---
Author Organization [place] - [facility], [facility] Address [address] [place] [address] Care Team Providers Care Poultry Farm Supervisor Name Role Phone MONTEZ WALL Referring Provider [...] tablet,jazmine h resistant,e xtended release 2015 016 [email or web address] Not available 3 16:56:39 Dilaudid 2 mg [...] tablet,jazmine h resistant,e xtended release 2015 016 [email or web address] Not available 3 16:56:39 Dilaudid 2 mg [...] tablet,jazmine h resistant,e xtended release 2015 016 [email or web address] Not available 3 16:56:38 Dilaudid 2 mg [...] By Organization Details Last Modified Time 04/03/2016 [id number] Discharge to [facility] with meds and services on 04/04/16 . Page 1 completed and this note will serve as a discharge summary which I will fax to PCP Dr. Lobato with whom she has an appt on 04/16/16. 45 minutes spent discussing discharge with pt, reconciling med and completing paperwork [email or web address] Not available 04/03/2016 17:45:20 Reason for Referral None Reported. Problems Name Problem SNOMED Code Status Onset Date Resolution Date Notes Provider Name and Address Organization Details Recorded Time Spinal stenosis of lumbar region 48658652 Active Karma Gloria , TIME STUDY TECHNOLOGIST [facility] [place], [address], [facility] 15:05:49 Scoliosis deformity of spine 928838516 Active Karma Gloria , TIME STUDY TECHNOLOGIST [facility] [place], [address], [facility] 15:05:49 Candidiasis of mouth 31525123 Active Karma Gloria , TIME STUDY TECHNOLOGIST [facility] [place], [address], [facility] 15:00:47 Urinary tract infectious disease 83486759 Active Karma Gloria , TIME STUDY TECHNOLOGIST [address] [place] [address], [address], [facility] 15:05:49 Anxiety 70754138 Active Karma Gloria , TIME STUDY TECHNOLOGIST [address] [place] [address], [address], [facility] 15:05:49 Hyperlipidemia 65830316 Active Karma Gloria , TIME STUDY TECHNOLOGIST [address] [place] [address], [address], [facility] 15:00:47 Gastroesophage al reflux disease 462510460 Active Karma Gloria , TIME STUDY TECHNOLOGIST [address] [place] [address], [address], [facility] 15:00:47 Medullary sponge kidney without nephrocalcinos is 246468055 Active Karma Gloria , TIME STUDY TECHNOLOGIST [address] [place] [address], [address], [facility] 15:00:47 Problem Notes None recorded. Medical Equipment None Reported. Allergies Allergen ID Allergen Name Allergen Category Reaction Reaction Severity Criticality Documentation Date Start Date Code Code System Note Provider Name and Address Organization Details Recorded Time 54025 codeine medicatio n Not available Not available Not available 03/31/2016 2670 RxNorm Karma Gloria , TIME STUDY TECHNOLOGIST [address] [place] [address], [address], [facility] 05/31/201 6 16:50:58 Medications Name Sig Start Date [...] 03/31/2016 88 /min 135 mm[Hg] 62 mm[Hg] Karma Gloria, TIME STUDY TECHNOLOGIST [address] [place] [address], [phone], [facility] 03/31/2016 17:00:11 Date Recorded Heart rate Oxygen saturation Oxygen saturation in Arterial blood by Pulse oximetry Systolic blood pressure Diastolic blood pressure Provider Name and Address Organization Details Last Updated DateTime 6 103 /min 98 % 98 % 113 mm[Hg] 65 mm[Hg] Tato Alvarado MD [address] [place] [address], [phone], [facility] 6 16:43:47 Date Recorded Systolic blood pressure Diastolic blood pressure Provider Name and Address Organization Details Last Updated DateTime 04/02/2016 111 mm[Hg] 73 mm[Hg] Karma Gloria NP [address] [place] [address], [address] 04/05/2016 15:03:01 Social History Question Answer Notes LastModified by Organizat ion Details LastModified Time Tobacco Smoking Status Never Smoker Not Available [facility] 09/03/2020 03:36:16 How Much Tobacco Do You Smoke? No [id number] Information not available 09/03/2020 Sex: Unknown Functional Status None recorded. Mental Status None recorded. Family History Nothing Reported. Medical History No medical history recorded. Gynecological HistoryNo gynecological history recorded. Obstetrics History GPAL:G 0 P 0 0 0 0 Past Encounters Encounter ID Performer Location Encounter Start Date Encounter Closed Date Diagnosis/Indication Diagnosis SNOMED-CT Code Diagnosis ICD10 Code Diagnosis Note [id number] Karma Gloria NP [facility] [address] [facility] [place] [address] 03/31/2016 16:42:57 03/31/2016 17:08:42 Spinal stenosis of lumbar region 44564083 M48.06 Would like to be awoken during the night so will schedule dilaudid ATC Q3H Scoliosis deformity of spine 448359249 Q67.5 Has noticed that she is straighter than pre op Candidiasis of mouth 797 [address]161 B37.9 Urinary tr act infectious disease 50938063 N39.0 Continue for 7 days Anxiety 30857822 F41.9 Hyperlipidemia 50038948 E78.5 Gastroesop hageal reflux disease 004003879 K21.9 [id number] Tato Alvarado MD [address] [address] 04/01/2016 08:27:25 04/01/2016 16:59:55 Spinal stenosis of lumbar region 43774464 M48.06 Would like to be awoken during the night so will schedule dilaudid ATC Q3H Scoliosis deformity of spine 869527965 Q67.5 Has noticed that she is straighter than pre op Candidiasis of mouth 797 80085 B37.9 Tiny residual noted, but improving Urinary tr act infectious disease 52238619 N39.0 Continue for 7 days Anxiety 90902573 F41.9 Hyperlipidemia 95145407 E78.5 Gastroesop hageal reflux disease 571756702 K21.9 Medullary sponge kidney without nephrocalcinosis 398848605 Q61.5 Has hx of stones in past [id number] Karma Gloria NP [address] [address] 04/02/2016 10:28:36 04/05/2016 15:07:14 Spinal stenosis of lumbar region 77524926 M48.06 Her function is very good and I have told her that i think it is not more than expected after her surgery Scoliosis deformity of spine 060393750 Q67.5 Has noticed that she is straighter than pre op Urinary tr act infectious disease 33913887 N39.0 Continue Bactrim for a total of7 days. I think it unlikely that her back pain is causing by the UTI Anxiety 95047692 F41.9 [id number] Karma Gloria NP [address] [address] 04/03/2016 08:58:45 04/03/2016 17:52:24 Spinal stenosis of lumbar region 47226983 M48.06 IS taking dilaudid 6 mg ATC Q3H. I have given her a script fro another #90 tabs. She also has #7 tramadol here and I will give her a script for another #30. She has enough oxycontin to complete the taper. Scoliosis deformity of spine 633471127 Q67.5 Has noticed that she is straighter than pre op Candidiasis of mouth 797 [address]0971 B37.9 Tiny residual noted, but improving Urinary tr act infectious disease 30543159 N39.0 Last dose of bactrim today. Will repeat urine culture at her request Anxiety 34486553 F41.9 Has #14 ativan that she will take home with her. No further script given Hyperlipidemia 37680653 E78.5 Gastroesop hageal reflux disease 217837409 K21.9 Medullary sponge kidney without nephrocalcinosis 395170378 Q61.5 Has hx of stones in past Health Concerns Section Related Observation LastModified by Organization Detai ls LastModified Time None Recorded Concern Status LastModified by Organization Details LastModified Time None Recorded Advance Directives Directive None Recorded Payers Insurance Date Sequence Insurance Name Policy Number Policy Muñiz Covered Member ID Muñiz Member ID Guarantor Name 04/03/2016 1 [place] [employer] Mellissa Ralphrowena [id number] Mellissa Edmondson 04/03/2016 2 [place] Mellissa A Ralphrowena [id number] Mellissa Edmondson 06/10/2016 2 [place] [facility] Mellissa Garrow [id number] Mellissa Debo Notes Date Note Type Note Provider Name and Address Organization Details Recorded Time 03/31/2016 text/html This 65 yo woman was admitted to [facility] on 03/31/16 from [facility] where she underwent scoliosis reducing surgery [...] to hypokalemia and she was repleted Karma Gloria NP [address] [place] [address], [phone], [facility] 03/31/2016 17:07:59 04/01/2016 text/html This 65 yo woman was admitted to on 03/30 for STR after spine surgery for scoliosis done on 03/24 at [facility] by Dr. Wall. She had extensive [...] HLD, scoliosis, and anxiety. Tato Alvarado MD [address] [place] [address], [phone], [facility] - [facility] 04/01/2016 16:59:33 04/02/2016 text/html We [...] is currently being treated with bactrim Karma Gloria NP [address] [place] [address], [phone], [facility] 04/05/2016 15:06:13 OBGyn Episode No OBEpisode recorded.
== END 2025-03-29 10:30 | disposition home or self-care (01) ==
LOC: HO.HMCH 09:34
PROVIDERS: PCP Internal Medicine; Visit Provider Internal Medicine
DX: Z00.00 Encounter for general adult medical examination without abnormal findings (principal); F41.9 Anxiety disorder, unspecified; E11.9 Type 2 diabetes mellitus without complications

== ENCOUNTER → 2025-03-29 09:33 | Outpatient (BNVA) | payer MEDICARE, MEDICAID, SELFPAY | PROVIDERS: PCP Internal Medicine; Visit Provider Internal Medicine | DX: Z00.00 Encounter for general adult medical examination without abnormal findings (principal); F41.9 Anxiety disorder, unspecified; E11.9 Type 2 diabetes mellitus without complications; G47.00 Insomnia, unspecified; Z91.81 History of falling | CPT/HCPCS: 83036; 96127; 99397 ==

== ENCOUNTER 2025-04-13 08:07 | Outpatient (REF) | payer MEDICARE, MEDICAID, SELFPAY ==
--- OUTSIDE RECORDS SUMMARY | 2025-04-13 08:13 | XMS_ITS | Data Portability ---
Author Organization [place] - [facility], [facility] [place] Address [address] [place] [address] Care Team Providers Care Summer Sessions Director Name Role Phone MONTEZ WALL Referring Provider [...] tablet,jazmine h resistant,e xtended release 2015 016 [email or web address] Not available 3 16:56:39 Dilaudid 2 mg [...] xtended release 2015 016 Not available 3 16:56:39 Dilaudid 2 mg [...] tablet,jazmine h resistant,e xtended release 2015 016 [email or web address] Not available 3 16:56:38 Dilaudid 2 mg [...] By Organization Details Last Modified Time 04/03/2016 [id number] Discharge to [facility] with meds and services on 04/04/16 . [...] Recorded Time Spinal stenosis of lumbar region 44643819 Active Karma Gloria , DIRECTOR SALES AND MARKETING [facility] [place], [address], [facility] 15:05:49 Scoliosis deformity of spine 370997756 Active Karma Gloria , DIRECTOR SALES AND MARKETING [facility] [place], [address], [facility] 15:05:49 Candidiasis of mouth 47371290 Active Karma Gloria , DIRECTOR SALES AND MARKETING [facility] [place], [address], [facility] 15:00:47 Urinary tract infectious disease 15379096 Active Karma Gloria , DIRECTOR SALES AND MARKETING [address] [place] [address], [address], [facility] 15:05:49 Anxiety 45211488 Active Karma Gloria , DIRECTOR SALES AND MARKETING [address] [place] [address], [address], [facility] 15:05:49 Hyperlipidemia 73633040 Active Karma Gloria , DIRECTOR SALES AND MARKETING [address] [place] [address], [address], [facility] 15:00:47 Gastroesophage al reflux disease 857055253 Active Karma Gloria , DIRECTOR SALES AND MARKETING [address] [place] [address], [address], [facility] 15:00:47 Medullary sponge kidney without nephrocalcinos is 949845859 Active Karma Gloria , DIRECTOR SALES AND MARKETING [address] [place] [address], [address], [facility] 15:00:47 Problem Notes None recorded. Medical Equipment None Reported. Allergies Allergen ID Allergen Name Allergen Category Reaction Reaction Severity Criticality Documentation Date Start Date Code Code System Note Provider Name and Address Organization Details Recorded Time 07435 codeine medicatio n Not available Not available Not available 03/31/2016 2670 RxNorm Karma Gloria , DIRECTOR SALES AND MARKETING [address] [place] [address], [address], [facility] 05/31/201 6 [...] /min 135 mm[Hg] 62 mm[Hg] Karma Gloria, DIRECTOR SALES AND MARKETING [address] [place] [address], [address], [facility] 03/31/2016 17:00:11 Date Recorded Heart rate Oxygen saturation Oxygen saturation in Arterial blood by Pulse oximetry Systolic blood pressure Diastolic blood pressure Provider Name and Address Organization Details Last Updated DateTime 6 103 /min 98 % 98 % 113 mm[Hg] 65 mm[Hg] Tato Alvarado MD [address] [place] [address], [address], [facility] 6 16:43:47 Date Recorded Systolic blood pressure Diastolic blood pressure Provider Name and Address Organization Details Last Updated DateTime 04/02/2016 111 mm[Hg] 73 mm[Hg] Karma Gloria NP [address] [place] [address], [address] 04/05/2016 15:03:01 Social History Question Answer Notes LastModified by Organizat ion Details LastModified Time Tobacco Smoking Status Never Smoker Not Available [facility] 09/03/2020 03:36:16 How Much Tobacco Do You Smoke? No [id number] Information not available 09/03/2020 Sex: Unknown Functional Status None recorded. Mental Status None recorded. Family History Nothing Reported. Medical History No medical history recorded. Gynecological HistoryNo gynecological history recorded. Obstetrics History GPAL:G 0 P 0 0 0 0 Past Encounters Encounter ID Performer Location Encounter Start Date Encounter Closed Date Diagnosis/Indication Diagnosis SNOMED-CT Code Diagnosis ICD10 Code Diagnosis Note [id number] Karma Gloria NP [facility] [address] [facility] [place] [address] 03/31/2016 16:42:57 03/31/2016 17:08:42 Spinal stenosis of lumbar region 02346869 M48.06 Would like to be awoken during the night so will schedule dilaudid ATC Q3H Scoliosis deformity of spine 882178633 Q67.5 Has noticed that she is straighter than pre op Candidiasis of mouth 797 80137 B37.9 Urinary tr act infectious disease 72720897 N39.0 Continue for 7 days Anxiety 84603589 F41.9 Hyperlipidemia 90478849 E78.5 Gastroesop hageal reflux disease 578031185 K21.9 [id number] Tato Alvarado MD [address] [address] 04/01/2016 08:27:25 04/01/2016 16:59:55 Spinal stenosis of lumbar region 18531026 M48.06 Would like to be awoken during the night so will schedule dilaudid ATC Q3H Scoliosis deformity of spine 247158724 Q67.5 Has noticed that she is straighter than pre op Candidiasis of mouth 797 08411 B37.9 Tiny residual noted, but improving Urinary tr act infectious disease 99263185 N39.0 Continue for 7 days Anxiety 29705340 F41.9 Hyperlipidemia 19816985 E78.5 Gastroesop hageal reflux disease 723298285 K21.9 Medullary sponge kidney without nephrocalcinosis 666376217 Q61.5 Has hx of stones in past [id number] Karma Gloria NP [address] [address] 04/02/2016 10:28:36 04/05/2016 15:07:14 Spinal stenosis of lumbar region 20859230 M48.06 Her function is very good and I have told her that i think it is not more than expected after her surgery Scoliosis deformity of spine 743135438 Q67.5 Has noticed that she is straighter than pre op Urinary tr act infectious disease 08995834 N39.0 Continue Bactrim for a total of7 days. I think it unlikely that her back pain is causing by the UTI Anxiety 92444803 F41.9 [id number] Karma Gloria NP [address] [address] 04/03/2016 08:58:45 04/03/2016 17:52:24 Spinal stenosis of lumbar region 87252075 M48.06 IS taking dilaudid 6 mg ATC Q3H. I have given her a script fro another #90 tabs. She also has #7 tramadol here and I will give her a script for another #30. She has enough oxycontin to complete the taper. Scoliosis deformity of spine 079546912 Q67.5 Has noticed that she is straighter than pre op Candidiasis of mouth 797 14947 B37.9 Tiny residual noted, but improving Urinary tr act infectious disease 22296568 N39.0 Last dose of bactrim today. Will repeat urine culture at her request Anxiety 55020330 F41.9 Has #14 ativan that she will take home with her. No further script given Hyperlipidemia 54553260 E78.5 Gastroesop hageal reflux disease 967435524 K21.9 Medullary sponge kidney without nephrocalcinosis 686623714 Q61.5 Has hx of stones in past Health Concerns Section Related Observation LastModified by Organization Detai ls LastModified Time None Recorded Concern Status LastModified by Organization Details LastModified Time None Recorded Advance Directives Directive None Recorded Payers Insurance Date Sequence Insurance Name Policy Number Policy Muñiz Covered Member ID Muñiz Member ID Guarantor Name 04/03/2016 1 [place] [employer] Mellissa Ralphrowena [id number] Mellissa Edmondson 04/03/2016 2 [place] [employer] Mellissa A Ralphrowena [id number] Mellissa Edmondson 06/10/2016 2 [place] [facility] Mellissa Garrow [id number] Mellissa Debo Notes Date Note Type Note Provider Name and Address Organization Details Recorded Time 03/31/2016 text/html This 65 yo woman was admitted to [facility] she underwent scoliosis reducing surgery [...] and she was repleted Karma Gloria NP [address] [place] [address], [address], [facility] 03/31/2016 17:07:59 04/01/2016 text/html This 65 yo woman was admitted to on 03/30 for STR after spine surgery for [facility] by [facility]. Wall. She had extensive [...] HLD, scoliosis, and anxiety. Tato Alvarado MD [address] [place] [address], [phone], [facility] 04/01/2016 16:59:33 04/02/2016 text/html We [...] being treated with bactrim Karma Gloria NP [address] [place] [address], [address], [facility] 04/05/2016 15:06:13 OBGyn Episode No OBEpisode recorded.
[2025-04-13 08:47] LABS: Hematocrit 44.1 % (37.0-47.0); Hemoglobin 14.5 g/dl (12.0-16.0); Mean Corpuscular HGB Conc 32.9 g/dl (31.0-35.0); Mean Corpuscular Volume 88.2 fL (80.0-98.0); Mean Platelet Volume 10.4 fL (9.4-12.3); Platelet Count 268 X10*3/uL (160-400); Red Cell Distribution Width 13.2 % (11.0-16.0); White Blood Count 7.5 X10*3/uL (4.8-10.8)
[2025-04-13 08:55] LABS: Appearance Urine Clear; Color Urine Yellow; Glucose Urine UA Negative (Negative); Leukocyte Esterase Urine Moderate (2+) (Negative); Nitrite Urine Negative (Negative); PH 5.5 (5.0-9.0); UMIC TRIGGER UA YES; Urine Blood Negative (Negative); Urine Ketones Negative (Negative); Urine Protein Negative (Neg-Trace)
[2025-04-13 09:01] LABS: Bacteria Urine None Seen (None Seen); Hyaline Casts Urine 0-2 /LPF (0-2); RBC Urine 0-2 /HPF (0-2); Squamous Epithelial Cell Urine 0-2 /HPF (0-2)
[2025-04-13 09:18] LABS: Alanine Aminotransferase 22 U/L (0-31); Albumin Level 4.3 g/dL (3.5-5.0); Alkaline Phosphatase 89 U/L (39-117); Anion Gap 9 (12-20); Aspartate Amino Transferase 23 U/L (5-31); Bilirubin Direct 0.2 mg/dL (0.0-0.5); Bilirubin Total 0.5 mg/dL (0.0-1.0); Blood Urea Nitrogen 19 mg/dL (9-16); Carbon Dioxide 29 mmol/L (22-29); Chloride 109 mmol/L (96-108); Cholesterol 151 mg/dL (<200); Estimated Glomerular Filt Rate > 60; Glucose Random 130 mg/dL (60-115); HDL Cholesterol 43 mg/dL (>40); LDL Cholesterol Calculated 87 mg/dL (<100); Potassium 3.8 mmol/L (3.3-5.1); Sodium 143 mmol/L (135-145); Triglycerides 105 mg/dL (<150)
[2025-04-13 09:38] LABS: Thyroid Stimulating Hormone 1.01 uIU/mL (0.32-4.0)
== END 2025-04-13 08:08 | disposition home or self-care (01) ==
LOC: HO.LAB 08:07
PROVIDERS: PCP Internal Medicine; Visit Provider Internal Medicine
DX: E11.9 Type 2 diabetes mellitus without complications (principal); F41.9 Anxiety disorder, unspecified; M81.0 Age-related osteoporosis without current pathological fracture; D32.9 Benign neoplasm of meninges, unspecified
CPT/HCPCS: 36415; 80048; 80061; 80076; 81001; 84443; 85027

== ENCOUNTER 2025-04-17 10:25 | Outpatient (AMB) | payer MEDICARE, MEDICAID, SELFPAY ==
[2025-04-17 10:29] VITALS: BP 140/82; PULSE 82; TEMP 36.9; O2SAT 98; BMI 24.7
--- NOTE | 2025-04-17 10:29 | AM.OFFWIN_ITS ---
Intake Vital Signs 04/17/25 10:29 Height 5 ft 5 in Weight 148 lb 8 oz BMI 24.7 BP 140/82 H Blood Pressure Location Lt brachial Position Sitting Pulse 82 Pulse Source Pulse Oximeter Temp 98.5 F Temp Source Oral Pulse Oximetry (%) 98 Oxygen Delivery Method Room Air Intake Visit Reasons: EP Cat bite Intake Note: Patient present for a cat bite,5 days ago Patient Tobacco Use Status: Never used Tobacco Allergies codeine Allergy (Verified 04/17/25 10:33) Unknown Do you need a note to return to daycare/school/sports/work: No HPI HPI Comments 2 History of Present Illness Details History- The patient is a 75-year-old female presenting with a cat bite 5 days ago by the same cat she was bit by in January. - The patient was bitten by a cat in Jan, which was not her own, leading to concerns about rabies. - She received rabies vaccinations in [facility] as a precautionary measure. - She has been washing the area thorough ly daily for the last 5 days. Physical Exam General: Cooperative, healthy appearing, comfortable, no acute distress and well developed Orientation: Patient oriented x3 Limitations: No limitations Head: Normal to inspection Ears: Hearing grossly normal bilaterally Nose: Normal External nose present Face and sinus: Normal facial exam Mouth: normal, moist oral mucosa Eyes: Appearance normal, both eyes and all related structures Neck: Normal visual inspection and Yes full ROM Respiratory: Normal respiratory effort and able to speak in complete sentences. Skin: RLE small area of ecchymosis with small lacs, no drainage, healing well, no warmth Neuro: Patient oriented x3 Extremities: moving all extremities normally PFSH Medical History Cat bite of right lower leg Age-related osteoporosis without current pathological fracture Knee pain Diabetes Constipation Meningioma Hyperlipidemia Anxiety Surgical History History of tooth extraction History of root canal procedure Encounter for orthopedic aftercare following scoliosis surgery History of ureter stent History of vein stripping History of partial hysterectomy History of colonoscopy (~07/06/23) Status post breast reduction Family History Father No problems noted. Mother Stroke Cancer Brother S/P triple vessel bypass Blind Brother Afib Daughter Bipolar 1 disorder Mental problem Family/Other FH: mental illness Social History Housing: House Alcohol intake: current Alcohol intake frequency: does not drink Patient Tobacco Use Status: Never used Tobacco e-Cigarette/Vaping Use: Never Used Second Hand Smoke Exposure: Yes service: No Current occupational status: retired Cognitive needs: No Hearing needs: No Vision needs: No Review of Systems Const All systems reviewed & are unremarkable except as noted in HPI and below Physical Exam Vital Signs: Last Vital Signs Temp 98.5 F 04/17/25 10:29 Pulse 82 04/17/25 10:29 BP 140/82 H 04/17/25 10:29 Pulse Ox 98 04/17/25 10:29 Oxygen Delivery Method Room Air 04/17/25 10:29 BMI result Body Mass Index 24.7 Assessment & Plan Assessment & Plan (1) Cat bite of right lower leg with infection: Code(s): S81.851A - Open bite, right lower leg, initial encounter; L08.9 - Local infection of the skin and subcutaneous tissue, unspecified; W55.01XA - Bitten by cat, initial encounter Qualifiers: Encounter type: initial encounter Qualified Code(s): S81.851A - Open bite, right lower leg, initial encounter; L08.9 - Local infection of the skin and subcutaneous tissue, unspecified; W55.01XA - Bitten by cat, initial enco unter Plan: - Prescribed Augmentin to prevent infection due to the cat bite. - Advised to contact animal control regarding the cat. - Confirmed with the [facility] provider that recent rabies vaccination provides adequate protection for up to 1 year. Will call patient to advise. Patient was informed and verbally consented to the use of an ambient scribe for clinic note documentation during this visit Medications: New amoxicillin-pot clavulanate 875-125 mg 1 tab PO Q12H 14 tabs 0RF Coding Level of Care Code Est Pt Level 3 (74544) Diagnoses Cat bite of right lower leg with infection, initial encounter S81.851A; L08.9; W55.01XA Encounter type: initial encounter
--- OUTSIDE RECORDS SUMMARY | 2025-04-17 11:55 | XMS_ITS | Data Portability ---
Author Organization [place] [facility], [place] Address [address] [place] [id number] Care Team Providers Care Medical Fee Clerk Name Role Phone MONTEZ WALL Referring Provider [...] tablet,jazmine h resistant,e xtended release 2015 016 [email or web address] Not available 3 16:56:39 Dilaudid 2 mg [...] By Organization Details Last Modified Time 04/03/2016 [id number] Discharge to [facility] with meds and services on 04/04/16 . [...] Recorded Time Spinal stenosis of lumbar region 67115679 Active Karma Gloria , MILK SAMPLER [facility] [place], [phone], [facility] 15:05:49 Scoliosis deformity of spine 859463640 Active Karma Gloria , MILK SAMPLER [facility] [place], [phone], [facility] 15:05:49 Candidiasis of mouth 47567628 Active Karma Gloria , MILK SAMPLER [facility] [place], [address], [facility] 15:00:47 Urinary tract infectious disease 13786286 Active Karma Gloria , MILK SAMPLER [address] [place] [address], [phone], [facility] 15:05:49 Anxiety 93651964 Active Karma Gloria , MILK SAMPLER [address] [place] [address], [phone], [facility] 15:05:49 Hyperlipidemia 22125182 Active Karma Gloria , MILK SAMPLER [address] [place] [address], [phone], [facility] 15:00:47 Gastroesophage al reflux disease 014985458 Active Karma Gloria , MILK SAMPLER [address] [place] [address], [phone], [facility] 15:00:47 Medullary sponge kidney without nephrocalcinos is 896210356 Active Karma Gloria , MILK SAMPLER [address] [place] [address], [phone], [facility] 15:00:47 Problem Notes None recorded. Medical Equipment None Reported. Allergies Allergen ID Allergen Name Allergen Category Reaction Reaction Severity Criticality Documentation Date Start Date Code Code System Note Provider Name and Address Organization Details Recorded Time 10245 codeine medicatio n Not available Not available Not available 03/31/2016 2670 RxNorm Karma Gloria , MILK SAM[employer]ER [address] [place] [address], [phone], [facility] 05/31/201 6 16:50:58 [...] /min 135 mm[Hg] 62 mm[Hg] Karma Gloria, MILK SAMPLER [address] [place] [address], [phone], [facility] 03/31/2016 17:00:11 Date Recorded Heart rate Oxygen saturation Oxygen saturation in Arterial blood by Pulse oximetry Systolic blood pressure Diastolic blood pressure Provider Name and Address Organization Details Last Updated DateTime 6 103 /min 98 % 98 % 113 mm[Hg] 65 mm[Hg] Tato Alvarado MD [address] [place] [address], [phone], [facility] 6 16:43:47 Date Recorded Systolic blood pressure Diastolic blood pressure Provider Name and Address Organization Details Last Updated DateTime 04/02/2016 111 mm[Hg] 73 mm[Hg] Karma Gloria NP [address] [place] [address], [phone] 04/05/2016 15:03:01 Social History Question Answer Notes LastModified by Organizat ion Details LastModified Time Tobacco Smoking Status Never Smoker Not Available [facility] 09/03/2020 03:36:16 How Much Tobacco Do You Smoke? No [id number] Information not available 09/03/2020 Sex: Unknown Functional Status None recorded. Mental Status None recorded. Family History Nothing Reported. Medical History No medical history recorded. Gynecological HistoryNo gynecological history recorded. Obstetrics History GPAL:G 0 P 0 0 0 0 Past Encounters Encounter ID Performer Location Encounter Start Date Encounter Closed Date Diagnosis/Indication Diagnosis SNOMED-CT Code Diagnosis ICD10 Code Diagnosis Note [id number] Karma Gloria NP [facility] [address] [facility] [place] [address] 03/31/2016 16:42:57 03/31/2016 17:08:42 Spinal stenosis of lumbar region 15627468 M48.06 Would like to be awoken during the night so will schedule dilaudid ATC Q3H Scoliosis deformity of spine 085814555 Q67.5 Has noticed that she is straighter than pre op Candidiasis of mouth 797 64266 B37.9 Urinary tr act infectious disease 81525409 N39.0 Continue for 7 days Anxiety 09609492 F41.9 Hyperlipidemia 44790603 E78.5 Gastroesop hageal reflux disease 468105255 K21.9 [id number] Tato Alvarado MD [address] [address] 04/01/2016 08:27:25 04/01/2016 16:59:55 Spinal stenosis of lumbar region 83068581 M48.06 Would like to be awoken during the night so will schedule dilaudid ATC Q3H Scoliosis deformity of spine 136888700 Q67.5 Has noticed that she is straighter than pre op Candidiasis of mouth 797 13926 B37.9 Tiny residual noted, but improving Urinary tr act infectious disease 76712048 N39.0 Continue for 7 days Anxiety 85524733 F41.9 Hyperlipidemia 74460252 E78.5 Gastroesop hageal reflux disease 886790616 K21.9 Medullary sponge kidney without nephrocalcinosis 453686110 Q61.5 Has hx of stones in past [id number] Karma Gloria NP [address] [address] 04/02/2016 10:28:36 04/05/2016 15:07:14 Spinal stenosis of lumbar region 93306536 M48.06 Her function is very good and I have told her that i think it is not more than expected after her surgery Scoliosis deformity of spine 724307542 Q67.5 Has noticed that she is straighter than pre op Urinary tr act infectious disease 85027423 N39.0 Continue Bactrim for a total of7 days. I think it unlikely that her back pain is causing by the UTI Anxiety 33641756 F41.9 [id number] Karma Gloria NP [address] [address] 04/03/2016 08:58:45 04/03/2016 17:52:24 Spinal stenosis of lumbar region 83893842 M48.06 IS taking dilaudid 6 mg ATC Q3H. I have given her a script fro another #90 tabs. She also has #7 tramadol here and I will give her a script for another #30. She has enough oxycontin to complete the taper. Scoliosis deformity of spine 656851608 Q67.5 Has noticed that she is straighter than pre op Candidiasis of mouth 797 14466 B37.9 Tiny residual noted, but improving Urinary tr act infectious disease 78985451 N39.0 Last dose of bactrim today. Will repeat urine culture at her request Anxiety 46553893 F41.9 Has #14 ativan that she will take home with her. No further script given Hyperlipidemia 67192145 E78.5 Gastroesop hageal reflux disease 479296134 K21.9 Medullary sponge kidney without nephrocalcinosis 658526137 Q61.5 Has hx of stones in past Health Concerns Section Related Observation LastModified by Organization Detai ls LastModified Time None Recorded Concern Status LastModified by Organization Details LastModified Time None Recorded Advance Directives Directive None Recorded Payers Insurance Date Sequence Insurance Name Policy Number Policy Muñiz Covered Member ID Muñiz Member ID Guarantor Name 04/03/2016 1 [place] B[place]: [employer] Mellissa Ralphrowena [id number] Mellissa Edmondson 04/03/2016 2 [place] [employer] Mellissa A Ralphrowena [id number] Mellissa Edmondson 06/10/2016 2 [place] [facility] Mellissa Garrow [id number] Mellissa Debo Notes Date Note Type Note Provider Name and Address Organization Details Recorded Time 03/31/2016 text/html This 65 yo woman was admitted to [facility] on 03/31/16 from [facility] [...] and she was repleted Karma Gloria NP [address] [place] [address], [phone], [facility] 03/31/2016 17:07:59 04/01/2016 [...] HLD, scoliosis, and anxiety. Tato Alvarado MD [address] [place] [address], [phone], [facility] 04/01/2016 16:59:33 04/02/2016 text/html We [...] being treated with bactrim Karma Gloria NP [address] [place] [address], [phone], [facility] 04/05/2016 15:06:13 OBGyn Episode No OBEpisode recorded.
== END 2025-04-17 11:17 | disposition home or self-care (01) ==
PROVIDERS: PCP Internal Medicine; Visit Provider Physician Assistant
DX: S81.851A Open bite, right lower leg, initial encounter (principal); L08.9 Local infection of the skin and subcutaneous tissue, unspecified; W55.01XA Bitten by cat, initial encounter

== ENCOUNTER → 2025-04-17 10:25 | Outpatient (BNVA) | payer MEDICARE, MEDICAID, SELFPAY | PROVIDERS: PCP Internal Medicine | DX: S81.851A Open bite, right lower leg, initial encounter (principal); L08.9 Local infection of the skin and subcutaneous tissue, unspecified; W55.01XA Bitten by cat, initial encounter | CPT/HCPCS: 99212 ==

== ENCOUNTER 2025-04-19 13:04 | Outpatient (AMB) | payer MEDICARE, MEDICAID, SELFPAY ==
--- NOTE | 2025-04-19 13:09 | MHC.PC.OV ---
Vital Signs 04/19/25 13:11 Height 5 ft 5 in Weight 146 lb 8 oz BMI 24.4 BP 130/76 Blood Pressure Location Lt brachial Position Sitting Pulse 86 Pulse Source Pulse Oximeter Temp 97.3 F Temp Source Temporal Artery Scan Pulse Oximetry (%) 99 Oxygen Delivery Method Room Air Intake Visit Reasons: stomach issues Intake Note: Patient is here to follow up on left flank pain. Enrollment Processor Required: No Manager [place]: Not Required per policy Accompanied by: Self / Same As Patient Allergies codeine Allergy (Verified 04/19/25 13:11) Unknown Tobacco use date assessed: 04/19/25 Fall risk assessment: No Falls in past year Last assessed Fall Risk: 04/19/25 Dental Screening Dental Screen Date: 02/15/25 [facility] Medical History (Updated 04/19/25 @ 13:35 by Dean Colmenares MD) Low back pain Cat bite of right lower leg Age-related osteoporosis without current pathological fracture Knee pain Diabetes Constipation Meningioma Hyperlipidemia Anxiety Surgical History History of tooth extraction History of root canal procedure Encounter for orthopedic aftercare following scoliosis surgery History of ureter stent History of vein stripping History of partial hysterectomy History of colonoscopy (~07/06/23) Status post breast reduction Family History Father No problems noted. Mother Stroke Cancer Brother S/P triple vessel bypass Blind Brother Afib Daughter Bipolar 1 disorder Mental problem Family/Other FH: mental illness Social History Housing: House Alcohol intake: current Alcohol intake frequency: does not drink Patient Tobacco Use Status: Never used Tobacco e-Cigarette/Vaping Use: Never Used Second Hand Smoke Exposure: Yes service: No Current occupational status: retired Cognitive needs: No Hearing needs: No Vision needs: No Questionnaire Thrive Questionnaire Date Thrive assessed: 03/22/25 LYSSA-7 AMB Questionnaire LYSSA-7 Date LYSSA - 7 assessed: 02/15/25 Source: Developed by Drs. Candelario Chun, Erika Galeas, Handy Hogan and colleagues, with an educational amisha from [employer]. Physical exam (Primary Care) Vital Signs: Last Vital Signs Temp 97.3 F 04/19/25 13:11 Pulse 86 04/19/25 13:11 BP 130/76 04/19/25 13:11 Pulse Ox 99 04/19/25 13:11 Oxygen Delivery Method Room Air 04/19/25 13:11 BMI result Body Mass Index 24.4 Tobacco/Smoking Status: Tobacco use Status Tobacco use date assessed 04/19/25 04/19/25 13:16 Patient Tobacco Use Status Never used Tobacco 04/19/25 13:16 e-Cigarette/Vaping Use Never Used 04/19/25 13:16 Thrive Assessment: Date of Thrive Assessment Date Thrive assessed 03/22/25 04/19/25 13:16 Coding Level of Care Code Est Pt Level 4 (62599) Complex EM visit Add On G2211 Diagnoses Low back pain M54.50 Assessment & Plan Assessment & Plan (1) Low back pain: Code(s): M54.50 - Low back pain, unspecified Category: Medical Plan: Symptoms aggravated by her scoliosis. Muscle relaxants added to the regimen. PT added. Pt will schedule [facility] appt on her own regarding the scoliosis Plan History of Present Illness - The patient is a 75-year-old female presenting with musculoskeletal pain. - Reports pain in her side, exacerbated by rolling over in bed or certain activities. - Uncertain if pain is muscular or related to previous back surgery involving a rib and screw. - History of scoliosis, potentially contributing to muscle stress and pain. - Weight gain since back surgery, possibly worsening symptoms. - Recent cat bite, previously required antibiotics and rabies shots, current bite less severe. Social History - Reports weight gain since back surgery, attempting to manage weight by reducing intake of pastries, pasta, and carbohydrates. Review of Systems - Musculoskeletal: Reports pain in the side, exacerbated by movement. - General: Reports weight gain since back surgery. Physical Exam General: Cooperative and healthy appearing Nutritional Appearance: Well nourished Orientation/consciousness: Patient oriented x3 Limitations: No limitations Head: Normal to inspection General: Appearance normal, both eyes and all related structures Neck: Normal visual inspection Chest: Normal palpation of entire chest wall Respiratory: N ormal respiratory effort Neurology: Patient oriented x3, but reports difficulty sleeping due to pain and muscle issues. Results Plan 1. Musculoskeletal Pain - Prescribed cyclobenzaprine for muscle relaxation and to aid sleep. - Recommended physical therapy to strengthen muscles and alleviate pain. 2. Scoliosis - Advised to consult with a specialist for further evaluation. 3. Cat Bite - Previous bites required antibiotics and rabies shots; current bite less severe, no immediate treatment discussed. Discussion Notes I discussed with the patient the use of cyclobenzaprine to help with muscle relaxation and sleep, advising her to take it one hour before bedtime and adjust the dosage if necessary. I recommended physical therapy to strengthen muscles and alleviate pain, and advised her to consult with a specialist regarding her scoliosis. We also reviewed her history of cat bites, noting that previous incidents required antibiotics and rabies shots, but the current bite was less severe. Patient Instructions - Take cyclobenzaprine one hour before bedtime. If too strong, reduce the dosage. - Use a heating pad at night to help with muscle relaxation. - Attend physical therapy sessions as scheduled. - Follow up with a specialist for scoliosis evaluation. Medications: Refilled cyclobenzaprine 10 mg PO BEDTIME 30 tabs 0RF lorazepam 1 mg PO DAILY 30 tabs 0RF F41.9 - Anxiety disorder, unspecified
[2025-04-19 13:11] VITALS: BP 130/76; PULSE 86; TEMP 36.3; O2SAT 99; BMI 24.4
== END 2025-04-19 14:27 | disposition home or self-care (01) ==
PROVIDERS: PCP Internal Medicine; Visit Provider Internal Medicine
DX: M54.50 Low back pain, unspecified (principal)

== ENCOUNTER → 2025-04-19 13:04 | Outpatient (BNVA) | payer MEDICARE, MEDICAID, SELFPAY | PROVIDERS: PCP Internal Medicine; Visit Provider Internal Medicine | DX: E11.9 Type 2 diabetes mellitus without complications (principal); M54.50 Low back pain, unspecified; M41.9 Scoliosis, unspecified; F41.9 Anxiety disorder, unspecified | CPT/HCPCS: 99212 ==

== ENCOUNTER 2025-05-03 15:16 | Outpatient (AMB) | payer MEDICARE, MEDICAID, SELFPAY ==
[2025-05-03 15:19] VITALS: BP 142/84; PULSE 94; TEMP 36.3; O2SAT 97; BMI 24.5
--- NOTE | 2025-05-03 15:19 | A.OFFPC_ITS ---
Vital Signs 05/03/25 15:19 Height 5 ft 5 in Weight 147 lb BMI 24.5 BP 142/84 H Blood Pressure Location Lt brachial Position Sitting Pulse 94 Pulse Source Pulse Oximeter Temp 97.3 F Temp Source Temporal Artery Scan Pulse Oximetry (%) 97 Oxygen Delivery Method Room Air Intake Visit Reasons: low back pain Allergies codeine Allergy (Verified 05/03/25 15:22) Unknown Medication List - Last Reconciled 05/03/25 by Farrah Shannon PA-C alendronate 70 mg PO QWEEK cholecalciferol (vitamin D3) 25 mcg PO DAILY cyclobenzaprine 10 mg PO BEDTIME docusate sodium (Colace) 100 mg PO BID PRN loratadine 10 mg PO DAILY lorazepam 1 mg PO DAILY metformin ER 750 mg PO DAILY simvastatin 10 mg PO DAILY Tobacco use date assessed: 05/03/25 Fall risk assessment: No Falls in past year Last assessed Fall Risk: 05/03/25 Dental Screening Dental Screen Date: 05/03/25 Did you have a dental visit in the last 12 months?: Yes Did you have a dental problem in the last 6 months where you did not have access to dental care?: No Was dental information given to patient?: Patient has dentist HPI low back pain HPI Details 75-year-old female with past medical his tory of diabetes mellitus, constipation, hyperlipidemia, anxiety, osteoporosis last seen 04/[address] Colmenares coming in for acute problem. Presenting with musculoskeletal pain. The pain is localized to the back and exacerbated by twisting and bending movements. The pain has been present for over a month and has worsened over time. The patient has a history of scoliosis surgery performed in 2015, which may contribute to her current symptoms. She reports weight gain since the surgery, which she believes exacerbates her back pain. The patient has not been taking prescribed muscle relaxers due to side effects of drowsiness. She is scheduled to see a back specialist on May 17 for further evaluation. She denies any urinary symptoms such as dysuria, hematuria, or fever. The patient has a history of kidney stones but does not believe her current symptoms are related to this. FORMERLY [facility], [facility]1983 Medical History Scoliosis Low back pain Cat bite of right lower leg Age-related osteoporosis without current pathological fracture Knee pain Diabetes Constipation Meningioma Hyperlipidemia Anxiety Surgical History History of tooth extraction History of root canal procedure Encounter for orthopedic aftercare following scoliosis surgery History of ureter stent History of vein stripping History of partial hysterectomy History of colonoscopy (~07/06/23) Status post breast reduction Family History Father No problems noted. Mother Stroke Cancer Brother S/P triple vessel bypass Blind Brother Afib Daughter Bipolar 1 disorder Mental problem Family/Other FH: mental illness Social History Housing: House Alcohol intake: current Alcohol intake frequency: does not drink Patient Tobacco Use Status: Never used Tobacco e-Cigarette/Vaping Use: Never Used Second Hand Smoke Exposure: Yes service: No Current occupational status: retired Cognitive needs: No Hearing needs: No Vision needs: No Questionnaire PHQ-9 Over the last 2 weeks, how often have you been bothered by any of the following problems? 1. Little interest or pleasure in doing things: not at all 2. Feeling down, depressed, or hopeless: not at all 3. Trouble falling or staying asleep, or sleeping too much: more than half the days 4. Feeling tired or having little energy: more than half the days 5. Poor appetite or overeating: not at all 6. Feeling bad about yourself - or that you are a failure or have let yourself or your family down: not at all 7. Trouble concentrating on things, such as reading the newspaper or watching television: not at all 8. Moving or speaking so slowly that other people could have noticed. Or the opposite - being so fidgety or restless that you have been moving around a lot more than usual: not at all 9. Thoughts that you would be better off or of hurting yourself in some way: not at all Total score: 4 Depression Screening Interpretation: Positive Depression Screening Done: Yes Source: Developed by Drs. Candelario Chun, Erika Galeas, Handy Hogan and colleagues, with an educational amisha from [employer]. Thrive Questionnaire Date Thrive assessed: 03/22/25 I am a: Patient What is your living situation today?: I have a steady place to live Within the past 12 months, did the food you bought not last and you didn't have the money to get more?: Never true Within the past 12 months, did you worry whether your food would run out before you got money to buy more?: I choose not to answer this question Do you have trouble paying for medicines?: No Do you have trouble getting transportation to medical appointments?: No Do you have trouble paying your heating and electricity bill?: No Do you have trouble taking care of your child, family member or friend?: No Do you have trouble with day-to-day activities such as bathing, preparing meals, shopping, managing finances, etc.?: No Are you currently unemployed and looking for a job?: I choose not to answer this question Are you interested in more education?: No Please select the resources that you would like help with: None Currently or been in a relationship where the following occur: No concerns reported THRIVE Score: 0 AUDIT C Alcohol Use Questionnaire (AUDIT-C) 1. How often do you have a drink containing alcohol?: Never 3. How often do you have six or more drinks on one occasion?: Never Total Score: 0 LYSSA-7 AMB Questionnaire LYSSA-7 Date LYSSA - 7 assessed: 02/15/25 Feeling nervous, anxious, or on edge: 3 = Nearly every day Not being able to stop or control worryin = More than half the days Worrying too much about different things: 2 = More than half the days Trouble relaxin = More than half the days Being so restless that it is hard to sit still: 2 = More than half the days Becoming easily annoyed or irritable: 1 = Several days Feeling afraid as if something awful might happen: 2 = More than half the days Total LYSSA-7 score (0-4 normal; 5-9 mild; 10-14 moderate; 15-21 severe): 14 Source: Developed by Drs. Candelario Chun, Erika Galeas, Handy Hogan and colleagues, with an educational amisha from [employer]. Review of Systems Const Denies body aches, Denies chills, Denies fever(s), Denies headache(s) and Denies poor appetite Eyes Reports no additional complaints ENT Denies dizziness and Denies headache(s) Card Denies chest pain, Denies lightheadedness and Denies dyspnea Resp Denies cough and Denies dyspnea GI Denies abdominal pain, Denies nausea and Denies vomiting Details: No burning or pain with urination. No polyuria Musc Reports no additional complaints and Denies abnormal gait Skin/Breast Reports system reviewed and no additional complaints, except as documented Neuro Denies abnormal gait, Denies dizziness and Denies headache(s) Psych Reports no additional complaints Physical exam (Primary Care) Vital Signs: Last Vital Signs Temp 97.3 F 05/03/25 15:19 Pulse 94 05/03/25 15:19 BP 142/84 H 05/03/25 15:19 Pulse Ox 97 05/03/25 15:19 Oxygen Delivery Method Room Air 05/03/25 15:19 BMI result Body Mass Index 24.5 Tobacco/Smoking Status: Tobacco use Status Tobacco use date assessed 05/03/25 05/03/25 15:25 Patient Tobacco Use Status Never used Tobacco 05/03/25 15:25 e-Cigarette/Vaping Use Never Used 05/03/25 15:25 PHQ-9: PHQ-9 Score PHQ-9: Total score 4 05/03/25 16:57 Depression Screening Interpretation: Positive Thrive Assessment: Date of Thrive Assessment Date Thrive assessed 03/22/25 05/03/25 15:25 Currently or been in a relationship where the following occur: No concerns reported Const General: cooperative, healthy appearing, comfortable and no acute distress Orientation/consciousness: patient oriented x3 HENMT Head: Yes normocephalic Ears: hearing grossly normal bilaterally General nose exam: Normal external nose present Eyes General: appearance normal, both eyes and all related structures Conjunctivae: conjunctivae normal Neck Neck: Yes full ROM and Yes no lymphadenopathy Resp Effort & Inspection: normal respiratory effort Auscultation: clear to auscultation bilaterally, no crackles, no rales, no rhonchi and no wheezes Cardio Rate: regular rate Rhythm: regular rhythm GI Palpation (GI): Soft to palpation, not firm, nontender, no guarding and not rigid General: Yes no CVA tenderness Back/Spine/Pelvis Other: Tenderness to palpation over left paraspinal muscles. Negative straight leg raise bilaterally. No tenderness to palpation over entirety of spine Back: no CVA tenderness Skin General skin exam: no rashes or lesions noted Neuro General: patient oriented x3 Gait exam (Neuro): Normal gait present Extrem General: Yes normal to inspection, Yes full ROM and No edema Psych Affect: normal affect Attitude: cooperative Insight: Good insight present (Psych) Judgement: Good judgement present (Psych) Results AMB Urinalysis Dipstick UR Leukocytes Negative Last Edit by Isabel Iglesias CMA on 05/03/25 16:29 UR Nitrite Negative Last Edit by Isabel Iglesias CMA on 05/03/25 16:29 UR Urobilinogen Normal Last Edit by Isabel Iglesias CMA on 05/03/25 16:29 UR Protein Last Edit by Isabel Iglesias CMA on 05/03/25 16:29 UR Ph 5.5 Last Edit by Isabel Iglesias CMA on 05/03/25 16:29 UR Blood Trace Last Edit by Isabel Iglesias CMA on 05/03/25 16:29 UR Specific [place] 1.030 Last Edit by Isabel Iglesias CMA on 05/03/25 16:29 UR Ketone Negative Last Edit by Isabel Iglesias CMA on 05/03/25 16:29 UR Bilirubin Last Edit by Isabel Iglesias CMA on 05/03/25 16:29 UR Glucose Last Edit by Isabel Iglesias CMA on 05/03/25 16:29 Results Reviewed Results Reviewed: Laboratory Last Values Urine pH (Clinic) 5.5 05/03/25 16:27 Specific [place] (Clinic) 1.030 05/03/25 16:27 Ur Ketones (Clinic) Negative 05/03/25 16:27 Urine Blood (Clinic) Trace 05/03/25 16:27 Urine Nitrite Negative 05/03/25 16:27 Urobilinogen (Clinic) Normal 05/03/25 16:27 Leukocyte Esterase (Clinic) Negative 05/03/25 16:27 Coding Level of Care Code Est Pt Level 3 (44128) Diagnoses Low back pain M54.50 Nephrolithiasis N20.0 Hematuria R31.9 Assessment & Plan Assessment & Plan (1) Low back pain: Code(s): M54.50 - Low back pain, unspecified Category: Medical Plan: Patient having a history of low back pain since her scoliosis surgery. I did discuss with the patient this is likely muscular given the worsening of pain with positional movements. Low suspicion for urinary tract infection at this time as her urinalysis is negative for leukocytes but positive for blood and patient is not having urinary symptoms. Concern for possible kidney stone as She does have a known history and plan to obtain imaging to rule out kidney stone presence. She is also seeing her back specialist in [place] May 17. In the meantime for the pain I recommend the use of muscle relaxer, lidocaine patches, heat, massage and Tylenol as needed. I did also recommend reaching out to physical therapy to schedule an appointment as well. (2) Nephrolithiasis: Code(s): N20.0 - Calculus of kidney Category: Medical Plan: See above plan (3) Hematuria: Code(s): R31.9 - Hematuria, unspecified Category: Medical Plan: Plan to obtain imaging to rule out kidney stone at this time. If negative consider urine cytology. Plan The plan for the musculoskeletal pain involves avoiding heavy lifting and engaging in physical therapy to address muscle spasms and strengthen the back. The patient is advised to use anti-inflammatory medications and a different muscle relaxer to manage pain without causing excessive drowsiness. Wes tionally, she is encouraged to perform gentle stretching exercises and consider using an inversion machine at home to alleviate symptoms. The patient is advised to increase fluid intake and monitor for any urinary symptoms. This note was constructed using voice recognition software. While every effort has been made to ensure accuracy and medical billing supervisor, still areas may have been included sometimes these areas may affect the content or meeting of the given symptoms. Total time spent caring for the patient today was 30 minutes. This includes time spent before the visit reviewing the chart, time spent during the visit, and time spent after the visit and documentation. Patient was informed and verbally consented to the use of an ambient scribe for clinic note documentation during this visit. Orders: Orders AMB Urinalysis Dipstick Today Z13.9 - Encounter for screening, unspecified Medications: New tizanidine 2 mg PO Q8H PRN 30 tabs 0RF muscle spasticity Discontinued cyclobenzaprine Discontinued Reason: Patient no longer taking 10 mg PO BEDTIME 30 tabs 0RF
--- OUTSIDE RECORDS SUMMARY | 2025-05-03 15:19 | XMS_ITS | Data Portability ---
Author Organization [place] [facility] Address [address] [place] [id number] Care Team Providers Care Steam Hoist Operator Name Role Phone MONTEZ WALL Referring Provider [...] tablet,jazmine h resistant,e xtended release 2015 016 [email or web address] Not available 3 16:56:39 Dilaudid 2 mg [...] tablet,jazmine h resistant,e xtended release 2015 016 [email or web address] Not available 3 16:56:39 Dilaudid 2 mg [...] 16:57:48 Ativan 1 mg tablet 2015 016 [email or web address] Not available 6 17:05:40 simvastatin 10 mg tablet 2015 016 [email or web address] Not available 6 17:05:38 Bactrim DS 800 mg-160 mg tablet 2015 016 [email or web address] Not available 6 17:29:43 nystatin 100,000 unit/mL oral suspension 2015 016 [email or web address] Not available 6 17:29:43 OxyContin 10 mg tablet,jazmine h resistant,e xtended release 2015 016 [email or web address] Not available 3 16:56:38 Dilaudid 2 mg [...] By Organization Details Last Modified Time 04/03/2016 [id number] Discharge to [facility] with meds and services on 04/04/16 . [...] Recorded Time Spinal stenosis of lumbar region 57932416 Active Karma Gloria , [employer] [address] [place] [address], [phone], [facility] 15:05:49 Scoliosis deformity of spine 328518847 Active Karma Gloria , [employer] [address] [place] [address], [address], [facility] - [facility] 15:05:49 Candidiasis of mouth 88328721 Active aKrma Gloria , [employer] [address] [place] [address], [phone], [facility] 15:00:47 Urinary tract infectious disease 91784943 Active Karma Gloria , [employer] [address] [place] [address], [address], [facility] 15:05:49 Anxiety 30872266 Active Karma Gloria , [employer] [address] [place] [address], [phone], [facility] - [facility] 15:05:49 Hyperlipidemia 37178702 Active Karma Gloria , [employer] [address] [place] [address], [address], [facility] 15:00:47 Gastroesophage al reflux disease 019271561 Active Karma Gloria , [employer] [address] [place] [address], [phone], [facility] 15:00:47 Medullary sponge kidney without nephrocalcinos is 055768241 Active Karma Gloria , [employer] [address] [place] [address], [address], [facility] 15:00:47 Problem Notes None recorded. Medical Equipment None Reported. Allergies Allergen ID Allergen Name Allergen Category Reaction Reaction Severity Criticality Documentation Date Start Date Code Code System Note Provider Name and Address Organization Details Recorded Time 27232 codeine medicatio n Not available Not available Not available 03/31/2016 2670 RxNorm Karma Gloria , [employer] [address] [place] [address], [phone], [facility] 6 16:50:58 Medications [...] lable Vitals Date Recorded Heart rate Systolic And Diastolic Provider Name and Address Organization Details Last Updated DateTime 03/31/2016 88 /min 135/62 mm[Hg] Karma Gloria, [employer] [address] [place] [address], [phone] 03/31/2016 17:00:11 Date Recorded Heart rate Oxygen saturation Oxygen saturation in Arterial blood by Pulse oximetry Systolic And Diastolic Provider Name and Address Organization Details Last Updated DateTime 04/01/2016 103 /min 98 % 98 % 113/65 mm[Hg] Tato Alvarado MD [address] [place] [address], [phone] [facility] 6 16:43:47 Date Recorded Systolic And Diastolic Provider Name and Address Organization Details Last Updated DateTime 04/02/2016 111/73 mm[Hg] Karma Gloria NP [address] [place] [address], [phone] 04/05/2016 15:03:01 Social History Question Answer Notes LastModified by Organizat ion Details LastModified Time Tobacco Smoking Status Never Smoker Not Available [facility] 09/03/2020 03:36:16 How Much Tobacco Do You Smoke? No [id number] Information not available 09/03/2020 Sex: Unknown Functional Status None recorded. Mental Status None recorded. Family History Nothing Reported. Medical History No medical history recorded. Gynecological HistoryNo gynecological history recorded. Obstetrics History GPAL:G 0 P 0 0 0 0 Past Encounters Encounter ID Performer Location Encounter Start Date Encounter Closed Date Diagnosis/Indication Diagnosis SNOMED-CT Code Diagnosis ICD10 Code Diagnosis Note [id number] Karma Gloria NP [facility] [address] [place] [address] 03/31/2016 16:42:57 03/31/2016 17:08:42 Spinal stenosis of lumbar region 24473602 M48.06 Would like to be awoken during the night so will schedule dilaudid ATC Q3H Scoliosis deformity of spine 192298205 Q67.5 Has noticed that she is straighter than pre op Candidiasis of mouth 797 11073 B37.9 Urinary tr act infectious disease 98373228 N39.0 Continue for 7 days Anxiety 72780016 F41.9 Hyperlipidemia 12023374 E78.5 Gastroesop hageal reflux disease 893699219 K21.9 [id number] Tato Alvarado MD [facility] [address] [address] 04/01/2016 08:27:25 04/01/2016 16:59:55 Spinal stenosis of lumbar region 45219555 M48.06 Would like to be awoken during the night so will schedule dilaudid ATC Q3H Scoliosis deformity of spine 828605084 Q67.5 Has noticed that she is straighter than pre op Candidiasis of mouth 797 63910 B37.9 Tiny residual noted, but improving Urinary tr act infectious disease 20577719 N39.0 Continue for 7 days Anxiety 78188276 F41.9 Hyperlipidemia 20864053 E78.5 Gastroesop hageal reflux disease 513014373 K21.9 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 I think it unlikely that her back pain is causing by the UTI Anxiety 42175774 F41.9 [id number] Karma Gloria NP [facility] [address] [address] 04/03/2016 08:58:45 04/03/2016 17:52:24 Spinal stenosis of lumbar region 89654875 M48.06 IS taking dilaudid 6 mg ATC Q3H. I have given her a script fro another #90 tabs. She also has #7 tramadol here and I will give her a script for another #30. She has enough oxycontin to complete the taper. Scoliosis deformity of spine 466845066 Q67.5 Has noticed that she is straighter than pre op Candidiasis of mouth 797 57439 B37.9 Tiny residual noted, but improving Urinary tr act infectious disease 55807071 N39.0 Last dose of bactrim today. Will repeat urine culture at her request Anxiety 98772644 F41.9 Has #14 ativan that she will take home with her. 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 nephrocalcinosis 119309965 Q61.5 Has hx of stones in past Health Concerns Section Related Observation LastModified by Organization Detai ls LastModified Time None Recorded Concern Status LastModified by Organization Details LastModified Time None Recorded Advance Directives Directive None Recorded Payers Insurance Date Sequence Insurance Name Policy Number Policy Muñiz Covered Member ID Muñiz Member ID Guarantor Name 04/03/2016 1 [place] [employer] Mellissa Ralphrowena [id number] Mellissa Edmondson 04/03/2016 2 [place] [employer] Mellissa A Debo [id number] Mellissa Edmondson 06/10/2016 2 [place] Mellissa Garrow [id number] Mellissa Debo Notes Date Note Type Note Provider Name and Address Organization Details Recorded Time 03/31/2016 text/html This 65 yo woman was admitted to [facility] on 03/31/16 from [facility] where she underwent scoliosis reducing surgery performed [...] and she was repleted Karma Gloria NP [address] [place], [address], [facility] 03/31/2016 17:07:59 04/01/2016 text/html This 65 yo woman was admitted to on 03/30 for STR after spine surgery for scoliosis done on 03/24 at [facility] by Dr. Wall. She had extensive procedures [...] HLD, scoliosis, and anxiety. Tato Alvarado MD [address] [place], [address], [facility] - [facility] 04/01/2016 16:59:33 04/02/2016 [...] being treated with bactrim Karma Gloria NP [address] [place] [address], [phone], [facility] 04/05/2016 15:06:13 OBGyn Episode No OBEpisode recorded.
== END 2025-05-03 16:32 | disposition home or self-care (01) ==
LOC: HO.HMCH 15:17
PROVIDERS: PCP Internal Medicine
DX: Z13.9 Encounter for screening, unspecified (principal)

== ENCOUNTER → 2025-05-03 15:16 | Outpatient (BNVA) | payer MEDICARE, MEDICAID, SELFPAY | PROVIDERS: PCP Internal Medicine | DX: E11.9 Type 2 diabetes mellitus without complications (principal); K59.00 Constipation, unspecified; E78.5 Hyperlipidemia, unspecified; F41.9 Anxiety disorder, unspecified; M81.0 Age-related osteoporosis without current pathological fracture; M54.50 Low back pain, unspecified; N20.0 Calculus of kidney; R31.9 Hematuria, unspecified | CPT/HCPCS: 81002; 96127; 99212 ==

== ENCOUNTER 2025-07-09 11:38 | Outpatient (REF) | payer MEDICARE, MEDICAID, SELFPAY ==
--- NOTE | ~2025-07-09 | US_ITS ---
EXAMINATION: US RETROPERITONEAL LIMITED (RENAL ONLY) CLINICAL INFORMATION: Calculus of kidney.. COMPARISON: Correlated to CT dated October 01, 2021. TECHNIQUE: Real-time ultrasound kidneys using grayscale technique. FINDINGS: RIGHT KIDNEY: 12 x 4 x 6 cm (SAG x AP x TRV). Volume: 154 cc. Normal echotexture. Normal renal cortical thickness. No gross hydronephrosis. There is a 1.8 cm well-defined round exophytic anechoic lesion in the lower pole without septations or nodular components were flow on color Doppler interrogation. LEFT KIDNEY: 13 x 6 x 5 cm (SAG x AP x TRV). Volume: 213 cc. Normal echotexture. Normal renal cortical thickness. No hydronephrosis. There is a 7 mm hyperechoic structure at the corticomedullary junction, upper pole. US/US renal BI IMPRESSION: 7 mm nonobstructing calculus, left kidney. 1.8 cm exophytic cyst, right kidney. No gross hydronephrosis.. Electronically signed by: Tonny Cerna MD 07/09/2025 12:05 PM EDT
== END 2025-07-09 11:39 | disposition home or self-care (01) ==
LOC: HO.HMGCX 11:38
PROVIDERS: PCP Internal Medicine; Visit Provider Internal Medicine
DX: N20.0 Calculus of kidney (principal)
CPT/HCPCS: 76775

== ENCOUNTER → 2025-07-09 11:41 | Outpatient (BNV) | payer MEDICARE, MEDICAID, SELFPAY | PROVIDERS: PCP Internal Medicine; Visit Provider Radiology Diagnostic Radiology | DX: N20.0 Calculus of kidney (principal) | CPT/HCPCS: 76775 ==

== ENCOUNTER 2025-09-19 08:43 | Outpatient (AMB) | payer MEDICARE, MEDICAID, SELFPAY ==
--- NOTE | 2025-09-19 08:55 | A.OFFPC_ITS ---
Vital Signs 09/19/25 09:08 09/19/25 09:14 Height 5 ft 5 in Weight 145 lb 8 oz BMI 24.2 BP 160/80 H 140/70 H Blood Pressure Location Lt brachial Lt brachial Position Sitting Sitting Pulse 73 Pulse Source Pulse Oximeter Temp 97.1 F Temp Source Temporal Artery Scan Pulse Oximetry (%) 98 Oxygen Delivery Method Room Air Intake Visit Reasons: 6mth f/u - see comments Intake Note: Patient is here to follow up on DM, Low back pain, HLD. Assistant Community Manager Required: No Packaging Sales: Not Required per policy Accompanied by: Self / Same As Patient Allergies codeine Allergy (Verified 09/19/25 09:08) Unknown Tobacco use date assessed: 09/19/25 Fall risk assessment: No Falls in past year Last assessed Fall Risk: 09/19/25 Dental Screening Dental Screen Date: 05/03/25 HPI HPI Comments History of Present Illness Details History of Present Illness - The patient is a 75-year-old female pr esenting for management of chronic conditions and fatigue. - She reports worsening fatigue and inso mnia, typically sleeping only 4 hours before waking up. - Regarding her musculoskeletal issues, a consultation in [place] for her scoliosis revealed that her previous back surgery site is stable, with some new age-related arthritis and a slight spinal tilt, which was deemed not concerning at the time. - She reports the new onset of right-scott ed sciatica, which she manages with stretching exercises. - For osteoporosis, the patient is on we ekly alendronate and vitamin D. - She notes that after a tooth extractio n nearly two years ago, her dentist questioned the continued necessity of alendronate, suggesting it might be stopped after five years of use. - The patient's blood work from April borderline glucose levels. - She is managing prediabetes with once- daily metformin and hyperlipidemia with once-daily simvastatin. - A muscle relaxant, tizanidine, prescri bed for sleep does not help. - She recently saw an web analytics developer fo r watery eyes and was diagnosed with dry eyes. - She also underwent a venous procedure on one leg about two and a half weeks ago in [place]. Social History - The patient reports experiencing a sig nificant amount of stress. - She provides care for her blind brothe nina, visiting him three times a week to assist with shopping, medications, and meals. - Her daughter is bipolar and recently u nderwent a shoulder replacement, requiring the patient to drive her to [place] for appointments. - She desires to lose weight, mainly fro m her abdomen, and acknowledges that her diet, including carbohydrates and sweets, is a contributing factor. - She reports trying to eat - like brown bread and does not eat past a daily. - She acknowledges she should walk more often. - The patient has received her influenza vaccine. Results - Labs: Recent HbA1c was 6.5%. - Tests and Diagnostics: A recent eye ex am for watery eyes revealed dry eyes. - Tests and Diagnostics: Previous back X -rays showed the surgical site was doing well, with some arthritis noted. [facility] Medical History (Updated 09/19/25 @ 09:54 by Dean Colmenares MD) Osteoporosis Scoliosis Low back pain Cat bite of right lower leg Age-related osteoporosis without current pathological fracture Knee pain Diabetes Constipation Meningioma Hyperlipidemia Anxiety Surgical History History of tooth extraction History of root canal procedure Encounter for orthopedic aftercare following scoliosis surgery History of ureter stent History of vein stripping History of partial hysterectomy History of colonoscopy (~07/06/23) Status post breast reduction Family History Father No problems noted. Mother Stroke Cancer Brother S/P triple vessel bypass Blind Brother Afib Daughter Bipolar 1 disorder Mental problem Family/Other FH: mental illness Social History Housing: House Alcohol intake: current Alcohol intake frequency: does not drink Patient Tobacco Use Status: Never used Tobacco e-Cigarette/Vaping Use: Never Used Second Hand Smoke Exposure: Yes service: No Current occupational status: retired Cognitive needs: No Hearing needs: No Vision needs: No Questionnaire Thrive Questionnaire Date Thrive assessed: 03/22/25 I am a: Patient What is your living situation today?: I have a steady place to live Within the past 12 months, did the food you bought not last and you didn't have the money to get more?: Never true Within the past 12 months, did you worry whether your food would run out before you got money to buy more?: I choose not to answer this question Do you have trouble paying for medicines?: No Do you have trouble getting transportation to medical appointments?: No Do you have trouble paying your heating and electricity bill?: No Do you have trouble taking care of your child, family member or friend?: No Do you have trouble with day-to-day activities such as bathing, preparing meals, shopping, managing finances, etc.?: No Are you currently unemployed and looking for a job?: I choose not to answer this question Are you interested in more education?: No Please select the resources that you would like help with: None Currently or been in a relationship where the following occur: No concerns reported THRIVE Score: 0 LYSSA-7 AMB Questionnaire LYSSA-7 Date LYSSA - 7 assessed: 02/15/25 Source: Developed by Drs. Candelario Chun, Erika Galeas, Handy Hogan and colleagues, with an educational amisha from [employer]. Review of Systems Narrative Review of Systems - General: Reports feeling tired all the time. - Eyes: Reports excessive tearing, which an eye doctor attributed to dry eyes. - Musculoskeletal: Reports some back pain attributed to arthritis. - Neurological: Reports new onset of sciatica. - Psychiatric: Reports significant stress, anxiety, and insomnia, sleeping only four hours most nights. Physical exam (Primary Care) Vital Signs: Last Vital Signs Temp 97.1 F 09/19/25 09:08 Pulse 73 09/19/25 09:08 BP 140/70 H 09/19/25 09:14 Pulse Ox 98 09/19/25 09:08 Oxygen Delivery Method Room Air 09/19/25 09:08 BMI result Body Mass Index 24.2 Tobacco/Smoking Status: Tobacco use Status Tobacco use date assessed 09/19/25 09/19/25 09:15 Patient Tobacco Use Status Never used Tobacco 09/19/25 08:55 e-Cigarette/Vaping Use Never Used 09/19/25 08:55 Thrive Assessment: Date of Thrive Assessment Date Thrive assessed 03/22/25 09/19/25 08:55 Currently or been in a relationship where the following occur: No concerns reported Narrative Physical Exam General: Appearance normal, both eyes and all related structures, eyes are watery due to dry eyes. Nutritional Appearance: Well nourished Orientation/consciousness: Patient oriented x3 Limitations: No limitations Head: Normal to inspection Neck: Normal visual inspection Chest: Normal palpation of entire chest wall Respiratory: Normal respiratory effort Neurology: Patient oriented x3 Results AMB Hemoglobin A1c AMB Hemoglobin A1c 6.5 % Last Edit by BETO Valencia on 09/19/25 09:19 Results Reviewed Results Reviewed: Laboratory Last Values Hgb A1c (Clinic) 6.5 % (4.0-6.0) H 09/19/25 08:55 Coding Level of Care Code Est Pt Level 4 (17247) Complex EM visit Add On G2211 Diagnoses Osteoporosis M81.0 Assessment & Plan Assessment & Plan (1) Osteoporosis: Code(s): M81.0 - Age-related osteoporosis without current pathological fracture Category: Medical Plan Plan - Order a DEXA scan to evaluate bone density for osteoporosis. - Depending on the DEXA scan results, alendronate may be discontinued. - Discontinue the muscle relaxant (tizanidine) as it is not effective for sleep. - Continue current management for scoliosis and back pain, as specialist evaluation suggests not much more can be done. - For sciatica, the patient will continue self-management with stretching and will contact Dr. Greer for a possible cortisone injection if symptoms worsen. - Continue metformin for prediabetes and simvastatin for hyperlipidemia. - Advised patient that weight loss is not medically necessary, but encouraged dietary modifications (e.g., reducing sweets) and increased walking for general wellness. - For insomnia and anxiety, continue lorazepam as needed and consider [id number] options. - Schedule a follow-up appointment in six months. Discussion Notes I discussed the patient's chronic conditions and overall health. I explained that her prediabetes is under good control, noting her recent HbA1c of 6.5%. We talked about her osteoporosis, and I will be ordering a DEXA scan; if the results are favorable, we can consider stopping the alendronate. We reviewed her scoliosis and the specialist's opinion that there is limited intervention available. I reassured her that she does not medically need to lose weight but supported her goals of healthier eating and more activity. For her insomnia and anxiety, I advised her to continue using lorazepam as needed and suggested she could try [id number]-cob-scuezyr remedies. The plan is to follow up in six months. Patient Instructions - An order will be placed for you to get a bone density (DEXA) scan. - We may stop your alendronate medication if the bone scan results are good. - You can stop taking the muscle relaxant, as it is not helping you sleep. - Continue taking metformin, simvastatin, and vitamin D as prescribed. - For your sciatica, continue doing your stretching exercises. - If the pain gets much worse, call Dr. Greer's office. - You can continue to use lorazepam when you need it for anxiety or sleep. - You can also try xkld-eih-iayicpa sleep aids. - While you do not need to lose weight for medical reasons, you are encouraged to continue efforts to eat healthy, reduce sweets, and walk more. - Please schedule a follow-up visit for six months. Orders: Orders XR DEXA axial skeleton Today M81.0 - Age-related osteoporosis without current pathological fracture AMB Hemoglobin A1c Today E11.9 - Type 2 diabetes mellitus without complications Medications: Discontinued tizanidine Discontinued Reason: Doctor's Order 2 mg PO Q8H PRN 30 tabs 0RF muscle spasticity
[2025-09-19 09:08] VITALS: BP 160/80; PULSE 73; TEMP 36.2; O2SAT 98; BMI 24.2
[2025-09-19 09:14] VITALS: BP 140/70
--- OUTSIDE RECORDS SUMMARY | 2025-09-19 16:25 | XMS_ITS | Data Portability ---
Author Organization [place] [facility], [facility] Address [address] [place] [phone] Care Team Providers Care Balance Wheel Arm Burnisher Name Role Phone MONTEZ WALL Referring Provider [...] tablet,jazmine h resistant,e xtended release 2015 016 [email or web address] Not available 3 16:56:39 Dilaudid 2 mg [...] tablet,jazmine h resistant,e xtended release 2015 016 [email or web address] Not available 3 16:56:39 Dilaudid 2 mg [...] tablet,jazmine h resistant,e xtended release 2015 016 [email or web address] Not available 3 16:56:38 Dilaudid 2 mg [...] By Organization Details Last Modified Time 04/03/2016 [id number] Discharge to [facility] with meds and services on 04/04/16 . [...] Recorded Time Spinal stenosis of lumbar region 78919022 Active Karma Gloria , MATHEMATICAL ENGINEER [address] [place] [address], [address], [facility] 15:05:49 Scoliosis deformity of spine 379257081 Active Karma Gloria , MATHEMATICAL ENGINEER [address] [place] [address], [address] 1, [facility] 15:05:49 Candidiasis of mouth 18233755 Active Karma Gloria , MATHEMATICAL ENGINEER [address] [place] [address], [address], [facility] 15:00:47 Urinary tract infectious disease 59166595 Active Karma Gloria , MATHEMATICAL ENGINEER [address] [place] [address], [address] 1, [facility] 15:05:49 Anxiety 20835523 Active Karma Gloria , MATHEMATICAL ENGINEER [address] [place] [address], [address] 1, [facility] 15:05:49 Hyperlipidemia 14686279 Active Karma Gloria , MATHEMATICAL ENGINEER [address] [place] [address], [address] 1, [facility] 15:00:47 Gastroesophage al reflux disease 589771496 Active Karma Gloria , MATHEMATICAL ENGINEER [address] [place] [address], [address] 1, [facility] 15:00:47 Medullary sponge kidney without nephrocalcinos is 234035488 Active Karma Gloria , MATHEMATICAL ENGINEER [address] [place] [address], [address] 1, [facility] 15:00:47 Problem Notes None recorded. Medical Equipment None Reported. Allergies Allergen ID Allergen Name Allergen Category Reaction Reaction Severity Criticality Documentation Date Start Date Code Code System Note Provider Name and Address Organization Details Recorded Time 99653 codeine medicatio n Not available Not available Not available 03/31/2016 2670 RxNorm Karma Gloria , MATHEMATICAL ENGINEER [address] [place] [address], [address] 1, [facility] 6 [...] 03/31/2016 88 /min 135/62 mm[Hg] Karma Gloria, MATHEMATICAL ENGINEER [address] [place] [address], [address] 03/31/2016 17:00:11 Date Recorded Heart rate Oxygen saturation Oxygen saturation in Arterial blood by Pulse oximetry Systolic And Diastolic Provider Name and Address Organization Details Last Updated DateTime 04/01/2016 103 /min 98 % 98 % 113/65 mm[Hg] Tato Alvarado MD [address] [place] [address], [phone] [facility] 6 16:43:47 Date Recorded Systolic And Diastolic Provider Name and Address Organization Details Last Updated DateTime 04/02/2016 111/73 mm[Hg] Karma Gloria NP [address] [place] [address], [address] 04/05/2016 15:03:01 Social History Question Answer Notes LastModified by Organizat ion Details LastModified Time Tobacco Smoking Status Never Smoker Not Available [facility] 09/03[facility]2020 03:36:16 How Much Tobacco Do You Smoke? No [id number] Information not available 09/03/2020 Sex: Unknown Functional Status None recorded. Mental Status None recorded. Family History Nothing Reported. Medical History No medical history recorded. Gynecological HistoryNo gynecological history recorded. Obstetrics History GPAL:G 0 P 0 0 0 0 Past Encounters Encounter ID Performer Location Encounter Start Date Encounter Closed Date Diagnosis/Indication Diagnosis SNOMED-CT Code Diagnosis ICD10 Code Diagnosis IMO Codes Diagnosis Note [id number] Karma Gloria NP [facility] [address] [place] [address] 03/31/2016 16:42:57 03/31/2016 17:08:42 Spinal stenosis of lumbar region 98812178 M48.06 Would like to be awoken during the night so will schedule dilaudid ATC Q3H Scoliosis deformity of spine 076856937 Q67.5 Has noticed that she is straighter than pre op Candidiasis of mouth 797 80626 B37.9 Urinary tr act infectious disease 20943229 N39.0 Continue for 7 days Anxiety 79149317 F41.9 Hyperlipidemia 52999119 E78.5 Gastroesop hageal reflux disease 677974361 K21.9 [id number] Tato Alvarado MD [facility] [address] [address] 04/01/2016 08:27:25 04/01/2016 16:59:55 Spinal stenosis of lumbar region 44711342 M48.06 Would like to be awoken during the night so will schedule dilaudid ATC Q3H Scoliosis deformity of spine 011127394 Q67.5 Has noticed that she is straighter than pre op Candidiasis of mouth 797 64680 B37.9 Tiny residual noted, but improving Urinary tr act infectious disease 86140930 N39.0 Continue for 7 days Anxiety 29786730 F41.9 Hyperlipidemia 13802316 E78.5 Gastroesop hageal reflux disease 669191433 K21.9 Medullary sponge kidney without nephrocalcinosis 325354791 Q61.5 Has hx of stones in past [id number] [facility] [address] [address] 04/02/2016 10:28:36 04/05/2016 15:07:14 Spinal stenosis of lumbar region 11675058 M48.06 Her function is very good and I have told her that i think it is not more than expected after her surgery Scoliosis deformity of spine 979404423 Q67.5 Has noticed that she is straighter than pre op Urinary tr act infectious disease 94985787 N39.0 Continue Bactrim for a total of7 days. I think it unlikely that her back pain is causing by the UTI Anxiety 20240495 F41.9 [id number] Karma Gloria NP [facility] [address] 04/03/2016 08:58:45 04/03/2016 17:52:24 Spinal stenosis of lumbar region 48291769 M48.06 IS taking dilaudid 6 mg ATC Q3H. I have given her a script fro another #90 tabs. She also has #7 tramadol here and I will give her a script for another #30. She has enough oxycontin to complete the taper. Scoliosis deformity of spine 941952568 Q67.5 Has noticed that she is straighter than pre op Candidiasis of mouth 797 26752 B37.9 Tiny residual noted, but improving Urinary tr act infectious disease 66779393 N39.0 Last dose of bactrim today. Will repeat urine culture at her request Anxiety 66748422 F41.9 Has #14 ativan that she will take home with her. No further script given Hyperlipidemia 61746625 E78.5 Gastroesop hageal reflux disease 045308634 K21.9 Medullary sponge kidney without nephrocalcinosis 901718661 Q61.5 Has hx of stones in past Health Concerns Section Related Observation LastModified by Organization Detai ls LastModified Time None Recorded Concern Status LastModified by Organization Details LastModified Time None Recorded Advance Directives Directive None Recorded Payers Insurance Date Sequence Insurance Name Policy Number Policy Muñiz Covered Member ID Muñiz Member ID Guarantor Name 04/03/2016 1 [place] [employer] Mellissa Ralphrowena [id number] Mellissa Edmondson 04/03/2016 2 [place] [employer] Mellissa A Ralphrow [id number] Mellissa Garrowena 06/10/2016 2 [place] Mellsisa Garrow [id number] Mellissa Debo Notes Date Note Type Note Provider Name and Address Organization Details Recorded Time 03/31/2016 text/html This 65 yo woman was admitted to [facility] on 03/31/16 from [facility] where she underwent scoliosis reducing surgery performed [...] and she was repleted Karma Gloria NP [address] [place] [address], [address], [facility] 03/31/2016 17:07:59 04/01/2016 text/html This 65 yo woman was admitted to on 03/30 for STR after spine surgery for scoliosis done on 5/24 at [facility] by Dr. Wall. She had extensive procedures [...] scoliosis, and anxiety. Tato Alvarado MD [address] [place], [address], [facility] 04/01/2016 16:59:33 04/02/2016 text/html ROS as noted in the HPI We discuss her pain control at length as well as her urinary frequency/urgency. She feels that she is doing well in terms of walking and is taking the opportunity to walk long distances during the day using the walker. -wonders if the radiating back pain is related to her UTI which is currently being treated with bactrim Karma Gloria NP [address] [place] [address], [address], [facility] 04/05/2016 15:06:13 OBGyn Episode No OBEpisode recorded.
== END 2025-09-19 09:35 | disposition home or self-care (01) ==
LOC: HO.HMCH 08:44
PROVIDERS: PCP Internal Medicine; Visit Provider Internal Medicine
DX: M81.0 Age-related osteoporosis without current pathological fracture (principal); E11.9 Type 2 diabetes mellitus without complications

== ENCOUNTER → 2025-09-19 08:43 | Outpatient (BNVA) | payer MEDICARE, MEDICAID, SELFPAY | PROVIDERS: PCP Internal Medicine; Visit Provider Internal Medicine | DX: M81.0 Age-related osteoporosis without current pathological fracture (principal); R53.83 Other fatigue; G47.00 Insomnia, unspecified; M54.31 Sciatica, right side; Z79.899 Other long term (current) drug therapy | CPT/HCPCS: 83036; 99212 ==

== ENCOUNTER 2025-10-23 07:40 | Outpatient (AMB) | payer MEDICARE, MEDICAID, SELFPAY ==
--- OUTSIDE RECORDS SUMMARY | 2025-09-12 05:30 | XMS_ITS | Continuity of Care Document ---
Author Organization [facility] Address [address] [place] [address] Dr [address] [place] [address] Phone Care Team Providers Care Early Childhood Teacher Assistant Name Role Phone Rusty WOODS, DEMETRIA, Candelario SANTANA Unavailable U navailable Procedures Procedure Date Office/Outpt E&M Established 15 Mins- [place] & [place] Advance Directives Directive Yes / No Effective Date File Name Other Directive No 09/12/2025 N/A WARNING:The information contained in this section is historical and is provided for information only and does not constitute a legal document or any assurance that the information is still accurate. Please verify the information with the lucas of the legal document before using it for clinical purposes. Encounters Encounter Description Practice Location Reason(s) For Visit Diagnoses Date Provider Encounter Disposition Office/Outpt E&M Established 15 Mins- [place] & [place] [facility], [address] [place] [address] Dr Webster [address]Suite [place], [id number], [place] tel:[phone] [facility] Type 2 diabetes mellitus without complications Lymphedema, not elsewhere classifiedPru ritus, unspecifiedDi sorder of pigmentation, unspecifiedHe reditary lymphedemaVen ous insufficiency (chronic) (peripheral) Rusty WOODS, ESTHER AUGUSTIN. [address] [facility] [address], [place], [place], [id number] , [place]. tel:[phone] [facility], [address] [place] [address] Dr [address] [place] Dow [place], [id number], tel:[phone] [facility] Chronic venous hypertension (idiopathic) with other complications of left lower extremity Nov- 2- 5 Rusty WOODS RVT, RPVI Robert. [address] [place] [address], [facility] [place] [place] [id number] , [place]. tel: [phone] [facility], [address] [place] [address] Dr Webster [address]SuChago valdez [place], [id number], [place] tel:[phone] [facility] Encounter for follow-up examination after completed treatment for conditions other than malignant neoplasmVaric ose veins of left lower extremity with pain Oct-0 - 5 Rusty WOODS RVT, RPVI Robert. [address] [place] [address], [place], [id number] , [place]. tel: [phone] [facility], [address] [place] [address] Dr Webster [address]SuChago [place]dez [place], [id number], [place] tel:[phone] [facility] Varicose veins of left lower extremity with other complications Sep-2 5 Rusty WOODS RVT, RPVI Robert. [address] [place] [address], [place], [place], [id number] , [place]. tel: [phone] [facility], [address] [place] [address] Dr Webster [address]SuChago [place]dez [place], [id number], [place] tel:[phone] [facility] Varicose veins of left lower extremity with other complications Varicose veins of right lower extremity with inflammationV aricose veins of left lower extremity with inflammationP ain in right lower leg Sep-0 5 Rusty WOODS RVT, RPVI Robert. [address] [place] [address], [place], [place], [id number] , [place]. tel: [phone] [facility], [address] [place] [address] Dr [address]SuChago valdez [place], [id number], [place] tel:[phone] [facility] Type 2 diabetes mellitus without complications Restless legs syndromeLymph edema, not elsewhere classifiedPru ritus, unspecifiedDi sorder of pigmentation, unspecifiedPa in in left lower legHereditary lymphedemaCra mp and spasmLocalize d edemaVaricose veins of left lower extremity with other complications Varicose veins of right lower extremity with inflammationV aricose veins of left lower extremity with inflammationP ain in right lower leg 5 Rusty WOODS, DEMETRIA, ESTHER Palomino. [address] [facility], [address], [place], [id number] , [place]. tel:[phone] [facility], [address] [facility] [address], [place], [id number], [place] tel:[phone] [facility] [place] Chronic venous hypertension (idiopathic) with other complications of bilateral lower extremity 5 Rusty WOODS RVT, ESTHER [place]. [address] [facility], [address], [place], [id number] , [place]. tel:[phone] Family History Family Member Type Diagnosis Age At Onset No Information Payers Payer name Insurance type Identifiers Authorization(s) Com mentshira ROSE [place] iber ID: [id number] Name: Coverage Status Eligibility Check on: [id number] nship to Subscriber: selfPayer Address: [address], [place], [address], [place] Phone: [phone] Medical [facility] iber ID: [id number] Name: Coverage Status Eligibility Check on: [id number] nship to Subscriber: selfPayer Address: [address], [place], [place], [id number] Phone: [phone] Social History Type Description Quantity Date Captured Comments Alcohol Use Details Unknown Caffeine Use Details Unknown Tobacco Use Status Current non-smoker Smoking Status Never Smoker Non-Smoking Tobacco Use Details : No Details Available : No Details Available Sex Female Current Gender Female (finding) Vital Signs Date / Time: Height Weight BMI Pulse Rate Blood Pressure Temperature Respiratory Rate Body Surface Area Head Circumference Head Circ. Percentile Wt./Anthony. Percentile BMI percentile Pulse Ox Inhaled Ox 65.770 kg (145.00 lbs) 24.9 4 kg/m eter (2) 118/78 mm[Hg] Chief Complaint And Reason For Visit No Information Plan Of Treatment Date Type Action Status Goal Diet education completed Goal Diet education completed Referral Ordered: Weight management: Referral to physician timeframe: 3 Months (related to Body mass index (BMI) 24.0-24.9, adult) ordered Referral Ordered: Weight management: Referral to physician timeframe: 3 Months (related to Body mass index (BMI) 24.0-24.9, adult) ordered History Of Present Illness Encounter Date Complaint History Of Prese nt Illness No Information Functional Status Date Description Comments No Information Instructions Date Instruction Additional Infor maria luisa Pre and post instruc tions reviewed and provided Related to Venous insufficiency (chronic) (peripheral) Patient education booklet given Related to Venous insufficiency (chronic) (peripheral) Lifestyle education Related to B crista mass index (BMI) 24.0-24.9, adult Giving Encouragement to exercise Related to Body mass index (BMI) 24.0-24.9, adult Diet education Related to Body mass index (BMI) 24.0-24.9, adult Giving Encouragement to exercise Related to Body mass index (BMI) 24.0-24.9, adult Diet education Related to Body mass index (BMI) 24.0-24.9, adult Pre and post instruc tions reviewed and provided Related to Varicose veins of left lower extremity with other complications Patient education booklet given Related to Varicose veins of left lower extremity with other complications Lifestyle education Related to B crista mass index (BMI) 24.0-24.9, adult Assessments Type Assessment Date No Information
--- OUTSIDE RECORDS SUMMARY | 2025-10-23 07:43 | XMS_ITS | Data Portability ---
Author Organization [place] [facility] Address [address] [place] [address] Care Team Providers Care Candy Forming Machine Operator Name Role Phone MONTEZ WALL Referring Provider [phone] Assessment No assessment recorded. Plan of Treatment [...] tablet,jazmine h resistant,e xtended release 2015 016 [email or web address] Not available 3 16:56:39 Dilaudid 2 mg [...] tablet,jazmine h resistant,e xtended release 2015 016 [email or web address] Not available 3 16:56:39 Dilaudid 2 mg [...] tablet,jazmine h resistant,e xtended release 2015 016 [email or web address] Not available 3 16:56:38 Dilaudid 2 mg [...] By Organization Details Last Modified Time 04/03/2016 [id number] Discharge to [facility] with meds and services on 04/04/16 [...] Recorded Time Spinal stenosis of lumbar region 50736901 Active Karma Gloria , WINDOW TRIMMER [address] [place] [address], [address], [facility] 15:05:49 Scoliosis deformity of spine 831580898 Active Karma Gloria , WINDOW TRIMMER [address] [place] [address], [address], [facility] 15:05:49 Candidiasis of mouth 43571934 Active Karma Gloria , WINDOW TRIMMER [address] [place] [address], [address], [facility] 15:00:47 Urinary tract infectious disease 33018212 Active Karma Gloria , WINDOW TRIMMER [address] [place] [address], [address] 1, [facility] 15:05:49 Anxiety 57167055 Active Karma Gloria , WINDOW TRIMMER [address] [place] [address], [address], [facility] 15:05:49 Hyperlipidemia 68793715 Active Karma Gloria , WINDOW TRIMMER [address] [place] [address], [address] 1, [facility] 15:00:47 Gastroesophage al reflux disease 925664336 Active Karma Gloria , WINDOW TRIMMER [address] [place] [address], [address]05[address] 1, [facility] 15:00:47 Medullary sponge kidney without nephrocalcinos is 542809785 Active Karma Gloria , WINDOW TRIMMER [address] [place] [address], 58[address]760 1, [facility] 15:00:47 Problem Notes None recorded. Medical Equipment None Reported. Allergies Allergen ID Allergen Name Allergen Category Reaction Reaction Severity Criticality Documentation Date Start Date Code Code System Note Provider Name and Address Organization Details Recorded Time 18945 codeine medicatio n Not available Not available Not available 03/31/2016 2670 RxNorm Karma Gloria , WINDOW TRIMMER [address] [place] [address], [address], [facility] [...] 03/31/2016 88 /min 135/62 mm[Hg] Karma Gloria, WINDOW TRIMMER [address] [place] [address], [address] 03/31/2016 17:00:11 Date Recorded Heart rate Oxygen saturation Systolic And Diastolic Provider Name and Address Organization Details Last Updated DateTime 04/01/2016 103 /min 98 % 113/65 mm[Hg] Tato Alvarado MD [address] [place] [address], [address] 04/01/2016 16:43:47 Date Recorded Systolic And Diastolic Provider Name and Address Organization Details Last Updated DateTime 04/02/2016 111/73 mm[Hg] Karma Gloria NP [address] [place] [address], [address] 04/05/2016 15:03:01 Social History Question Answer Notes LastModified by Organizat ion Details LastModified Time Tobacco Smoking Status Never Smoker Not Available [facility] 09/03/2020 03:36:16 How Much Tobacco Do You Smoke? No [id number] Information not available 09/03/2020 Sex: Unknown Functional Status None recorded. Mental Status None recorded. Family History Nothing Reported. Medical History No medical history recorded. Gynecological HistoryNo gynecological history recorded. Obstetrics History GPAL:G 0 P 0 0 0 0 Past Encounters Encounter ID Performer Location Encounter Start Date Encounter Closed Date Diagnosis/Indication Diagnosis SNOMED-CT Code Diagnosis ICD10 Code Diagnosis IMO Codes Diagnosis Note [id number] Karma Gloria NP [facility] [address] [place] [address] 03/31/2016 16:42:57 03/31/2016 17:08:42 Spinal stenosis of lumbar region 55144414 M48.06 Would like to be awoken during the night so will schedule dilaudid ATC Q3H Scoliosis deformity of spine 138413489 Q67.5 Has noticed that she is straighter than pre op Candidiasis of mouth 797 90700 B37.9 Urinary tr act infectious disease 94311381 N39.0 Continue for 7 days Anxiety 98929923 F41.9 Hyperlipidemia 04403738 E78.5 Gastroesop hageal reflux disease 121294905 K21.9 [id number] Tato Alvarado MD [facility] [address] [facility] [place] [address] 04/01/2016 08:27:25 04/01/2016 16:59:55 Spinal stenosis of lumbar region 79531222 M48.06 Would like to be awoken during the night so will schedule dilaudid ATC Q3H Scoliosis deformity of spine 912353796 Q67.5 Has noticed that she is straighter than pre op Candidiasis of mouth 797 36949 B37.9 Tiny residual noted, but improving Urinary tr act infectious disease 68234212 N39.0 Continue for 7 days Anxiety 47443423 F41.9 Hyperlipidemia 24700615 E78.5 Gastroesop hageal reflux disease 894763858 K21.9 Medullary sponge kidney without nephrocalcinosis 546776284 Q61.5 Has hx of stones in past [id number] Karma Gloria NP [facility] [address] [place] [address] 04/02/2016 10:28:36 04/05/2016 15:07:14 Spinal stenosis of lumbar region 17212338 M48.06 Her function is very good and I have told her that i think it is not more than expected after her surgery Scoliosis deformity of spine 985816113 Q67.5 Has noticed that she is straighter than pre op Urinary tr act infectious disease 03155409 N39.0 Continue Bactrim for a total of7 days. I think it unlikely that her back pain is causing by the UTI Anxiety 72365769 F41.9 [id number] Karma Gloria NP [facility] [address] [place] [address] 04/03/2016 08:58:45 04/03/2016 17:52:24 Spinal stenosis of lumbar region 05404290 M48.06 IS taking dilaudid 6 mg ATC Q3H. I have given her a script fro another #90 tabs. She also has #7 tramadol here and I will give her a script for another #30. She has enough oxycontin to complete the taper. Scoliosis deformity of spine 513267169 Q67.5 Has noticed that she is straighter than pre op Candidiasis of mouth 797 14631 B37.9 Tiny residual noted, but improving Urinary tr act infectious disease 76932394 N39.0 Last dose of bactrim today. Will repeat urine culture at her request Anxiety 43396061 F41.9 Has #14 ativan that she will take home with her. No further script given Hyperlipidemia 02307247 E78.5 Gastroesop hageal reflux disease 230792874 K21.9 Medullary sponge kidney without nephrocalcinosis 844245069 Q61.5 Has hx of stones in past Health Concerns Section Related Observation LastModified by Organization Detai ls LastModified Time None Recorded Concern Status LastModified by Organization Details LastModified Time None Recorded Advance Directives Directive None Recorded Payers Insurance Date Sequence Insurance Name Policy Number Policy Muñiz Covered Member ID Muñiz Member ID Guarantor Name 04/03/2016 1 [place] [employer] Mellissa Debo [id number] Mellissa Edmondson 04/03/2016 2 [place] Mellissa A Ralphrow [id number] Mellissa Debo 06/10/2016 2 [place] Mellissa Garrow [id number] Mellissa Edmondson Notes Date Note Type Note Provider Name and Address Organization Details Recorded Time 03/31/2016 text/html This 65 yo woman was admitted to [facility] she [facility] scoliosis reducing surgery [...] she was repleted Karma Gloria NP [address] [place], [address], [facility] 03/31/2016 17:07:59 04/01/2016 text/html This 65 yo woman was admitted to on 03/30 for STR after spine [facility] for [facility] by [facility]. Wall. She had extensive [...] scoliosis, and anxiety. Tato Alvarado MD [address] [place], [address], [facility] 04/01/2016 16:59:33 04/02/2016 text/html ROS [...] being treated with bactrim Karma Gloria NP [address] [place], [address], [facility] 04/05/2016 15:06:13 OBGyn Episode No OBEpisode recorded.
--- OUTSIDE RECORDS SUMMARY | 2025-10-23 07:43 | XMS_ITS | Encounter Summary ---
Author Organization Génesis Mcmanus [facility] Address [address] [place] [address] Care Team Providers Care Forensic Science Technician Name Role Phone Unknown, Provider Primary Care Provider Unava ilable Reason for Referral * Diagnostic Imaging (Routine) - Closed Specialty Diagnoses / Procedures Referred By Contac t Referred To Contact Diagnoses Scoliosis, unspecified scoliosis type, unspecified spinal region Procedures XR Scoliosis Survey 2-3 VW Escobar Wall MD [address] [place] [address] Phone: tel: fax: Referral ID Status Reason Start Date Expiration Date Visits Re quested Visits Authorized [id number] Closed 05/17/2025 08/10/2026 1 1 Encounter Details Date Type Department Care Team (Late st Contact Info) Description 05/15/2025 [facility] Escobar Wall MD [address] [place] [address] Scoliosis, unspecified scoliosis type, unspecified spinal region (Primary Dx) Social History Tobacco Use Types Packs/Day Years Used Date Smoking Tobacco: Never Assessed Comments Unknown Sex and Gender Information Value Date Recorded Sex Assigned at Female 05/17/2025 1:12 PM EDT Legal Sex Female 5:42 PM EST Gender Identity Female 05/17/2025 1:12 PM EDT Sexual Orientation Not on file documented as of this encounter Plan of Treatment Not on file documented as of this encounter Results * XR Scoliosis Survey 2-3 VW (05/17/2025 1:55 PM EDT) Anatomical Region Laterality Modality Spine Digital Radiogra phy 05/17/2025 4:49 PM EDT Narrative 05/17/2025 4:51 PM EDT Indication: Post op Check. TECHNIQUE: Frontal and lateral views of the entire spine including frontal and lateral views of the pelvis was performed on the EOS low-dose system. Findings: There has been transpedicular fixation from the lower thoracic spine to the sacrum with bilateral iliac screw fixation. No evidence of hardware complication or malalignment. No change in alignment from 01/12/2019. There is moderate dextroconvex thoracolumbar scoliosis present. There is right hip joint osteoarthritis noted. No osseous lesion is detected. Overall assessment of incidental osseous lesions and soft tissue abnormalities is limited due to the decreased rekphz-gi-vizip inherent to the EOS technology. Procedure Note Leonard Hill MD - 05/17/2025 Indication: Post op Check. TECHNIQUE: Frontal and lateral views of the entire spine including frontal and lateral views of the pelvis was performed on the EOS low-dose system. Findings: There has been transpedicular fixation from the lower thoracic spine to the sacrum with bilateral iliac screw fixation. No evidence of hardware complication or malalignment. No change in alignment from 01/12/2019. There is moderate dextroconvex thoracolumbar scoliosis present. There is right hip joint osteoarthritis noted. No osseous lesion is detected. Overall assessment of incidental osseous lesions and soft tissue abnormalities is limited due to the decreased rcehry-bb-bssai inherent to the EOS technology. Escobar Wall MD IMG DIAGNOSTIC IMAGING ORDERABLE S Final Result documented in this encounter Visit Diagnoses Diagnosis Scoliosis, unspecified scoliosis type, unspecified spinal region- Primary Scoliosis, unspecified scoliosis type, unspecified spinal region documented in this encounter Care Teams Forensic Science Technician Relationship Specialty Start Date End Date Unknown, Provider, [address] [place] [address] PCP - General 05/17/25 documented as of this encounter
--- OUTSIDE RECORDS SUMMARY | 2025-10-23 07:43 | XMS_ITS | Clinical Summary ---
Author Organization Génesis Mcmanus [facility] Address [address] [place] [address] Care Team Providers Care Delivery Professional Name Role Phone Unknown, Provider Primary Care Provider Unava ilable Social History Tobacco Use Types Packs/Day Years Used Date Smoking Tobacco: Never Assessed Comments Unknown Sex and Gender Information Value Date Recorded Sex Assigned at Female 05/17/2025 1:12 PM EDT Legal Sex Female 5:42 PM EST Gender Identity Female 05/17/2025 1:12 PM EDT Sexual Orientation Not on file Last Filed Vital Signs Vital Sign Reading Time Taken Comments Blood Pressure - - Pulse - - Temperature - - Respiratory Rate - - Oxygen Saturation - - Inhaled Oxygen Concentration - - Weight 62.1 kg (137 lb) 03/31/2016 11:14 AM EDT Height 160 cm (5' 3 ) 03/27/2016 10:47 AM EDT Body Mass Index 24.27 03/27/2016 10:47 AM EDT Plan of Treatment Health Maintenance Due Date Last Done Comments Blood Pressure 1952 Lipid Panel 1952 Depression Screening 1964 Hepatitis C Screening 1970 DTaP,Tdap,and Td Vaccines (1 - Tdap) [address] Cancer [address]ening 1992 CT Colonography 1997 Colonoscopy 1997 Colorectal Cancer Screening 1997 FIT 1997 FOBT 1997 Multitarget Stool DNA (Cologuard) 1997 Sigmoidoscopy 1997 Pneumococcal Vaccine: 50+ Ye ars (1 of 1 - PCV) 2002 Zoster Vaccine (1 of 2) 2002 Osteoporosis Screening 2017 COVID-19 Vaccine ( - 2024-2 6 season) 2025 Influenza Vaccine (#1) 2025 Meningococcal B Vaccines Aged Out No longer eligible based on patient's age to complete this topic Meningococcal Vaccines Aged Out No lo nger eligible based on patient's age to complete this topic Insurance [employer]ive IP [facility] Care Teams Delivery Professional Relationship Specialty Start Date End Date Unknown, Provider, [address] [place] [address] PCP - General 05/17/25
--- NOTE | 2025-10-23 07:48 | AM.OFFWIN_ITS ---
Intake Vital Signs 10/23/25 07:49 Height 5 ft 5 in Weight 144 lb BMI 24.0 BP 160/84 H Blood Pressure Location Lt brachial Position Sitting Pulse 92 Pulse Source Pulse Oximeter Temp 97.5 F Temp Source Oral Pulse Oximetry (%) 97 Oxygen Delivery Method Room Air Intake Visit Reasons: EP-rt hand swollen Intake Note: Patient presents c/o right hand swelling/pain/redness since July related to pulling out some haines at home. Patient Tobacco Use Status: Never used Tobacco Allergies codeine Allergy (Verified 10/23/25 07:52) Unknown HPI HPI Comments History of Present Illness Details History of Present Illness - The patient is a 75-year-old female pr esenting with a complaint of right finger and hand swelling and numbness. - The issue began in late July or O ct when she felt a pinch on her hand while pulling dried haines without gloves on, suspecting a sliver. - She observed a small puncture but coul d not see a foreign body, and she washed the area and applied topical antibiotics. - Initially, the finger was slightly sor e, then symptoms improved but have recurred intermittently with some swelling. - Over the past day, the finger has beco me numb and more swollen, which prompted her to seek care. - The patient reports the right index fi nger on the palmar side feels stiff. - The patient is right-handed. - She recently completed a course of talisha xicillin a few days ago for a root canal. - She denies fever, chills, discharge, i nduration, streaking, or bleeding. Physical Exam General: Cooperative, healthy appearing, comfortable, no acute distress and well developed Orientation: Patient oriented x3 Limitations: No limitations Respiratory: Normal respiratory effort and able to speak in complete sentences. Clear to auscultation bilaterally Cardiovascular: Regular rate and rhythm. Normal S1 and S2. Pulses are 2+ on the UE. Skin: Swelling and redness noted on the right index finger. Warmth noted, no streaking. No induration noted. Neuro: Patient oriented x3. Sensation is intact. Extremities: Swelling noted on the right index finger. No deformity noted. FROM of the right index finger at the MCP, PIP, and DIP joints. TTP of the right index finger at the MCP joint. FROM of the right wrist. Hand sugar cane planter intact. Patient was informed and verbally consented to the use of an ambient scribe for clinic note documentation during this visit [facility] Medical History (Updated 09/19/25 @ 09:54 by Dean Colmenares MD) Osteoporosis Scoliosis Low back pain Cat bite of right lower leg Age-related osteoporosis without current pathological fracture Knee pain Diabetes Constipation Meningioma Hyperlipidemia Anxiety Surgical History History of tooth extraction History of root canal procedure Encounter for orthopedic aftercare following scoliosis surgery History of ureter stent History of vein stripping History of partial hysterectomy History of colonoscopy (~07/06/23) Status post breast reduction Family History Father No problems noted. Mother Stroke Cancer Brother S/P triple vessel bypass Blind Brother Afib Daughter Bipolar 1 disorder Mental problem Family/Other FH: mental illness Social History Housing: House Alcohol intake: current Alcohol intake frequency: does not drink Patient Tobacco Use Status: Never used Tobacco e-Cigarette/Vaping Use: Never Used Second Hand Smoke Exposure: Yes service: No Current occupational status: retired Cognitive needs: No Hearing needs: No Vision needs: No Review of Systems Const All systems reviewed & are unremarkable except as noted in HPI and below Physical Exam Vital Signs: Last Vital Signs Temp 97.5 F 10/23/25 07:49 Pulse 92 10/23/25 07:49 BP 160/84 H 10/23/25 07:49 Pulse Ox 97 10/23/25 07:49 Oxygen Delivery Method Room Air 10/23/25 07:49 BMI result Body Mass Index 24.0 Results Reviewed Results Reviewed: will reivew the xray in the office Assessment & Plan Assessment & Plan (1) Swelling of right hand: Code(s): M79.89 - Other specified soft tissue disorders (2) Finger pain, right: Code(s): M79.644 - Pain in right finger(s) Plan Most likely cellulitis vs gout vs ?retained FB vs septic arthritis plan - rest, ice and elevation to the hand - tylenol, motrin or naproxen as needed for pain - will order an x-ray to r/o FB and osteomyelitis, etc - start Doxycycline 100 mg BID for 7 days - prednisone burst for 5 days - will call with the results of the xray - may need a referral to ortho - follow up with PCP Orders: Orders XR hand RT min 3V Today M79.641 - Pain in right hand Medications: New doxycycline hyclate 100 mg PO BID 14 tabs 0RF prednisone 40 mg (2 x 20 mg) PO DAILY 10 tabs 0RF 5 days Coding Level of Care Code Est Pt Level 4 (97926) Diagnoses Swelling of right hand M79.89 Finger pain, right M79.644
[2025-10-23 07:49] VITALS: BP 160/84; PULSE 92; TEMP 36.4; O2SAT 97; BMI 24.0
== END 2025-10-23 08:35 | disposition home or self-care (01) ==
PROVIDERS: PCP Internal Medicine; Visit Provider Physician Assistant Medical
DX: M79.89 Other specified soft tissue disorders (principal); M79.644 Pain in right finger(s)

== ENCOUNTER 2025-10-23 07:40 | Outpatient (REF) | payer MEDICARE, MEDICAID, SELFPAY ==
--- NOTE | ~2025-10-23 | XR_ITS ---
EXAMINATION: XR HAND 3 OR MORE VIEWS RIGHT HISTORY: M79.641 - Pain in right hand COMPARISON: There are no prior studies available for comparison. FINDINGS: Three views of the right hand are submitted. The bones are osteopenic. There is no fracture or dislocation. There is mild osteoarthritis of the DIP and PIP joints as well as the interphalangeal joint of the thumb and the 1st MCP joint. The soft tissues are unremarkable. XR/XR hand RT min 3V IMPRESSION: Osteopenia. Osteoarthritis as described. Electronically signed by: Candelario Vazquez MD 10/23/2025 09:16 AM EST
== END 2025-10-23 07:41 | disposition home or self-care (01) ==
LOC: HO.HMGCX 07:40
PROVIDERS: PCP Internal Medicine; Visit Provider Physician Assistant Medical
DX: M79.89 Other specified soft tissue disorders (principal); M79.644 Pain in right finger(s)
CPT/HCPCS: 73130

== ENCOUNTER → 2025-10-23 08:33 | Outpatient (BNV) | payer MEDICARE, MEDICAID, SELFPAY | PROVIDERS: PCP Internal Medicine; Visit Provider Radiology Diagnostic Radiology | DX: M19.041 Primary osteoarthritis, right hand (principal); M85.841 Other specified disorders of bone density and structure, right hand | CPT/HCPCS: 73130 ==